=== PATIENT | female | born 1955 | race African-American/Black ===

== ENCOUNTER 2017-01-22 19:56 | Emergency (ER) | payer OTHER ==
[~2017-01-22] VITALS: Ht 160 cm; Wt 82.0 kg
[~2017-01-22 19:56] MED LIST: AMLO5TAB96 PO; CITA10SO PO; PRIL10CA PO; PRIN20TA2 PO; SIMV20 PO
[2017-01-22 20:17] VITALS: BP 132/71; PULSE 126; RESP 20; O2SAT 95
--- NOTE | 2017-01-22 20:19 | PD ---
HPI Chief Complaint: Anxiety Time Seen by Provider: 20:09 Travel History International Travel<30 days: No Contact w/Intl Traveler<30days: No Traveled to known affect area: No History of Present Illness HPI 61-year-old female with history of bipolar disorder, hypertension, GERD, presents to the emergency department voluntarily for psychiatric evaluation. Patient states she has been taking her medication as she has been instructed. She states today that she had a panic attack. She has not had one of these for quite some time and it caused her to be scared. She states she has been having worsening depression and bad thoughts. She does not elaborate on this. She states that she needs to talk to somebody. She denies suicidal or homicidal ideations. She denies any chest pain or tightness. No difficulty breathing. No recent illnesses, fever, or chills. She denies any other medical needs at this time. No other symptoms to report. PFSH Past Medical History Arthritis: Yes (osteoarthritis) Anxiety: Yes Depression: Yes Heart Rhythm Problems: Yes Cancer: No Cardiovascular Problems: Yes (says has a murmur) High Cholesterol: Yes Chest Pain: Yes (occas. by hx) Congestive Heart Failure: No Endocrine: No GERD: Yes Glaucoma: No Genitourinary: Yes (hx of "inflammed kidneys") Headaches: Yes Hepatitis: No Hypertension: Yes Immune Disorder: No Musculoskeletal: Yes Neurologic: Yes Psychiatric: Yes Reproductive: Yes (had hyst.) Respiratory: Yes Myocardial Infarction: No Sickle Cell Disease: No (says has "sickle cell trait") Sleep Apnea: No Past Surgical History Abdominal Surgery: Yes (cholecystectomy 10/25/09) Appendectomy: No Cholecystectomy: Yes (10/25/09) Gynecologic Surgery: Yes (hysterectomy--early 30's) Hysterectomy: Yes Oral Surgery: Yes (TEETH EXTRACTION) Social History Alcohol Use: No Tobacco Use: No Substance Use: No Allergies-Medications (Allergen,Severity, Reaction): Coded Allergies: penicillin G (Verified Allergy, Intermediate, Hives, 01/22/17) Reported Meds & Prescriptions Reported Meds & Active Scripts Active Reported Celexa (Citalopram Hydrobromide) 10 Mg/5 Ml Romy 20 Mg PO Prilosec (Omeprazole) 10 Mg Cap 0 PO UNKNOWN DOSE Prinivil (Lisinopril) 20 Mg Tab 20 Mg PO DAILY Norvasc (Amlodipine Besylate) 5 Mg Tab 5 Mg PO DAILY Zocor (Simvastatin) 20 Mg Tab 20 Mg PO HS Review of Systems Except as stated in HPI: all other systems reviewed are Neg Physical Exam Narrative GENERAL: Obese older than stated age appearing female patient, sitting in bed, in no acute distress SKIN: Focused skin assessment warm/dry. HEAD: Atraumatic. Normocephalic. EYES: Pupils equal and round. No scleral icterus. No injection or drainage. ENT: No nasal bleeding or discharge. Mucous membranes pink and moist. NECK: Trachea midline. No JVD. CARDIOVASCULAR: Tachycardic rate and rhythm. 2/6 systolic murmur appreciated. RESPIRATORY: No accessory muscle use. Clear to auscultation. Breath sounds equal bilaterally. GASTROINTESTINAL: Abdomen soft, non-tender, nondistended. Hepatic and splenic margins not palpable. MUSCULOSKELETAL: No obvious deformities. No clubbing. No cyanosis. No edema. NEUROLOGICAL: Awake and alert. No obvious cranial nerve deficits. Motor grossly within normal limits. Normal speech. Data Data Last Documented VS Vital Signs Date Time Temp Pulse Resp B/P (MAP) Pulse Ox O2 Delivery O2 Flow Rate FiO2 01/22/17 22:41 96 20 122/67 (85) 96 01/22/17 20:23 98.3 01/22/17 20:17 Room Air Orders Orders Complete Blood Count With Diff (01/22/17 20:14) Basic Metabolic Panel (Bmp) (01/22/17 20:14) Urinalysis - C+S If Indicated (01/22/17 20:14) Electrocardiogram (01/22/17 20:14) Iv Access Insert/Monitor (01/22/17 20:14) Psych Screen (01/22/17 20:14) Drug Screen, Random Urine (01/22/17 20:14) Alcohol (Ethanol) (01/22/17 20:14) Sodium Chlorid 0.9% 500 Ml Inj (Ns 500 M (01/22/17 20:30) Chest, Single Ap (01/22/17 ) Lorazepam Inj (Ativan Inj) (01/22/17 20:45) B-Type Natriuretic Peptide (01/22/17 20:50) Ckmb (Isoenzyme) Profile (01/22/17 20:50) D-Dimer (01/22/17 20:50) Magnesium (Mg) (01/22/17 20:50) Prothrombin Time / Inr (Pt) (01/22/17 20:50) Act Partial Throm Time (Ptt) (01/22/17 20:50) Troponin I (01/22/17 20:50) Urine Culture (01/22/17 21:00) CKMB (01/22/17 21:00) CKMB% (01/22/17 21:00) Ceftriaxone Inj (Rocephin Inj) (01/22/17 22:00) Sodium Chlor 0.9% 1000 Ml Inj (Ns 1000 M (01/22/17 22:00) Sodium Chlorid 0.9% 500 Ml Inj (Ns 500 M (01/22/17 22:45) Labs Laboratory Tests Test 01/22/17 20:20 01/22/17 21:00 White Blood Count 15.5 TH/MM3 Red Blood Count 5.10 MIL/MM3 Hemoglobin 13.5 GM/DL Hematocrit 40.4 % Mean Corpuscular Volume 79.2 FL Mean Corpuscular Hemoglobin 26.6 PG Mean Corpuscular Hemoglobin Concent 33.6 % Red Cell Distribution Width 14.3 % Platelet Count 477 TH/MM3 Mean Platelet Volume 7.3 FL Neutrophils (%) (Auto) 79.2 % Lymphocytes (%) (Auto) 12.5 % Monocytes (%) (Auto) 7.5 % Eosinophils (%) (Auto) 0.2 % Basophils (%) (Auto) 0.6 % Neutrophils # (Auto) 12.3 TH/MM3 Lymphocytes # (Auto) 1.9 TH/MM3 Monocytes # (Auto) 1.2 TH/MM3 Eosinophils # (Auto) 0.0 TH/MM3 Basophils # (Auto) 0.1 TH/MM3 CBC Comment DIFF FINAL Differential Comment Blood Urea Nitrogen 32 MG/DL Creatinine 1.93 MG/DL Random Glucose 111 MG/DL Calcium Level 9.5 MG/DL Sodium Level 136 MEQ/L Potassium Level 3.8 MEQ/L Chloride Level 100 MEQ/L Carbon Dioxide Level 26.1 MEQ/L Anion Gap 10 MEQ/L Estimat Glomerular Filtration Rate 32 ML/MIN Ethyl Alcohol Level LESS THAN 3 MG/DL Prothrombin Time 11.8 SEC Prothromb Time International Ratio 1.1 RATIO Activated Partial Thromboplast Time 26.1 SEC D-Dimer Quantitative (PE/DVT) 0.46 MG/L FEU Urine Color YELLOW Urine Turbidity HAZY Urine pH 5.0 Urine Specific [place] 1.015 Urine Protein TRACE mg/dL Urine Glucose (UA) NEG mg/dL Urine Ketones NEG mg/dL Urine Occult Blood SMALL Urine Nitrite NEG Urine Bilirubin NEG Urine Urobilinogen LESS THAN 2.0 MG/DL Urine Leukocyte Esterase LARGE Urine RBC 8 /hpf Urine WBC /hpf Urine WBC Clumps RARE Urine Squamous Epithelial Cells 6 /hpf Urine Transitional Epithelial Cells 5 /hpf Urine Amorphous Sediment RARE Urine Bacteria MANY /hpf Urine Hyaline Casts 2 /lpf Urine Mucus FEW /lpf Microscopic Urinalysis Comment CULTURE INDICATED Magnesium Level 2.3 MG/DL Total Creatine Kinase 114 U/L Creatine Kinase MB 2.1 NG/ML Troponin I LESS THAN 0.02 NG/ML B-Type Natriuretic Peptide 8 PG/ML Urine Opiates Screen NEG Urine Barbiturates Screen NEG Urine Amphetamines Screen NEG Urine Benzodiazepines Screen NEG Urine Cocaine Screen NEG Urine Cannabinoids Screen NEG MDM Medical Decision Making Medical Screen Exam Complete: Yes Emergency Medical Condition: Yes Medical Record Reviewed: Yes Differential Diagnosis Mood disorder versus personality disorder versus adjustment reaction disorder versus panic attack versus electrolyte abnormality versus arrhythmia Narrative Course 61-year-old female presents to emergency department voluntarily for psychiatric evaluation for worsening depression, anxiety, and a panic attack episode today. Patient currently appears without distress. She is tachycardic but denies any pain or shortness of breath. EKG is completely reviewed per my attending physician. Tachycardic rate with some st depression. The patient is not having any pain. Cardiac enzymes were added to lab work. Chest x-rays without acute cardiopulmonary disease. Patient is given some IV Ativan and IV normal saline fluid. Laboratory Tests Test 01/22/17 20:20 01/22/17 21:00 White Blood Count 15.5 TH/MM3 Red Blood Count 5.10 MIL/MM3 Hemoglobin 13.5 GM/DL Hematocrit 40.4 % Mean Corpuscular Volume 79.2 FL Mean Corpuscular Hemoglobin 26.6 PG Mean Corpuscular Hemoglobin Concent 33.6 % Red Cell Distribution Width 14.3 % Platelet Count 477 TH/MM3 Mean Platelet Volume 7.3 FL Neutrophils (%) (Auto) 79.2 % Lymphocytes (%) (Auto) 12.5 % Monocytes (%) (Auto) 7.5 % Eosinophils (%) (Auto) 0.2 % Basophils (%) (Auto) 0.6 % Neutrophils # (Auto) 12.3 TH/MM3 Lymphocytes # (Auto) 1.9 TH/MM3 Monocytes # (Auto) 1.2 TH/MM3 Eosinophils # (Auto) 0.0 TH/MM3 Basophils # (Auto) 0.1 TH/MM3 CBC Comment DIFF FINAL Differential Comment Blood Urea Nitrogen 32 MG/DL Creatinine 1.93 MG/DL Random Glucose 111 MG/DL Calcium Level 9.5 MG/DL Sodium Level 136 MEQ/L Potassium Level 3.8 MEQ/L Chloride Level 100 MEQ/L Carbon Dioxide Level 26.1 MEQ/L Anion Gap 10 MEQ/L Estimat Glomerular Filtration Rate 32 ML/MIN Ethyl Alcohol Level LESS THAN 3 MG/DL Prothrombin Time 11.8 SEC Prothromb Time International Ratio 1.1 RATIO Activated Partial Thromboplast Time 26.1 SEC D-Dimer Quantitative (PE/DVT) 0.46 MG/L FEU Urine Color YELLOW Urine Turbidity HAZY Urine pH 5.0 Urine Specific [place] 1.015 Urine Protein TRACE mg/dL Urine Glucose (UA) NEG mg/dL Urine Ketones NEG mg/dL Urine Occult Blood SMALL Urine Nitrite NEG Urine Bilirubin NEG Urine Urobilinogen LESS THAN 2.0 MG/DL Urine Leukocyte Esterase LARGE Urine RBC 8 /hpf Urine WBC /hpf Urine WBC Clumps RARE Urine Squamous Epithelial Cells 6 /hpf Urine Transitional Epithelial Cells 5 /hpf Urine Amorphous Sediment RARE Urine Bacteria MANY /hpf Urine Hyaline Casts 2 /lpf Urine Mucus FEW /lpf Microscopic Urinalysis Comment CULTURE INDICATED Magnesium Level 2.3 MG/DL Total Creatine Kinase 114 U/L Creatine Kinase MB 2.1 NG/ML Troponin I LESS THAN 0.02 NG/ML B-Type Natriuretic Peptide 8 PG/ML Urine Opiates Screen NEG Urine Barbiturates Screen NEG Urine Amphetamines Screen NEG Urine Benzodiazepines Screen NEG Urine Cocaine Screen NEG Urine Cannabinoids Screen NEG Patient tox screen is negative. Troponin is less than 0.02. Patient does have urinalysis findings consistent with UTI. She's given IV Rocephin here. She is medically cleared to undergo psychiatric screening for further evaluation and disposition. Mental health screening discussed with the patient. Psychiatric screen ordered. Diagnosis Primary Impression: Mood disorder Additional Impressions: Anxiety Depressed Qualified Codes: F32.9 - Major depressive disorder, single episode, unspecified UTI (urinary tract infection) Qualified Codes: N39.0 - Urinary tract infection, site not specified; R31.9 - Hematuria, unspecified Scripts Cephalexin (Keflex) 500 Mg Cap 500 MG PO Q12H for Infection for 7 Days, CAP 0 Refills Prov: Chinyere Russo 01/22/17 Condition: Stable Chinyere Russo Jan 22, 2017 20:19
[2017-01-22 20:23] VITALS: BP 132/71; PULSE 126; RESP 20; TEMP 98.3
[2017-01-22] MEDS ORDERED: SODIUM CHLORID 0.9% 500 ML INJ 500 ML IV ONE ×2 (20:30→22:45)
[2017-01-22 20:40] LABS: AUTOMATED NEUTROPHIL # 12.3 TH/MM3 (1.8-7.7); BASOPHIL # 0.1 TH/MM3 (0-0.2); BASOPHIL % 0.6 % (0.0-2.0); EOSINOPHIL % 0.2 % (0.0-4.0); HEMATOCRIT 40.4 % (35.0-46.0); HEMO FLAGS DIFF FINAL; LYMPH % 12.5 % (9.0-44.0); LYMPHOCYTE # 1.9 TH/MM3 (1.0-4.8); MEAN CELL VOLUME 79.2 FL (80.0-100.0); MEAN CORPUSCULAR HEMOGLOBIN 26.6 PG (27.0-34.0); MEAN CORPUSCULAR HGB CONC 33.6 % (32.0-36.0); MONO % 7.5 % (0.0-8.0); NEUT % 79.2 % (16.0-70.0); PLATELET COUNT 477 TH/MM3 (150-450); RED CELL DISTRIBUTION WIDTH 14.3 % (11.6-17.2); WHITE BLOOD COUNT 15.5 TH/MM3 (4.0-11.0)
[2017-01-22] MEDS ORDERED: LORazepam 2 MG/ML VIAL IV PUSH ONE (20:45)
[2017-01-22 21:00] LABS: ANION GAP 10 MEQ/L (5-15); BICARBONATE 26.1 MEQ/L (21.0-32.0); BLOOD UREA NITROGEN 32 MG/DL (7-18); CHLORIDE 100 MEQ/L (98-107); GLOMERULAR FILTRATION RATE 32 ML/MIN (>89); POTASSIUM 3.8 MEQ/L (3.5-5.1); SODIUM (NA) 136 MEQ/L (136-145)
[2017-01-22 21:01] LABS: ALCOHOL LESS THAN 3 MG/DL (0-5)
--- NOTE | 2017-01-22 21:37 | RADRPT ---
EXAM DATE/TIME: 01/22/2017 20:30 [place] COMPARISON: CHEST SINGLE AP, November 12, 2009, 9:50. INDICATIONS : Short of breath. MEDICAL HISTORY : None. SURGICAL HISTORY : None. ENCOUNTER: Initial ACUITY: 1 day PAIN SCORE: 0/10 LOCATION: Bilateral chest FINDINGS: A single view of the chest demonstrates the lungs to be symmetrically aerated without evidence of mas s, infiltrate or effusion. The cardiomediastinal contours are unremarkable. Osseous structures are intact. CONCLUSION: No acute disease. Riley Hopkins MD on January 22, 2017 at 21:35 Board Certified Radiologist. This report was verified electronically.
[2017-01-22 21:43] LABS: BACTERIA, URINE MANY /hpf; BLOOD, URINE SMALL (NEG); COMMENT (UR) CULTURE INDICATED; CULTURE IF INDICATED CULTURE INDICATED; GLUCOSE,URINE NEG (NEG); HYALINE CAST, URINE 2 /lpf (RARE); KETONE, URINE NEG (NEG); MUCUS URINE FEW /lpf (OCC); NITRITE,URINE NEG (NEG); SQUAMOUS EPITHELIAL CELL URINE 6 /hpf (0-5); TRANSITIONAL EPI CELLS, URINE 5 /hpf; URINE COLOR YELLOW (YELLW/STRAW)
[2017-01-22 21:52] LABS: MAGNESIUM 2.3 MG/DL (1.5-2.5)
[2017-01-22 21:55] LABS: CREATINE KINASE 114 U/L (26-192)
[2017-01-22] MEDS ORDERED: cefTRIAXone INJ 1,000 MG in SODIUM CHLORIDE 0.9% INJ 100 ML IV ONE (22:00)
[2017-01-22] MEDS ORDERED: SODIUM CHLOR 0.9% 1000 ML INJ 1,000 ML IV ONE (22:00)
[2017-01-22 22:08] LABS: CKMB 2.1 NG/ML (0.5-3.6)
[2017-01-22 22:23] LABS: APTT (PATIENT) 26.1 SEC (24.3-30.1); INTERNATIONAL NORMALIZED RATIO 1.1 RATIO; PROTHROMBIN TIME - PATIENT 11.8 SEC (9.8-11.6)
[2017-01-22 22:41] VITALS: BP 122/67; PULSE 96; RESP 20; O2SAT 96
[2017-01-22] MEDS ORDERED: CEPH-460 PO (23:57)
[2017-01-23 01:43] VITALS: BP 139/67; PULSE 106; RESP 20; O2SAT 99
[2017-01-23 12:52] VITALS: BP 130/70; PULSE 103; RESP 18; TEMP 98.3; O2SAT 98
[2017-01-23] MEDS ORDERED: BUSP10TA PO (17:59)
[2017-01-23] MEDS ORDERED: BENZ0.5T PO ×2 (17:59→18:54)
[2017-01-23] MEDS ORDERED: RISP2TAB37 PO (17:59)
[2017-01-23] MEDS ORDERED: REME45TA PO (17:59)
[2017-01-23] MEDS ORDERED: ZOLO100T PO (17:59)
[2017-01-23] MEDS ORDERED: AMIT100T2 PO (17:59)
[2017-01-23] MEDS ORDERED: LURA20TA PO (17:59)
[2017-01-23] MEDS ORDERED: CITA20TA4 PO (18:13)
[2017-01-23] MEDS ORDERED: OMEP10CA PO (18:13)
[2017-01-23] MEDS ORDERED: SIMV20TA PO (18:13)
[2017-01-23] MEDS ORDERED: AMLO5TAB2 PO (18:13)
[2017-01-23 18:15] VITALS: BP 138/68; PULSE 109; RESP 18; O2SAT 98
[2017-01-23] MEDS ORDERED: FLUC150T PO (18:48)
[2017-01-23] MEDS ORDERED: LOVA20TA PO (18:48)
[2017-01-23] MEDS ORDERED: HYDR12.56 PO (18:51)
[2017-01-23] MEDS ORDERED: GABA400C5 PO (18:56)
[2017-01-23 19:40] VITALS: BP 132/72; PULSE 88; RESP 20; O2SAT 97
[2017-01-23] MEDS ORDERED: VIST50CA PO (20:54)
[2017-01-23] MEDS ORDERED: ALPR.5 PO (20:54)
[2017-01-23] MEDS ORDERED: ISOS20TA PO (20:55)
[2017-01-23] MEDS ORDERED: NITROFURANTOIN MONOHYD MACROCR 100 MG CAP PO ONE (23:15)
[2017-01-23] MEDS ORDERED: LORazepam 1 MG TAB PO ONE (23:15)
[2017-01-23 23:42] VITALS: BP 145/92; PULSE 107; RESP 24; O2SAT 98
[2017-01-24 00:32] VITALS: BP 120/68; PULSE 92; RESP 20; O2SAT 96
[2017-01-24 06:34] VITALS: BP 144/88; PULSE 106; RESP 22; O2SAT 100
--- NOTE | 2017-01-24 11:40 | PD ---
History of Present Illness Chief Complaint: Anxiety Time Seen by Provider: 11:35 Travel History International Travel<30 Days: No Contact w/Intl Traveler<30days: No Known affected area: No Legal Status Legal Status: Voluntary History of Present Illness: History of Present Illness HPI 61-year-old female with history of depression and anxiety who presents to the emergency department voluntarily for psychiatric evaluation due to having had a panic attack. She has not had one of these for quite some time and it caused her to be scared. She states that she needs to talk to somebody. Patient seen. EMR reviewed. [place] [facility] [place] the care of . She has also been hospitalized at the [facility] The patient is seen with Herbert, case loader operator. She is an obese AA female who is dressed i [facility] go. She is awake, alert and humming. She is rocking back and forth in her bed. Speech is of low tone but she answers questions appropriately. She states that she has bee feeling anxious and has not been able to get the medications that she had taken in the past since she is going to [facility]. She denies any suicdal or homicidal ideation,intent or plan. No psychosis and no rachelle. Sanjana has been dx with a UTI as well. PFSH Past Medical History Arthritis: Yes (osteoarthritis) Bipolar Disorder: Yes Anxiety: Yes Depression: Yes Heart Rhythm Problems: Yes Cancer: No Cardiovascular Problems: Yes (says has a murmur) High Cholesterol: Yes Chest Pain: Yes (occas. by hx) Congestive Heart Failure: No Endocrine: No GERD: Yes Glaucoma: No Genitourinary: Yes (hx of "inflammed kidneys") Headaches: Yes Hepatitis: No Hypertension: Yes Immune Disorder: No Musculoskeletal: Yes Neurologic: Yes Psychiatric: Yes Reproductive: Yes (had hyst.) Respiratory: Yes Myocardial Infarction: No Sickle Cell Disease: No (says has "sickle cell trait") Sleep Apnea: No Tetanus Vaccination: Unknown ?: Not Past Surgical History Surgical History: Unable to Obtain Abdominal Surgery: Yes (cholecystectomy 10/25/09) Appendectomy: No Cholecystectomy: Yes (10/25/09) Gynecologic Surgery: Yes (hysterectomy--early 30's) Hysterectomy: Yes Oral Surgery: Yes (TEETH EXTRACTION) Psychiatric History Psychiatric History Hx Psychiatric Treatment: HAS BEEN TO THE [facility] TWICE. HER LAST ADMISSION HERE WAS IN 2009 HX OF [place]IA, PSYCHOTIC DEPRESSION History of Inpatient Treatment: Yes Guns or firearms in home: No Social History x 12 yeras. Lives with . has 2 daughters. Hx Alcohol Use: No Hx Tobacco Use: No Hx Substance Use: No Hx of Substance Use Treatment: No Family Psychiatric History Negative Allergies-Medications (Allergen,Severity, Reaction): Coded Allergies: penicillin G (Verified Allergy, Intermediate, Hives, 01/22/17) Reported Meds & Prescriptions Reported Meds & Active Scripts Active Keflex (Cephalexin) 500 Mg Cap 500 Mg PO Q12H 7 Days Reported Isosorbide Mononitrate 20 Mg Tab 30 Mg PO BID Take 2 doses 7 hours apart. Xanax (Alprazolam) 0.5 Mg Tab 0.5 Mg PO Q8H PRN Vistaril (Hydroxyzine Pamoate) 50 Mg Cap 50 Mg PO BID Benztropine (Benztropine Mesylate) 0.5 Mg Tab 1 Mg PO HS Hydrochlorothiazide 12.5 Mg Tab 12.5 Mg PO DAILY Lovastatin 20 Mg Tab 20 Mg PO DAILY Fluconazole 150 Mg Tab 150 Mg PO DAILY Amlodipine (Amlodipine Besylate) 5 Mg Tab 5 Mg PO DAILY Latuda (Lurasidone) 20 Mg Tab 80 Mg PO HS Buspirone (Buspirone HCl) 10 Mg Tab 10 Mg PO TID PRN Remeron (Mirtazapine) 45 Mg Tab 45 Mg PO HS Review of Systems Except as stated in HPI: all other systems reviewed are Neg Exam Alert: Yes Mobile: Person (ox4) Mood: Anxious Affect: Restricted Speech: Clear, Logical Eye Contact: Indirect Memory Intact: Comment (No impairment) Hallucinations: Other (Negative) Delusions: No Suicidal: Ideation (deneis any) Homicidal: Ideation (deneis any) Insight/Judgement Fair. Not impaired. MDM Medical Decision Making Medical Record Reviewed: Yes Assessment/Plan 61-year-old female with history of depression and anxiety who presents to the emergency department voluntarily for psychiatric evaluation due to having had a panic attack. reports s he has been unable to get Ativan which has helped her in the past because it is not prescribed at [facility]. her is making arrangements for her to be seen at another clinic. patient will like to receive a prescription for such medication. Case consulted with Dr. Rivera. He will prescribe Ativan 0.5 mg , prn for sxs of anxiety. Cleared from psychiatry for discharge . To follow up with outpatient provider. Orders Orders Lorazepam (Ativan) (01/23/17 23:15) Nitrofurantoin Monohyd Macrocr (Macrobid (01/23/17 23:15) Results Vital Signs Date Time Temp Pulse Resp B/P (MAP) Pulse Ox O2 Delivery O2 Flow Rate FiO2 01/24/17 06:34 106 22 144/88 (106) 100 Room Air 01/24/17 00:32 92 20 120/68 (85) 96 Room Air 01/23/17 23:42 107 24 145/92 (109) 98 Room Air 01/23/17 19:40 88 20 132/72 (92) 97 Room Air 01/23/17 18:15 109 18 138/68 (91) 98 01/23/17 12:52 98.3 103 18 130/70 (90) 98 Room Air Date/Time Source Procedure Growth Status 01/22/17 21:00 Urine Random Urine Urine Culture - Final 50-100,000 CFU/ML MIXED GRAM POSITIVE... Complete Diagnosis Primary Impression: Anxiety Additional Impression: UTI (urinary tract infection) Ruled Out: Depressed Psychiatrically Cleared: Yes Departure Forms: Tests/Procedures Patient Instructions: General Instructions Med/ Other Pt Specific Info: Prescription(s) given Prescriptions Lorazepam (Ativan) 0.5 Mg Tab 0.5 MG PO Q8H Y for ANXIETY AND/OR AGITATION, #30 TAB 0 Refills Prov: Bennett Rivera MD 01/24/17 Cephalexin (Keflex) 500 Mg Cap 500 MG PO Q12H for Infection for 7 Days, CAP 0 Refills Prov: Chinyere Russo 01/22/17 Disposition: 01 DISCHARGE HOME Condition: Stable Problem Qualifiers Additional Impression: UTI (urinary tract infection) Qualified Codes: N39.0 - Urinary tract infection, site not specified; R31.9 - Hematuria, unspecified Ruchi Angelos Amaya STRANGE Jan 24, 2017 11:40
--- NOTE | 2017-01-24 11:44 | EKG ---
Date Performed: 01/22/2017 Time Performed: 20:46:29 PTAGE: 61 years EKG: SINUS TACHYCARDIA DIFFUSE ST T WAVE ABNORMALITIES WHICH COULD BE SECONDARY TO LVH POSSIBLY OR DUE TO ISCHEMIA CLINICAL CORRELATION NEEDED ABNORMAL ECG NO PREVIOUS TRACING DOCTOR: Lang Lux Interpretating Date/Time 01/24/2017 11:44:13
--- NOTE | 2017-01-24 11:51 | PD ---
Physical Exam Date Seen by Provider: Jan 24, 2017 Time Seen by Provider: 11:48 Narrative I have spoken to [facility] and patient has been cleared for discharge by Dr. Rivera. Her medications were updated. I have spoken to the patient. She is not suicidal or homicidal. She will be sent home with her . Data Data Last Documented VS Vital Signs Date Time Temp Pulse Resp B/P (MAP) Pulse Ox O2 Delivery O2 Flow Rate FiO2 01/24/17 06:34 106 22 144/88 (106) 100 Room Air 01/23/17 12:52 98.3 Orders Orders Complete Blood Count With Diff (01/22/17 20:14) Basic Metabolic Panel (Bmp) (01/22/17 20:14) Urinalysis - C+S If Indicated (01/22/17 20:14) Electrocardiogram (01/22/17 20:14) Iv Access Insert/Monitor (01/22/17 20:14) Psych Screen (01/22/17 20:14) Drug Screen, Random Urine (01/22/17 20:14) Alcohol (Ethanol) (01/22/17 20:14) Sodium Chlorid 0.9% 500 Ml Inj (Ns 500 M (01/22/17 20:30) Chest, Single Ap (01/22/17 ) Lorazepam Inj (Ativan Inj) (01/22/17 20:45) B-Type Natriuretic Peptide (01/22/17 20:50) Ckmb (Isoenzyme) Profile (01/22/17 20:50) D-Dimer (01/22/17 20:50) Magnesium (Mg) (01/22/17 20:50) Prothrombin Time / Inr (Pt) (01/22/17 20:50) Act Partial Throm Time (Ptt) (01/22/17 20:50) Troponin I (01/22/17 20:50) Urine Culture (01/22/17 21:00) CKMB (01/22/17 21:00) CKMB% (01/22/17 21:00) Ceftriaxone Inj (Rocephin Inj) (01/22/17 22:00) Sodium Chlor 0.9% 1000 Ml Inj (Ns 1000 M (01/22/17 22:00) Sodium Chlorid 0.9% 500 Ml Inj (Ns 500 M (01/22/17 22:45) Diet Regular Basic (01/23/17 Breakfast) Lorazepam (Ativan) (01/23/17 23:15) Nitrofurantoin Monohyd Macrocr (Macrobid (01/23/17 23:15) Labs Laboratory Tests Test 01/22/17 20:20 01/22/17 21:00 White Blood Count 15.5 TH/MM3 Red Blood Count 5.10 MIL/MM3 Hemoglobin 13.5 GM/DL Hematocrit 40.4 % Mean Corpuscular Volume 79.2 FL Mean Corpuscular Hemoglobin 26.6 PG Mean Corpuscular Hemoglobin Concent 33.6 % Red Cell Distribution Width 14.3 % Platelet Count 477 TH/MM3 Mean Platelet Volume 7.3 FL Neutrophils (%) (Auto) 79.2 % Lymphocytes (%) (Auto) 12.5 % Monocytes (%) (Auto) 7.5 % Eosinophils (%) (Auto) 0.2 % Basophils (%) (Auto) 0.6 % Neutrophils # (Auto) 12.3 TH/MM3 Lymphocytes # (Auto) 1.9 TH/MM3 Monocytes # (Auto) 1.2 TH/MM3 Eosinophils # (Auto) 0.0 TH/MM3 Basophils # (Auto) 0.1 TH/MM3 CBC Comment DIFF FINAL Differential Comment Blood Urea Nitrogen 32 MG/DL Creatinine 1.93 MG/DL Random Glucose 111 MG/DL Calcium Level 9.5 MG/DL Sodium Level 136 MEQ/L Potassium Level 3.8 MEQ/L Chloride Level 100 MEQ/L Carbon Dioxide Level 26.1 MEQ/L Anion Gap 10 MEQ/L Estimat Glomerular Filtration Rate 32 ML/MIN Ethyl Alcohol Level LESS THAN 3 MG/DL Prothrombin Time 11.8 SEC Prothromb Time International Ratio 1.1 RATIO Activated Partial Thromboplast Time 26.1 SEC D-Dimer Quantitative (PE/DVT) 0.46 MG/L FEU Urine Color YELLOW Urine Turbidity HAZY Urine pH 5.0 Urine Specific [place] 1.015 Urine Protein TRACE mg/dL Urine Glucose (UA) NEG mg/dL Urine Ketones NEG mg/dL Urine Occult Blood SMALL Urine Nitrite NEG Urine Bilirubin NEG Urine Urobilinogen LESS THAN 2.0 MG/DL Urine Leukocyte Esterase LARGE Urine RBC 8 /hpf Urine WBC /hpf Urine WBC Clumps RARE Urine Squamous Epithelial Cells 6 /hpf Urine Transitional Epithelial Cells 5 /hpf Urine Amorphous Sediment RARE Urine Bacteria MANY /hpf Urine Hyaline Casts 2 /lpf Urine Mucus FEW /lpf Microscopic Urinalysis Comment CULTURE INDICATED Magnesium Level 2.3 MG/DL Total Creatine Kinase 114 U/L Creatine Kinase MB 2.1 NG/ML Troponin I LESS THAN 0.02 NG/ML B-Type Natriuretic Peptide 8 PG/ML Urine Opiates Screen NEG Urine Barbiturates Screen NEG Urine Amphetamines Screen NEG Urine Benzodiazepines Screen NEG Urine Cocaine Screen NEG Urine Cannabinoids Screen NEG MDM Medical Record Reviewed: Yes Supervised Visit with TAPAN: No Differential Diagnosis mood disorder, UTI Narrative Course Patient cleared for discharge. Her will pick her up and take her home. Diagnosis Primary Impression: Mood disorder Additional Impressions: Depressed Qualified Codes: F32.9 - Major depressive disorder, single episode, unspecified Anxiety UTI (urinary tract infection) Qualified Codes: N39.0 - Urinary tract infection, site not specified; R31.9 - Hematuria, unspecified Patient Instructions: General Instructions Departure Forms: Tests/Procedures Scripts Cephalexin (Keflex) 500 Mg Cap 500 MG PO Q12H for Infection for 7 Days, CAP 0 Refills Prov: Chinyere Russo 01/22/17 Disposition: 01 DISCHARGE HOME Condition: Stable Angelica Fletcher Jan 24, 2017 11:51
[2017-01-24] MEDS ORDERED: LORazepam 0.5 MG TAB PO PRN (12:00)
[2017-01-24] MEDS ORDERED: LORA-392 PO (13:16)
== END 2017-01-24 13:59 | disposition home or self-care (01) ==
LOC: NEPD 19:56
DX: F39 Unspecified mood [affective] disorder (principal); F32.9 Major depressive disorder, single episode, unspecified; F41.9 Anxiety disorder, unspecified; N39.0 Urinary tract infection, site not specified; F31.9 Bipolar disorder, unspecified; K21.9 Gastro-esophageal reflux disease without esophagitis; I10 Essential (primary) hypertension; E78.00 Pure hypercholesterolemia, unspecified; M19.90 Unspecified osteoarthritis, unspecified site
CPT/HCPCS: 71010; 80048; 80307; 81001; 82550; 82552; 83735; 83880; 84484; 85025; 85379; 85610; 85730; 87086; 93005; 96361; 96365; 96375; 99285; J0696; J2060; J7030; J7040

== ENCOUNTER 2018-03-18 10:59 | Inpatient (IN) ==
[2018-03-18 13:06] LABS: Baso # (Auto) 0.1 th/mm3 (0.0-0.2); Baso % (Auto) 0.4 % (0.0-2.0); Hematocrit 40.3 % (35.0-46.0); Hemoglobin 13.4 gm/dL (11.6-15.3); Lymph # (Auto) 1.7 th/mm3 (1.0-4.8); Mean Corpuscular HGB Conc 33.3 % (32.0-36.0); Mean Corpuscular Hemoglobin 27.3 pg (27.0-34.0); Mean Corpuscular Volume 81.8 fL (80.0-100.0); Mean Platelet Volume 8.1 fL (7.0-11.0); Mono # (Auto) 1.2 th/mm3 (0.0-0.9); Mono % (Auto) 7.6 % (0.0-8.0); Neut # (Auto) 12.6 th/mm3 (1.8-7.7); Platelet Count 437 th/mm3 (150-450); Red Blood Count 4.92 mil/mm3 (4.00-5.30); White Blood Count 15.6 th/mm3 (4.0-11.0)
[2018-03-18 13:21] LABS: Alanine Aminotransferase 29 U/L (10-53); Albumin 4.5 g/dL (3.4-5.0); Anion Gap 13 meq/L (5-15); Aspartate Aminotransferase 56 U/L (15-37); Blood Urea Nitrogen 32 mg/dL (7-18); Calcium 9.1 mg/dL (8.5-10.1); Carbon Dioxide 24.5 meq/L (21.0-32.0); Chloride 98 meq/L (98-107); Glomerular Filtration Rate 29 mL/min (>89); Glucose,Random 108 mg/dL (74-106); Magnesium 2.4 mg/dL (1.5-2.5); Sodium 135 meq/L (136-145)
[2018-03-18 13:31] LABS: Alkaline Phosphatase 123 U/L (45-117)
[2018-03-18] MEDS ORDERED: Ibuprofen 600 MG Tablet PO ONE (16:12)
--- NOTE | 2018-03-18 18:34 | ED ---
HPI General Chief Complaint: Psychiatric Symptoms Stated Complaint: Psych Eval/EPD Time Seen by Provider: 03/18/18 14:16 Source: patient Mode of arrival: ambulatory Limitations: no limitations History of Present Illness HPI Narrative: 62-year-old female presents to the emergency room under Monae act for evaluation of suicidal ideation. Patient is a poor historian. States she went to the police department for unrelated reasons and ended up being placed under a Monae act and brought to the emergency room. States she has been feeling suicidal. She has not been taking her bipolar medication for an unspecified amount of time. She denies any homicidal ideation. States she sees pictures on the wall that are staring at her that they are not telling her to do anything. She denies any illicit drug use. Reports a mild tension headache that started earlier today because of all the things she is going through. Patient denies any illicit drug use per MD complaint: Reports suicidal ideation and feels depressed Onset (ago): day(s) Duration: constant History of same: Yes Relieving factors: none Exacerbating factors: none Context: Reports not taking psychiatric medications Associated symptoms: Reports headache Treatments prior to arrival: Reports placed on mental health hold If self harm: admits thoughts of self harm Related Data Home Medications Medication Instructions Recorded Confirmed losartan mg PO DAILY 03/18/18 lovastatin mg PO DAILY 03/18/18 lurasidone [Latuda] mg PO DAILY 03/18/18 mirtazapine 03/18/18 Allergies Allergy/AdvReac Type Severity Reaction Status Date / Time penicillin G Allergy Intermediate Hives Verified 03/18/18 12:02 Review of Systems ROS: all other systems reviewed are negative PMFSH Medical History Medical History Back pain (Acute) Confusion (Acute) Depression (Acute) High cholesterol (Acute) History of hysterectomy (Acute) Hypertension (Acute) Surgical History Surgical History Hx of cholecystectomy (Acute) Social History Social History Substance History: No History of Abuse Smoking Status: Former smoker How Often Do You Have a Drink Containing Alcohol: Never Recent Travel in [place] within the Last 8 Weeks: No Recent Out of Country Travel within the Last 8 Weeks: No Immunization History Tetanus Immunization: Unsure Exam Narrative Exam Narrative: GENERAL: Well-nourished, well-developed female no acute distress. Afebrile. Ambulatory. SKIN: Focused skin assessment warm/dry. HEAD: Normocephalic. EYES: No scleral icterus. No injection or drainage. NECK: Supple, trachea midline. No JVD or lymphadenopathy. CARDIOVASCULAR: Regular rate and rhythm without murmurs, gallops, or rubs. RESPIRATORY: Breath sounds equal bilaterally. No accessory muscle use. PSYCHIATRIC: No delusional thought processes. Patient does not appear to be responding to internal stimuli. Flat affect. Course Initial Documented Vital Signs Temperature 98.9 F 03/18/18 11:40 Pulse Rate 122 H 03/18/18 11:40 Respiratory Rate 20 03/18/18 11:40 Blood Pressure 180/94 H 03/18/18 11:40 Pulse Oximetry 99 03/18/18 11:40 Last Documented Vital Signs Temperature 98.4 F 03/18/18 18:26 Pulse Rate 88 03/18/18 18:26 Respiratory Rate 18 03/18/18 18:26 Blood Pressure 153/77 H 03/18/18 18:26 Pulse Oximetry 96 03/18/18 18:26 Medical Decision Making MDM Narrative Medical decision making narrative: 62-year-old female presents the emergency room for evaluation of suicidal ideation. She is placed under Monae act by police apartment. Patient states she has not been taking her medication for bipolar disorder in a long time. She only complains of a mild headache for which she was treated with ibuprofen in the ED. No other physical complaints. Vital signs stable. CBC is essentially unremarkable. CMP shows evidence of dehydration. Patient had mildly decreased potassium which was replaced orally in the ED. Her creatinine is mildly elevated, consistent from previous. She is medically cleared for psychiatric evaluation. Medical Screen Exam Complete: Yes Emergency Medical Condition: Yes Differential Diagnosis Differential Diagnosis: Bipolar disorder, psychosis, substance abuse Lab Data Result diagrams: 03/18/18 11:56 03/18/18 11:56 Lab Results 03/18/18 03/18/18 Range/Units 11:56 11:56 WBC 15.6 H (4.0-11.0) th/mm3 RBC 4.92 (4.00-5.30) mil/mm3 Hgb 13.4 (11.6-15.3) gm/dL Hct 40.3 (35.0-46.0) % MCV 81.8 (80.0-100.0) fL MCH 27.3 (27.0-34.0) pg MCHC 33.3 (32.0-36.0) % RDW 15.0 (11.6-17.2) % Plt Count 437 (150-450) th/mm3 MPV 8.1 (7.0-11.0) fL Neut % (Auto) 81.0 H (16.0-70.0) % Lymph % (Auto) 11.0 (9.0-44.0) % Howell % (Auto) 7.6 (0.0-8.0) % Eos % (Auto) 0.0 (0.0-4.0) % Baso % (Auto) 0.4 (0.0-2.0) % Neut # (Auto) 12.6 H (1.8-7.7) th/mm3 Lymph # (Auto) 1.7 (1.0-4.8) th/mm3 Howell # (Auto) 1.2 H (0.0-0.9) th/mm3 Eos # (Auto) 0.0 (0.0-0.4) th/mm3 Baso # (Auto) 0.1 (0.0-0.2) th/mm3 WBC Differential . Differential Comment Auto diff final Sodium 135 L (136-145) meq/L Potassium 3.0 L (3.5-5.1) meq/L Chloride 98 (98-107) meq/L Carbon Dioxide 24.5 (21.0-32.0) meq/L Anion Gap 13 (5-15) meq/L BUN 32 H (7-18) mg/dL Creatinine 2.09 H (0.50-1.00) mg/dL Estimated GFR 29 L (>89) mL/min Random Glucose 108 H (74-106) mg/dL Calcium 9.1 (8.5-10.1) mg/dL Magnesium 2.4 (1.5-2.5) mg/dL Total Bilirubin 0.6 (0.2-1.0) mg/dL AST 56 H (15-37) U/L ALT 29 (10-53) U/L Alkaline Phosphatase 123 H (45-117) U/L Total Protein 9.0 H (6.4-8.2) g/dL Albumin 4.5 (3.4-5.0) g/dL TSH 1.410 (0.358-3.740) uIU/mL Serum Alcohol Less than 3 (0-5) mg/dL Discharge Plan Discharge Disposition Patient Disposition: 30 Still Patient Physicians Team ED Provider: Arvin Terry ED Midlevel Provider: Vikki Jessica Primary Care Provider: UNKNOWN, Rxs /Orders / Referrals /Forms Prescriptions: No Action losartan 25 mg Tablet PO DAILY RF: 0 lovastatin 20 mg Tablet PO DAILY RF: 0 mirtazapine 7.5 mg Tablet RF: 0 lurasidone [Latuda] 20 mg Tablet PO DAILY RF: 0 Discharge Interventions Interventions: Vital Signs Last Done: 03/18/18 18:26 Status ED Status: Medically Cleared
[2018-03-18 21:26] LABS: Amphetamine Screen,Urine Neg (Neg); Barbiturate Screen,Urine Neg (Neg); Cannabinoid Screen,Urine Neg (Neg); Cocaine Screen,Urine Neg (Neg)
[2018-03-18 21:29] LABS: Opiate Screen,Urine Neg (Neg)
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
[2018-03-20 09:56] LABS: Baso # (Auto) 0.1 th/mm3 (0.0-0.2); Baso % (Auto) 0.4 % (0.0-2.0); Eos % (Auto) 0.2 % (0.0-4.0); Hematocrit 41.5 % (35.0-46.0); Hemoglobin 13.6 gm/dL (11.6-15.3); Lymph # (Auto) 1.7 th/mm3 (1.0-4.8); Mean Corpuscular HGB Conc 32.7 % (32.0-36.0); Mean Corpuscular Hemoglobin 27.2 pg (27.0-34.0); Mean Corpuscular Volume 83.1 fL (80.0-100.0); Mean Platelet Volume 7.7 fL (7.0-11.0); Mono # (Auto) 1.3 th/mm3 (0.0-0.9); Mono % (Auto) 8.9 % (0.0-8.0); Neut % (Auto) 78.5 % (16.0-70.0); Platelet Count 470 th/mm3 (150-450); Red Blood Count 4.99 mil/mm3 (4.00-5.30); Red Cell Distribution Width 14.8 % (11.6-17.2)
[2018-03-20 09:57] LABS: Bacteria,Urine Occasional /hpf; Bilirubin,Urine Negative (Negative); Clarity,Urine Hazy (Clear); Color,Urine Yellow (Yellw/Straw); Glucose,Urine (UA) Negative (Negative); Hyaline Casts,Urine 4 /lpf (0-3); Leukocyte Esterase,Urine Negative (Negative); Mucus,Urine Few /lpf (Occasional); Nitrite,Urine Negative (Negative); Specific Gravity,Urine 1.014 (1.002-1.035); Squamous Epithelial Cell,Urine 7 /hpf (0-5)
[2018-03-20 10:22] LABS: Calcium 9.8 mg/dL (8.5-10.1); Carbon Dioxide 23.8 meq/L (21.0-32.0); Potassium 3.1 meq/L (3.5-5.1)
[2018-03-20 10:27] LABS: Baso # (Auto) 0.1 th/mm3 (0.0-0.2); Baso % (Auto) 0.6 % (0.0-2.0); Eos % (Auto) 0.1 % (0.0-4.0); Hemoglobin 12.8 gm/dL (11.6-15.3); Lymph # (Auto) 1.2 th/mm3 (1.0-4.8); Lymph % (Auto) 8.5 % (9.0-44.0); Mean Corpuscular HGB Conc 33.6 % (32.0-36.0); Mean Corpuscular Hemoglobin 27.3 pg (27.0-34.0); Mean Corpuscular Volume 81.1 fL (80.0-100.0); Mean Platelet Volume 7.4 fL (7.0-11.0); Mono # (Auto) 1.2 th/mm3 (0.0-0.9); Mono % (Auto) 8.2 % (0.0-8.0); Neut % (Auto) 82.6 % (16.0-70.0); Platelet Count 405 th/mm3 (150-450); Red Blood Count 4.69 mil/mm3 (4.00-5.30); Red Cell Distribution Width 14.7 % (11.6-17.2); White Blood Count 14.6 th/mm3 (4.0-11.0)
--- NOTE | 2018-03-20 10:43 | XR ---
EXAM DATE: 03/20/2018 10:37 AM EDT AGE/SEX: 62 years / Female INDICATIONS: Short of Breath. CLINICAL DATA: This is the patient's initial encounter. Patient reports that signs and symptoms have been present for 1 day and indicates a pain score of 0/10. MEDICAL/SURGICAL HISTORY: None. None. COMPARISON: [facility] [place], CHEST SINGLE AP, 01/22/2017. . FINDINGS: A single AP view of the chest demonstrates the lungs to be symmetrically aerated without evidence of mass, infiltrate or effusion. Elevated right hemidiaphragm The cardiomediastinal contours are unremar kable. Osseous structures are intact. CONCLUSION: No acute findings. Elevated right hemidiaphragm similar to December 2016. Electronically signed by: Armond Zaragoza MD 03/20/2018 10:42 AM EDT
[2018-03-20 10:49] LABS: Chol/HDL Ratio 3.41 Ratio; HDL Cholesterol 47.1 mg/dL (40.0-60.0)
--- NOTE | 2018-03-20 10:50 | P.CONIM ---
History of Present Illness Service: [facility] Consult date: 03/20/18 Reason for Consult: medical management Primary Care Provider: UNKNOWN Chief Complaint: tachycardia, fever History of Present Illness: This is a 62-year-old, , female, lives with , with history of bipolar disorder, depression, anxiety, multiple psychiatric admissions presents to the emergency room under Monae act initiated by law enforcement for evaluation of suicidal ideation. Patient was admitted to psychiatric unit for psychiatric management. Medicine team was consulted for medical management. Patient seen and examined sitting in the chair, Halicat the room, nurses called for elevated heart rate and slight temperature. Recommended to patient transfer to psychiatric med psych have it however bed is not available. Patient denies any pain, chest pain or shortness of breath, denies any palpitation. Denies any headache or dizziness, denies any abdominal pain, nausea, vomiting, diarrhea or constipation. Patient denies any fever or chills. Nurse reported blood sugar at this time 120s, heart rate 12 25 blood pressure 144/81 with temperature of 100.4 Fahrenheit. However 12-lead EKG showed heart rate of 84 and is a normal sinus rhythm. Review of Systems All other systems reviewed negative except as stated in HPI PMFSH - History History Provided By: Patient - Medical History Medical History: Medical History (Last Reviewed 03/20/18 @ 17:25 by ALEXANDR Zimmerman) Back pain Confusion Depression High cholesterol History of hysterectomy Hypertension - Surgical History Surgical History: Surgical History (Last Reviewed 03/20/18 @ 17:25 by ALEXANDR Zimmerman) Hx of cholecystectomy - Social History I have reviewed the patient's Social History: Yes - Tobacco History Second Hand Smoke Exposure: No Tobacco Use In Past 30 Days: No Smoking Status: Never smoker - Alcohol History How Often Do You Have a Drink Containing Alcohol: Never - Substance Use History Substance History: No History of Abuse - Travel History Recent Travel in the [place] Within the Last 8 Weeks: No Recent Travel Out of the Country Within the Last 8 Weeks: No - Immunization History Tetanus Immunization: Unsure Medications and Allergies Active Medications: Active Medications Al Hydrox/Mg Hydrox/Simethicone (Mag-Al Plus Susp Liq) 30 ml PO Q6H PRN PRN Reason: DYSPEPSIA Al Hydroxide/Mg Hydroxide (Milk Of Magnesia Liq) 30 ml PO Q12H PRN PRN Reason: Mild Constipation Clonidine HCl (Catapres) 0.1 mg PO Q6H PRN PRN Reason: sbp>160, dbp >90 Potassium Chloride 10 meq/ (Sodium Chloride) 1,005 mls @ 100 mls/hr IV.CONT .Q10H3M LAURA Lactulose (Lactulose Liq) 30 ml PO DAILY PRN PRN Reason: SEVERE CONSITIPATION Sennosides (Senokot) 17.2 mg PO Q12H PRN PRN Reason: Moderate Constipation Allergies Allergy/AdvReac Type Severity Reaction Status Date / Time penicillin G Allergy Intermediate Hives Verified 03/18/18 12:02 Home Medications Medication Instructions Recorded Confirmed Type losartan mg PO DAILY 03/18/18 History lovastatin mg PO DAILY 03/18/18 History lurasidone [Latuda] mg PO DAILY 03/18/18 History mirtazapine 03/18/18 History Exam Vital signs: Vital Signs 03/19/18 15:29 03/20/18 06:00 03/20/18 09:35 Temperature 98.9 F 99.2 F 100.4 F H Pulse Rate 108 H 116 H 125 H Respiratory Rate 16 18 24 Blood Pressure 159/85 H 143/85 H 144/81 H Pulse Oximetry 95 94 L 94 L Intake & Output 03/19/18 03/20/18 03/20/18 18:59 06:59 18:59 Weight 77.9 kg Other: Weight On Admission 77.9 kg Narrative: GENERAL: Well-developed, well-nourished, -[place] female, sitting in the chair in no apparent distress SKIN: Warm and dry. HEAD: Atraumatic. Normocephalic. EYES: Pupils equal and round. No scleral icterus. No injection or drainage. ENT: No nasal bleeding or discharge. Mucous membranes pink and moist. NECK: Trachea midline. No JVD. CARDIOVASCULAR: Regular rate and rhythm. RESPIRATORY: No accessory muscle use. Clear to auscultation. Breath sounds equal bilaterally. GASTROINTESTINAL: Abdomen obese, soft, non-tender, nondistended. Hepatic and splenic margins not palpable. MUSCULOSKELETAL: Extremities without clubbing, cyanosis, or edema. No obvious deformities. NEUROLOGICAL: Awake and alert. No obvious cranial nerve deficits. Generalized weakness, moving all 4 extremities. Normal but minimal speech. PSYCHIATRIC: Flat mood and affect; insight and judgment poor Results - Labs CBC & Chem 7: 03/20/18 10:15 03/20/18 10:15 Labs: Laboratory Results - last 24 hr 03/20/18 03/20/18 03/20/18 09:25 09:32 09:32 WBC 14.0 H RBC 4.99 Hgb 13.6 Hct 41.5 MCV 83.1 MCH 27.2 MCHC 32.7 RDW 14.8 Plt Count 470 H MPV 7.7 Neut % (Auto) 78.5 H Lymph % (Auto) 12.0 Sargent % (Auto) 8.9 H Eos % (Auto) 0.2 Baso % (Auto) 0.4 Neut # (Auto) 11.0 H Lymph # (Auto) 1.7 Sargent # (Auto) 1.3 H Eos # (Auto) 0.0 Baso # (Auto) 0.1 WBC Differential . Differential Comment Auto diff final Sodium 139 Potassium 3.1 L Chloride 99 Carbon Dioxide 23.8 Anion Gap 16 H BUN 24 H Creatinine 1.85 H Estimated GFR 33 L POC Glucose Random Glucose 122 H Lactic Acid Calcium 9.8 Cholesterol 161 Urine Color Yellow Urine Clarity Hazy H Urine pH 5.0 Ur Specific [place] 1.014 Urine Protein Negative Urine Glucose (UA) Negative Urine Ketones Negative Urine Occult Blood Small H Urine Nitrate Negative Urine Bilirubin Negative Urine Urobilinogen Less than 2 Ur Leukocyte Esterase Negative Urine RBC 1 Urine WBC 2 Ur Squamous Epith Cells 7 Urine Bacteria Occasional H Hyaline Casts 4 Urine Mucus Few H Micro UA Comment Culture not ind Ur Microscopic Review Not Reportable Urine Culture Comments Culture not ind 03/20/18 03/20/18 03/20/18 10:02 10:15 10:15 WBC 14.6 H RBC 4.69 Hgb 12.8 Hct 38.0 MCV 81.1 MCH 27.3 MCHC 33.6 RDW 14.7 Plt Count 405 MPV 7.4 Neut % (Auto) 82.6 H Lymph % (Auto) 8.5 L Sargent % (Auto) 8.2 H Eos % (Auto) 0.1 Baso % (Auto) 0.6 Neut # (Auto) 12.0 H Lymph # (Auto) 1.2 Sargent # (Auto) 1.2 H Eos # (Auto) 0.0 Baso # (Auto) 0.1 WBC Differential . Differential Comment Auto diff final Sodium Potassium Chloride Carbon Dioxide Anion Gap BUN Creatinine Estimated GFR POC Glucose 117 H Random Glucose Lactic Acid 3.0 H Calcium Cholesterol Urine Color Urine Clarity Urine pH Ur Specific [place] Urine Protein Urine Glucose (UA) Urine Ketones Urine Occult Blood Urine Nitrate Urine Bilirubin Urine Urobilinogen Ur Leukocyte Esterase Urine RBC Urine WBC Ur Squamous Epith Cells Urine Bacteria Hyaline Casts Urine Mucus Micro UA Comment Ur Microscopic Review Urine Culture Comments - Imaging Impressions Chest X-Ray 03/20/18 10:10 CONCLUSION: No acute findings. Elevated right hemidiaphragm similar to December 2016. Assessment and Plan - Assessment (1) Tachycardia Code(s): R00.0 - Tachycardia, unspecified Status: Acute (2) Hypertension Code(s): I10 - Essential (primary) hypertension Status: Acute (3) Bipolar disorder Code(s): F31.9 - Bipolar disorder, unspecified Status: Acute (4) Suicidal ideation Code(s): R45.851 - Suicidal ideations Status: Acute - Plan This is a 62-year-old, , female, lives with , with history of bipolar disorder, depression, anxiety, multiple psychiatric admissions presents to the emergency room under Monae act initiated by law enforcement for evaluation of suicidal ideation. Patient was admitted to psychiatric unit for psychiatric management. Medicine team was consulted for medical management. AK I/dehydration/hypokalemia/ elevate elevated CK Creatinine 1.54, improved from admission 2.09 on 03/18/2018 previously 1.93 on -Start IV fluid, half-normal saline with KCl -Replace potassium -Monitor electrolytes, BMP, CK Tachycardia/ Tachycardia, unspecified, Acute Likely related to elevated temperature versus dehydration -Sinus rhythm on 12-lead EKG -TSH 2.2, free T4 1.34 -Troponin less than 0.02 -Monitor heart rate Hypertension Essential (primary) hypertension, Acute -Add as needed clonidine for systolic blood pressure greater than 160 or diastolic blood pressure greater than 90 -Will consider adding metoprolol if continues to be elevated and increase the use of clonidine -Monitor blood pressure Elevated temperature/elevated WBC Chest x-ray with no acute findings -Send urine for urinalysis with C&S if indicated -Sent blood cultures -Start empiric treatment with azithromycin and ceftriaxone -Monitor CBC, BMP and vital signs Bipolar disorder/ Suicidal ideation/anxiety/depression Bipolar disorder, unspecified Acute Management by psychiatry team DVT prophylaxis: Patient ambulatory Patient can be transferred to medical psychiatric unit for management/medicine team will follow Code Status: Full code Discussed Condition With: Patient, nurse, Dr. Chávez
[2018-03-20 11:12] LABS: Alanine Aminotransferase 40 U/L (10-53); Albumin 3.9 g/dL (3.4-5.0); Alkaline Phosphatase 107 U/L (45-117); Anion Gap 10 meq/L (5-15); Aspartate Aminotransferase 63 U/L (15-37); Blood Urea Nitrogen 24 mg/dL (7-18); Calcium 9.8 mg/dL (8.5-10.1); Carbon Dioxide 26.7 meq/L (21.0-32.0); Chloride 102 meq/L (98-107); Glomerular Filtration Rate 41 mL/min (>89); Glucose,Random 95 mg/dL (74-106); Potassium 3.3 meq/L (3.5-5.1); Sodium 139 meq/L (136-145)
[2018-03-20] MEDS ORDERED: Bisacodyl 10 MG Supp RECTAL PRN (12:00)
[2018-03-20 12:15] LABS: Creatine Kinase 722 U/L (26-192)
[2018-03-20 12:27] LABS: CKMB Percent 1.2 % (0.0-4.0); Creatine Kinase MB 8.9 ng/mL (0.5-3.6)
[2018-03-20] MEDS ORDERED: Azithromycin Inj 500 MG in Sodium Chlor 0.9% Inj 250 ML IV.SIG SCH (13:00)
[2018-03-20] MEDS: Potassium Chloride Inj 10 MEQ in Sodium Chloride 0.45 % Inj 1,000 ML IV.CONT SCH (16:50)
[2018-03-20 17:21] LABS: Hemoglobin A1c 5.7 % (4.3-6.0)
[2018-03-20 17:52] LABS: Hemoglobin A1c 5.7 % (4.3-6.0)
[2018-03-20 18:04] LABS: Creatine Kinase 929 U/L (26-192)
[2018-03-20 18:17] LABS: Creatine Kinase MB 9.2 ng/mL (0.5-3.6)
--- NOTE | 2018-03-20 19:25 | P.HPPSY ---
Provisional Diagnosis Admission Date: March 19, 2018 10:48 Competence Certification of Person's Competence To Provide Express and Informed Consent I have personally examined Divya Mustafa, a person being served at [facility] on, March 20, 20181920. Express and informed consent means consent voluntarily given in writing, by a competent person, after sufficient explanation and disclosure of the subject matter involved to enable the person to make a knowing and willful decision without any element of force, fraud, deceit, duress, or other form of constraint or coercion. This person is 18 years of age or older, is not now known to be incompetent to consent to treatment with a guardian advocate, and does not have a health care surrogate or proxy currently making medical treatment decisions. I have found this person to be one of the following: [] Competent to provide express and informed consent, as defined above, for voluntary admission to this facility and is competent to provide express and informed consent for treatment. He/she has the consistent capacity to make well reasoned, willful, and knowing decisions concerning his or her medical or mental health treatment. The person fully and consistently understands the purpose of the admission for examination/placement and is fully capable of personally exercising all rights assured [place] [X] Incompetent to provide express and informed consent to voluntary admission, and this is incompetent to provide express and informed consent to treatment. The person must be transferred to involuntary status and a petition for a guardian advocate filed with the Circuit Court. [] Refusing to provide express and informed consent to voluntary admission but is competent to provide express and informed consent for treatment. The person must be discharged or transferred to involuntary status. Form shall be completed within 24 hours of a person's arrival at the receiving facility and filed in the clinical record of each person: 1. Admitted on a voluntary basis 2. Permitted to provide express and informed consent to his/her own treatment 3. Allowed to transfer from involuntary to voluntary status 4. Prior to permitting a person to consent to his or her own treatment after having been previously found incompetent to consent to treatment. History of Present Illness Capacity: Lacks capacity Chief Complaint: psychosis History of Present Illness: Patient is a 62-year-old female presenting here for psychosis and suicidal ideation. Patient started out in the psychiatric unit and then showed signs of sepsis with a fever and tachycardia and was transferred to the medical/surgical unit. Patient is confused and says she feels fearful. She is alert and oriented x2. Per record she had suicidal ideation however patient denies suicidal or homicidal ideation intent or plan for this visit. She is complaining of visual hallucinations of seeing pictures on the wall. She has nonspecific paranoia. She does deny auditory visual hallucinations. Pharmacy was called and current medications include Latuda 80 mg daily, Remeron 15 mg p.o. nightly, BuSpar 15 mg p.o. 3 times daily, Cogentin 1 mg daily. Past psych: Schizophrenia, denies history of suicide attempts. Unclear if she has history of admissions. Past medical: See chart Past Famhx: Unsure Past Social: Patient is . She has 2 sons live in [place]. She denies any substance use. - Inpatient Certification I certify that the inpatient services were ordered in accordance with Medicare regulations governing the order. This includes certification that hospital inpatient services are reasonable and necessary and in the case of services not specified as inpatient-only under 42 CFR 419.22(n), that they are appropriately provided as inpatient services in accordance to with the 2-midnight benchmark under 43 CFR 412.3(e) I certify that inpatient psychiatric hospital services are medically necessary. Evaluation and treatment and/or diagnostic testing are expected to improve the patient's condition. The patient needs on a daily basis, active treatment furnished directly by or requiring the supervision of inpatient psychiatric facility personnel. Estimated Total Length of Stay (Days): 8 Plans for Post Hospital Care: Home [facility] - History History Provided By: Patient - Medical History Medical History: Medical History (Last Reviewed 03/20/18 @ 19:23 by Americo Blake DO) Back pain Confusion Depression High cholesterol History of hysterectomy Hypertension - Surgical History Surgical History: Surgical History (Last Reviewed 03/20/18 @ 19:23 by Americo Blake DO) Hx of cholecystectomy - Tobacco History Second Hand Smoke Exposure: No Tobacco Use In Past 30 Days: No Smoking Status: Never smoker - Alcohol History How Often Do You Have a Drink Containing Alcohol: Never - Substance Use History Substance History: No History of Abuse - Travel History Recent Travel in the [place] Within the Last 8 Weeks: No Recent Travel Out of the Country Within the Last 8 Weeks: No - Immunization History Tetanus Immunization: Unsure Medications and Allergies Active Medications: Active Medications Al Hydrox/Mg Hydrox/Simethicone (Mag-Al Plus Susp Liq) 30 ml PO Q6H PRN PRN Reason: DYSPEPSIA Bisacodyl (Dulcolax Supp) 10 mg RECTAL DAILY PRN PRN Reason: SEVERE CONSITIPATION Clonidine HCl (Catapres) 0.1 mg PO Q6H PRN PRN Reason: sbp>160, dbp >90 Potassium Chloride 10 meq/ (Sodium Chloride) 1,005 mls @ 100 mls/hr IV.CONT .Q10H3M LAURA Last Admin: 03/20/18 16:50 Dose: 100 mls/hr Azithromycin 500 mg/ Sodium (Chloride) 250 mls @ 250 mls/hr IV.SIG Q24H LAURA Ceftriaxone Sodium 1,000 mg/ (Sodium Chloride) 100 mls @ 200 mls/hr IV.SIG Q24H LAURA Lactulose (Lactulose Liq) 30 ml PO DAILY PRN PRN Reason: SEVERE CONSITIPATION Senna/Docusate Sodium (Tracey-Colace) 1 tab PO BID LAURA Sennosides (Senokot) 17.2 mg PO Q12H PRN PRN Reason: Moderate Constipation Allergies Allergy/AdvReac Type Severity Reaction Status Date / Time penicillin G Allergy Intermediate Hives Verified 03/18/18 12:02 Home Medications Medication Instructions Recorded Confirmed Type losartan mg PO DAILY 03/18/18 History lovastatin mg PO DAILY 03/18/18 History lurasidone [Latuda] mg PO DAILY 03/18/18 History mirtazapine 03/18/18 History Results - Labs CBC & Chem 7: 03/20/18 10:15 03/20/18 10:15 Labs: Laboratory Results - last 24 hr 03/20/18 03/20/18 03/20/18 09:25 09:32 09:32 WBC 14.0 H RBC 4.99 Hgb 13.6 Hct 41.5 MCV 83.1 MCH 27.2 MCHC 32.7 RDW 14.8 Plt Count 470 H MPV 7.7 Neut % (Auto) 78.5 H Lymph % (Auto) 12.0 [place] % (Auto) 8.9 H Eos % (Auto) 0.2 Baso % (Auto) 0.4 Neut # (Auto) 11.0 H Lymph # (Auto) 1.7 [place] # (Auto) 1.3 H Eos # (Auto) 0.0 Baso # (Auto) 0.1 WBC Differential . Differential Comment Auto diff final Sodium 139 Potassium 3.1 L Chloride 99 Carbon Dioxide 23.8 Anion Gap 16 H BUN 24 H Creatinine 1.85 H Estimated GFR 33 L POC Glucose Random Glucose 122 H Lactic Acid Calcium 9.8 Total Bilirubin AST ALT Alkaline Phosphatase Total Creatine Kinase CK-MB (CK-2) CK-MB (CK-2) % Troponin I Total Protein Albumin Triglycerides 123 Cholesterol 161 LDL Cholesterol, Calc 89 HDL Cholesterol 47.1 Cholesterol/HDL Ratio 3.41 Vitamin B12 372 TSH Free T4 Urine Color Yellow Urine Clarity Hazy H Urine pH 5.0 Ur Specific [place] 1.014 Urine Protein Negative Urine Glucose (UA) Negative Urine Ketones Negative Urine Occult Blood Small H Urine Nitrate Negative Urine Bilirubin Negative Urine Urobilinogen Less than 2 Ur Leukocyte Esterase Negative Urine RBC 1 Urine WBC 2 Ur Squamous Epith Cells 7 Urine Bacteria Occasional H Hyaline Casts 4 Urine Mucus Few H Micro UA Comment Culture not ind Ur Microscopic Review Not Reportable Urine Culture Comments Culture not ind 03/20/18 03/20/18 03/20/18 10:02 10:15 10:15 WBC 14.6 H RBC 4.69 Hgb 12.8 Hct 38.0 MCV 81.1 MCH 27.3 MCHC 33.6 RDW 14.7 Plt Count 405 MPV 7.4 Neut % (Auto) 82.6 H Lymph % (Auto) 8.5 L [place] % (Auto) 8.2 H Eos % (Auto) 0.1 Baso % (Auto) 0.6 Neut # (Auto) 12.0 H Lymph # (Auto) 1.2 [place] # (Auto) 1.2 H Eos # (Auto) 0.0 Baso # (Auto) 0.1 WBC Differential . Differential Comment Auto diff final Sodium Potassium Chloride Carbon Dioxide Anion Gap BUN Creatinine Estimated GFR POC Glucose 117 H Random Glucose Lactic Acid 3.0 H Calcium Total Bilirubin AST ALT Alkaline Phosphatase Total Creatine Kinase CK-MB (CK-2) CK-MB (CK-2) % Troponin I Total Protein Albumin Triglycerides Cholesterol LDL Cholesterol, Calc HDL Cholesterol Cholesterol/HDL Ratio Vitamin B12 TSH Free T4 Urine Color Urine Clarity Urine pH Ur Specific [place] Urine Protein Urine Glucose (UA) Urine Ketones Urine Occult Blood Urine Nitrate Urine Bilirubin Urine Urobilinogen Ur Leukocyte Esterase Urine RBC Urine WBC Ur Squamous Epith Cells Urine Bacteria Hyaline Casts Urine Mucus Micro UA Comment Ur Microscopic Review Urine Culture Comments 03/20/18 03/20/18 03/20/18 10:15 10:15 10:15 WBC RBC Hgb Hct MCV MCH MCHC RDW Plt Count MPV Neut % (Auto) Lymph % (Auto) [place] % (Auto) Eos % (Auto) Baso % (Auto) Neut # (Auto) Lymph # (Auto) [place] # (Auto) Eos # (Auto) Baso # (Auto) WBC Differential Differential Comment Sodium 139 Potassium 3.3 L Chloride 102 Carbon Dioxide 26.7 Anion Gap 10 BUN 24 H Creatinine 1.54 H Estimated GFR 41 L POC Glucose Random Glucose 95 Lactic Acid Calcium 9.8 Total Bilirubin 0.4 AST 63 H ALT 40 Alkaline Phosphatase 107 Total Creatine Kinase 722 H CK-MB (CK-2) 8.9 H CK-MB (CK-2) % 1.2 Troponin I Less than 0.02 L Total Protein 8.0 D Albumin 3.9 D Triglycerides Cholesterol LDL Cholesterol, Calc HDL Cholesterol Cholesterol/HDL Ratio Vitamin B12 TSH Free T4 1.34 Urine Color Urine Clarity Urine pH Ur Specific [place] Urine Protein Urine Glucose (UA) Urine Ketones Urine Occult Blood Urine Nitrate Urine Bilirubin Urine Urobilinogen Ur Leukocyte Esterase Urine RBC Urine WBC Ur Squamous Epith Cells Urine Bacteria Hyaline Casts Urine Mucus Micro UA Comment Ur Microscopic Review Urine Culture Comments 03/20/18 03/20/18 03/20/18 10:15 13:51 17:18 WBC RBC Hgb Hct MCV MCH MCHC RDW Plt Count MPV Neut % (Auto) Lymph % (Auto) [place] % (Auto) Eos % (Auto) Baso % (Auto) Neut # (Auto) Lymph # (Auto) [place] # (Auto) Eos # (Auto) Baso # (Auto) WBC Differential Differential Comment Sodium Potassium Chloride Carbon Dioxide Anion Gap BUN Creatinine Estimated GFR POC Glucose Random Glucose Lactic Acid 2.0 Calcium Total Bilirubin AST ALT Alkaline Phosphatase Total Creatine Kinase 929 H CK-MB (CK-2) 9.2 H CK-MB (CK-2) % 1.0 Troponin I Less than 0.02 L Total Protein Albumin Triglycerides Cholesterol LDL Cholesterol, Calc HDL Cholesterol Cholesterol/HDL Ratio Vitamin B12 TSH 2.200 Free T4 Urine Color Urine Clarity Urine pH Ur Specific [place] Urine Protein Urine Glucose (UA) Urine Ketones Urine Occult Blood Urine Nitrate Urine Bilirubin Urine Urobilinogen Ur Leukocyte Esterase Urine RBC Urine WBC Ur Squamous Epith Cells Urine Bacteria Hyaline Casts Urine Mucus Micro UA Comment Ur Microscopic Review Urine Culture Comments - Imaging Impressions Chest X-Ray 03/20/18 10:10 CONCLUSION: No acute findings. Elevated right hemidiaphragm similar to December 2016. Exam Vital signs: Vital Signs 03/20/18 06:00 03/20/18 09:35 03/20/18 17:47 Temperature 99.2 F 100.4 F H 98.7 F Pulse Rate 116 H 125 H 102 H Respiratory Rate 18 24 16 Blood Pressure 143/85 H 144/81 H 157/82 H Pulse Oximetry 94 L 94 L 95 Intake & Output 03/20/18 03/20/18 03/21/18 06:59 18:59 06:59 Intake Total 960 / 960 Balance 960 / 960 Intake: Oral 960 / 960 Mental Status Examination Appearance: Appropriate Consciousness: Clouded Orientation: Person, Place Motor Activity: Normal gait Speech: Hesitant, Slow Language: Adequate Fund of Knowledge: Inadequate Attention and Concentration: Easily distracted Memory: Impaired Mood: Anxious Affect: Appropriate Thought Process & Associations: Circumstantial, Disorganized Thought Content: Bizarre thinking Hallucination Type: Visual Delusion Type: None Suicidal Ideation: No Suicidal Plan: No Suicidal Intention: No Homicidal Ideation: No Homicidal Plan: No Homicidal Intention: No Insight: Poor Judgment: Poor Assessment and Plan - Assessment (1) Schizoaffective disorder, unspecified Code(s): F25.9 - Schizoaffective disorder, unspecified Status: Acute - Plan Plan: Estimated LOS: [] days Continue medical treatment as indicated. We will restart her psychiatric medications. I spoke to her Kleber and gave him an update and obtain consent for medication. Given patient's status she will be made involuntary Justification for Continued Inpatient Stay: Patient would decompensate in a less restrictive setting
[2018-03-20] MEDS: Azithromycin Inj 500 MG in Sodium Chlor 0.9% Inj 250 ML IV.SIG SCH (19:27)
[2018-03-20] MEDS: Mirtazapine 15 MG Tablet PO SCH ×2 (21:03→21:21)
[2018-03-20] MEDS: Senna/Docusate Sodium 8.6/50 MG Tablet PO SCH (21:07)
--- NOTE | 2018-03-20 21:47 | P.PN ---
Subjective Interval history: NOT SEEN Physical Exam Vital signs: Vital Signs 03/20/18 06:00 03/20/18 09:35 03/20/18 17:47 Temperature 99.2 F 100.4 F H 98.7 F Pulse Rate 116 H 125 H 102 H Respiratory Rate 18 24 16 Blood Pressure 143/85 H 144/81 H 157/82 H Pulse Oximetry 94 L 94 L 95 Intake & Output 03/20/18 03/20/18 03/21/18 06:59 18:59 06:59 Intake Total 960 / 960 Balance 960 / 960 Intake: Oral 960 / 960 Narrative: GENERAL: Well-developed, well-nourished, -[place] female, sitting in the chair in no apparent distress SKIN: Warm and dry. CARDIOVASCULAR: Regular rate and rhythm. RESPIRATORY: No accessory muscle use. Clear to auscultation. Breath sounds equal bilaterally. GASTROINTESTINAL: Abdomen obese, soft, non-tender, nondistended. MUSCULOSKELETAL: Extremities without clubbing, cyanosis, or edema. No obvious deformities. NEUROLOGICAL: Awake and alert. No obvious cranial nerve deficits. Generalized weakness, moving all 4 extremities. Normal but minimal speech. PSYCHIATRIC: Flat mood and affect; insight and judgment poor Results - Labs CBC & Chem 7: 03/20/18 10:15 03/20/18 10:15 Laboratory Results - last 24 hr 03/20/18 03/20/18 03/20/18 09:25 09:32 09:32 WBC 14.0 H RBC 4.99 Hgb 13.6 Hct 41.5 MCV 83.1 MCH 27.2 MCHC 32.7 RDW 14.8 Plt Count 470 H MPV 7.7 Neut % (Auto) 78.5 H Lymph % (Auto) 12.0 [place] % (Auto) 8.9 H Eos % (Auto) 0.2 Baso % (Auto) 0.4 Neut # (Auto) 11.0 H Lymph # (Auto) 1.7 [place] # (Auto) 1.3 H Eos # (Auto) 0.0 Baso # (Auto) 0.1 WBC Differential . Differential Comment Auto diff final Sodium 139 Potassium 3.1 L Chloride 99 Carbon Dioxide 23.8 Anion Gap 16 H BUN 24 H Creatinine 1.85 H Estimated GFR 33 L POC Glucose Random Glucose 122 H Hemoglobin A1c Lactic Acid Calcium 9.8 Total Bilirubin AST ALT Alkaline Phosphatase Total Creatine Kinase CK-MB (CK-2) CK-MB (CK-2) % Troponin I Total Protein Albumin Triglycerides 123 Cholesterol 161 LDL Cholesterol, Calc 89 HDL Cholesterol 47.1 Cholesterol/HDL Ratio 3.41 Vitamin B12 372 TSH Free T4 Urine Color Yellow Urine Clarity Hazy H Urine pH 5.0 Ur Specific [place] 1.014 Urine Protein Negative Urine Glucose (UA) Negative Urine Ketones Negative Urine Occult Blood Small H Urine Nitrate Negative Urine Bilirubin Negative Urine Urobilinogen Less than 2 Ur Leukocyte Esterase Negative Urine RBC 1 Urine WBC 2 Ur Squamous Epith Cells 7 Urine Bacteria Occasional H Hyaline Casts 4 Urine Mucus Few H Micro UA Comment Culture not ind Ur Microscopic Review Not Reportable Urine Culture Comments Culture not ind 03/20/18 03/20/18 03/20/18 09:32 10:02 10:15 WBC 14.6 H RBC 4.69 Hgb 12.8 Hct 38.0 MCV 81.1 MCH 27.3 MCHC 33.6 RDW 14.7 Plt Count 405 MPV 7.4 Neut % (Auto) 82.6 H Lymph % (Auto) 8.5 L [place] % (Auto) 8.2 H Eos % (Auto) 0.1 Baso % (Auto) 0.6 Neut # (Auto) 12.0 H Lymph # (Auto) 1.2 [place] # (Auto) 1.2 H Eos # (Auto) 0.0 Baso # (Auto) 0.1 WBC Differential . Differential Comment Auto diff final Sodium Potassium Chloride Carbon Dioxide Anion Gap BUN Creatinine Estimated GFR POC Glucose 117 H Random Glucose Hemoglobin A1c 5.7 Lactic Acid Calcium Total Bilirubin AST ALT Alkaline Phosphatase Total Creatine Kinase CK-MB (CK-2) CK-MB (CK-2) % Troponin I Total Protein Albumin Triglycerides Cholesterol LDL Cholesterol, Calc HDL Cholesterol Cholesterol/HDL Ratio Vitamin B12 TSH Free T4 Urine Color Urine Clarity Urine pH Ur Specific [place] Urine Protein Urine Glucose (UA) Urine Ketones Urine Occult Blood Urine Nitrate Urine Bilirubin Urine Urobilinogen Ur Leukocyte Esterase Urine RBC Urine WBC Ur Squamous Epith Cells Urine Bacteria Hyaline Casts Urine Mucus Micro UA Comment Ur Microscopic Review Urine Culture Comments 03/20/18 03/20/18 03/20/18 10:15 10:15 10:15 WBC RBC Hgb Hct MCV MCH MCHC RDW Plt Count MPV Neut % (Auto) Lymph % (Auto) [place] % (Auto) Eos % (Auto) Baso % (Auto) Neut # (Auto) Lymph # (Auto) [place] # (Auto) Eos # (Auto) Baso # (Auto) WBC Differential Differential Comment Sodium 139 Potassium 3.3 L Chloride 102 Carbon Dioxide 26.7 Anion Gap 10 BUN 24 H Creatinine 1.54 H Estimated GFR 41 L POC Glucose Random Glucose 95 Hemoglobin A1c Lactic Acid 3.0 H Calcium 9.8 Total Bilirubin 0.4 AST 63 H ALT 40 Alkaline Phosphatase 107 Total Creatine Kinase 722 H CK-MB (CK-2) 8.9 H CK-MB (CK-2) % 1.2 Troponin I Less than 0.02 L Total Protein 8.0 D Albumin 3.9 D Triglycerides Cholesterol LDL Cholesterol, Calc HDL Cholesterol Cholesterol/HDL Ratio Vitamin B12 TSH Free T4 Urine Color Urine Clarity Urine pH Ur Specific [place] Urine Protein Urine Glucose (UA) Urine Ketones Urine Occult Blood Urine Nitrate Urine Bilirubin Urine Urobilinogen Ur Leukocyte Esterase Urine RBC Urine WBC Ur Squamous Epith Cells Urine Bacteria Hyaline Casts Urine Mucus Micro UA Comment Ur Microscopic Review Urine Culture Comments 03/20/18 03/20/18 03/20/18 10:15 10:15 10:15 WBC RBC Hgb Hct MCV MCH MCHC RDW Plt Count MPV Neut % (Auto) Lymph % (Auto) [place] % (Auto) Eos % (Auto) Baso % (Auto) Neut # (Auto) Lymph # (Auto) [place] # (Auto) Eos # (Auto) Baso # (Auto) WBC Differential Differential Comment Sodium Potassium Chloride Carbon Dioxide Anion Gap BUN Creatinine Estimated GFR POC Glucose Random Glucose Hemoglobin A1c 5.7 Lactic Acid Calcium Total Bilirubin AST ALT Alkaline Phosphatase Total Creatine Kinase CK-MB (CK-2) CK-MB (CK-2) % Troponin I Total Protein Albumin Triglycerides Cholesterol LDL Cholesterol, Calc HDL Cholesterol Cholesterol/HDL Ratio Vitamin B12 TSH 2.200 Free T4 1.34 Urine Color Urine Clarity Urine pH Ur Specific [place] Urine Protein Urine Glucose (UA) Urine Ketones Urine Occult Blood Urine Nitrate Urine Bilirubin Urine Urobilinogen Ur Leukocyte Esterase Urine RBC Urine WBC Ur Squamous Epith Cells Urine Bacteria Hyaline Casts Urine Mucus Micro UA Comment Ur Microscopic Review Urine Culture Comments 03/20/18 03/20/18 13:51 17:18 WBC RBC Hgb Hct MCV MCH MCHC RDW Plt Count MPV Neut % (Auto) Lymph % (Auto) [place] % (Auto) Eos % (Auto) Baso % (Auto) Neut # (Auto) Lymph # (Auto) [place] # (Auto) Eos # (Auto) Baso # (Auto) WBC Differential Differential Comment Sodium Potassium Chloride Carbon Dioxide Anion Gap BUN Creatinine Estimated GFR POC Glucose Random Glucose Hemoglobin A1c Lactic Acid 2.0 Calcium Total Bilirubin AST ALT Alkaline Phosphatase Total Creatine Kinase 929 H CK-MB (CK-2) 9.2 H CK-MB (CK-2) % 1.0 Troponin I Less than 0.02 L Total Protein Albumin Triglycerides Cholesterol LDL Cholesterol, Calc HDL Cholesterol Cholesterol/HDL Ratio Vitamin B12 TSH Free T4 Urine Color Urine Clarity Urine pH Ur Specific [place] Urine Protein Urine Glucose (UA) Urine Ketones Urine Occult Blood Urine Nitrate Urine Bilirubin Urine Urobilinogen Ur Leukocyte Esterase Urine RBC Urine WBC Ur Squamous Epith Cells Urine Bacteria Hyaline Casts Urine Mucus Micro UA Comment Ur Microscopic Review Urine Culture Comments - Imaging Impressions Chest X-Ray 03/20/18 10:10 CONCLUSION: No acute findings. Elevated right hemidiaphragm similar to December 2016. Assessment and Plan - Assessment (1) Tachycardia Code(s): R00.0 - Tachycardia, unspecified Status: Acute (2) Hypertension Code(s): I10 - Essential (primary) hypertension Status: Acute (3) Bipolar disorder Code(s): F31.9 - Bipolar disorder, unspecified Status: Acute (4) Suicidal ideation Code(s): R45.851 - Suicidal ideations Status: Acute - Plan This is a 62-year-old, , female, lives with , with history of bipolar disorder, depression, anxiety, multiple psychiatric admissions presents to the emergency room under [place] act initiated by law enforcement for evaluation of suicidal ideation. Patient was admitted to psychiatric unit for psychiatric management. Medicine team was consulted for medical management. Dehydration/hypokalemia/ elevate elevated CK/CKD stage 3 Creatinine 1.54, improved from admission 2.09 on 03/18/2018 previously 1.93 on -Start IV fluid, half-normal saline with KCl -Replace potassium -Monitor electrolytes, BMP, CK Tachycardia/ Tachycardia, unspecified, Acute Likely related to elevated temperature versus dehydration -Sinus rhythm on 12-lead EKG -TSH 2.2, free T4 1.34 -Troponin less than 0.02 -Monitor heart rate Hypertension Essential (primary) hypertension, Acute -Add as needed clonidine for systolic blood pressure greater than 160 or diastolic blood pressure greater than 90 -Will consider adding metoprolol if continues to be elevated and increase the use of clonidine -Monitor blood pressure Elevated temperature/elevated WBC/SIRS Chest x-ray with no acute findings -Send urine for urinalysis with C&S if indicated -Sent blood cultures -Start empiric treatment with azithromycin and ceftriaxone -Monitor CBC, BMP and vital signs Bipolar disorder/ Suicidal ideation/anxiety/depression Bipolar disorder, unspecified Acute Management by psychiatry team DVT prophylaxis: Patient ambulatory
[2018-03-21] MEDS: Potassium Chloride Inj 10 MEQ in Sodium Chloride 0.45 % Inj 1,000 ML IV.CONT SCH ×5 (02:52→17:45)
[2018-03-21] MEDS ORDERED: Haloperidol Inj 5 MG/ML Ampul ONE (04:06)
[2018-03-21] MEDS ORDERED: Haloperidol Inj 5 MG/ML Ampul IM ONE (04:30)
[2018-03-21 07:19] LABS: Baso # (Auto) 0.1 th/mm3 (0.0-0.2); Baso % (Auto) 0.7 % (0.0-2.0); Eos # (Auto) 0.1 th/mm3 (0.0-0.4); Eos % (Auto) 0.7 % (0.0-4.0); Hematocrit 36.1 % (35.0-46.0); Hemoglobin 12.1 gm/dL (11.6-15.3); Lymph # (Auto) 2.3 th/mm3 (1.0-4.8); Lymph % (Auto) 20.1 % (9.0-44.0); Mean Corpuscular HGB Conc 33.4 % (32.0-36.0); Mean Corpuscular Hemoglobin 27.3 pg (27.0-34.0); Mean Corpuscular Volume 81.8 fL (80.0-100.0); Mean Platelet Volume 7.4 fL (7.0-11.0); Mono # (Auto) 0.8 th/mm3 (0.0-0.9); Mono % (Auto) 7.1 % (0.0-8.0); Neut # (Auto) 8.1 th/mm3 (1.8-7.7); Neut % (Auto) 71.4 % (16.0-70.0); Platelet Count 367 th/mm3 (150-450); Red Blood Count 4.41 mil/mm3 (4.00-5.30); Red Cell Distribution Width 14.7 % (11.6-17.2); White Blood Count 11.4 th/mm3 (4.0-11.0)
[2018-03-21 07:41] LABS: Alanine Aminotransferase 42 U/L (10-53); Albumin 3.6 g/dL (3.4-5.0); Anion Gap 6 meq/L (5-15); Aspartate Aminotransferase 69 U/L (15-37); Blood Urea Nitrogen 22 mg/dL (7-18); Calcium 8.7 mg/dL (8.5-10.1); Carbon Dioxide 30.2 meq/L (21.0-32.0); Chloride 106 meq/L (98-107); Glomerular Filtration Rate 64 mL/min (>89); Glucose,Random 91 mg/dL (74-106); Magnesium 2.2 mg/dL (1.5-2.5); Phosphorus 3.3 mg/dL (2.5-4.9); Potassium 3.4 meq/L (3.5-5.1); Sodium 142 meq/L (136-145)
[2018-03-21 07:59] LABS: Alkaline Phosphatase 91 U/L (45-117); Creatine Kinase 1090 U/L (26-192)
[2018-03-21 08:03] LABS: Total Protein 7.6 g/dL (6.4-8.2)
[2018-03-21] MEDS: Senna/Docusate Sodium 8.6/50 MG Tablet PO SCH ×2 (08:06→20:29)
[2018-03-21] MEDS: Lurasidone 80 MG Tablet PO SCH (08:07)
[2018-03-21 08:17] LABS: CKMB Percent 0.7 % (0.0-4.0); Creatine Kinase MB 7.4 ng/mL (0.5-3.6)
--- NOTE | 2018-03-21 10:26 | P.PN ---
Subjective Interval history: Nursing denies any deterioration since last night. Nursing reports that the patient is pretty mobile, walks around, denies any prolonged lying in bed. Patient herself says a high when I greet her. Physical Exam Vital signs: Vital Signs 03/20/18 17:47 03/21/18 05:46 Temperature 98.7 F 98.3 F Pulse Rate 102 H 80 Respiratory Rate 16 18 Blood Pressure 157/82 H 118/58 L Pulse Oximetry 95 95 Intake & Output 03/20/18 03/21/18 03/21/18 18:59 06:59 18:59 Intake Total 960 / 960 1245 / 1245 Balance 960 / 960 1245 / 1245 Intake: IV 1005 / 1005 KCl Inj 10 MEQ In 1/2 Normal 1005 / 1005 Saline Inj 1,000 ML @ 100 mls/ hr IV.CONT .Q10H3M [facility] Rx#: [id number] Oral 960 / 960 240 / 240 Other: # Voids 0 Narrative: Sitting up in chair, awake, alert, no acute distress Unlabored breathing Heart sounds regular rate and rhythm Clear lungs bilaterally Results - Labs CBC & Chem 7: 03/21/18 06:50 03/21/18 06:50 Laboratory Results - last 24 hr 03/20/18 03/20/18 03/20/18 09:32 09:32 10:15 WBC 14.6 H RBC 4.69 Hgb 12.8 Hct 38.0 MCV 81.1 MCH 27.3 MCHC 33.6 RDW 14.7 Plt Count 405 MPV 7.4 Neut % (Auto) 82.6 H Lymph % (Auto) 8.5 L Crosby % (Auto) 8.2 H Eos % (Auto) 0.1 Baso % (Auto) 0.6 Neut # (Auto) 12.0 H Lymph # (Auto) 1.2 Crosby # (Auto) 1.2 H Eos # (Auto) 0.0 Baso # (Auto) 0.1 WBC Differential . Differential Comment Auto diff final Sodium Potassium Chloride Carbon Dioxide Anion Gap BUN Creatinine Estimated GFR Random Glucose Hemoglobin A1c 5.7 Lactic Acid Calcium Phosphorus Magnesium Total Bilirubin AST ALT Alkaline Phosphatase Total Creatine Kinase CK-MB (CK-2) CK-MB (CK-2) % Troponin I Total Protein Albumin Triglycerides 123 LDL Cholesterol, Calc 89 HDL Cholesterol 47.1 Cholesterol/HDL Ratio 3.41 Vitamin B12 372 TSH Free T4 03/20/18 03/20/18 03/20/18 10:15 10:15 10:15 WBC RBC Hgb Hct MCV MCH MCHC RDW Plt Count MPV Neut % (Auto) Lymph % (Auto) Crosby % (Auto) Eos % (Auto) Baso % (Auto) Neut # (Auto) Lymph # (Auto) Cros[place] # (Auto) Eos # (Auto) Baso # (Auto) WBC Differential Differential Comment Sodium 139 Potassium 3.3 L Chloride 102 Carbon Dioxide 26.7 Anion Gap 10 BUN 24 H Creatinine 1.54 H Estimated GFR 41 L Random Glucose 95 Hemoglobin A1c Lactic Acid 3.0 H Calcium 9.8 Phosphorus Magnesium Total Bilirubin 0.4 AST 63 H ALT 40 Alkaline Phosphatase 107 Total Creatine Kinase 722 H CK-MB (CK-2) 8.9 H CK-MB (CK-2) % 1.2 Troponin I Less than 0.02 L Total Protein 8.0 D Albumin 3.9 D Triglycerides LDL Cholesterol, Calc HDL Cholesterol Cholesterol/HDL Ratio Vitamin B12 TSH Free T4 03/20/18 03/20/18 03/20/18 10:15 10:15 10:15 WBC RBC Hgb Hct MCV MCH MCHC RDW Plt Count MPV Neut % (Auto) Lymph % (Auto) Crosby % (Auto) Eos % (Auto) Baso % (Auto) Neut # (Auto) Lymph # (Auto) Crosby # (Auto) Eos # (Auto) Baso # (Auto) WBC Differential Differential Comment Sodium Potassium Chloride Carbon Dioxide Anion Gap BUN Creatinine Estimated GFR Random Glucose Hemoglobin A1c 5.7 Lactic Acid Calcium Phosphorus Magnesium Total Bilirubin AST ALT Alkaline Phosphatase Total Creatine Kinase CK-MB (CK-2) CK-MB (CK-2) % Troponin I Total Protein Albumin Triglycerides LDL Cholesterol, Calc HDL Cholesterol Cholesterol/HDL Ratio Vitamin B12 TSH 2.200 Free T4 1.34 03/20/18 03/20/18 03/21/18 13:51 17:18 06:50 WBC 11.4 H RBC 4.41 Hgb 12.1 Hct 36.1 MCV 81.8 MCH 27.3 MCHC 33.4 RDW 14.7 Plt Count 367 MPV 7.4 Neut % (Auto) 71.4 H Lymph % (Auto) 20.1 Crosby % (Auto) 7.1 Eos % (Auto) 0.7 Baso % (Auto) 0.7 Neut # (Auto) 8.1 H Lymph # (Auto) 2.3 Crosby # (Auto) 0.8 Eos # (Auto) 0.1 Baso # (Auto) 0.1 WBC Differential . Differential Comment Auto diff final Sodium Potassium Chloride Carbon Dioxide Anion Gap BUN Creatinine Estimated GFR Random Glucose Hemoglobin A1c Lactic Acid 2.0 Calcium Phosphorus Magnesium Total Bilirubin AST ALT Alkaline Phosphatase Total Creatine Kinase 929 H CK-MB (CK-2) 9.2 H CK-MB (CK-2) % 1.0 Troponin I Less than 0.02 L Total Protein Albumin Triglycerides LDL Cholesterol, Calc HDL Cholesterol Cholesterol/HDL Ratio Vitamin B12 TSH Free T4 03/21/18 06:50 WBC RBC Hgb Hct MCV MCH MCHC RDW Plt Count MPV Neut % (Auto) Lymph % (Auto) Crosby % (Auto) Eos % (Auto) Baso % (Auto) Neut # (Auto) Lymph # (Auto) Cros[place] # (Auto) Eos # (Auto) Baso # (Auto) WBC Differential Differential Comment Sodium 142 Potassium 3.4 L Chloride 106 Carbon Dioxide 30.2 Anion Gap 6 BUN 22 H Creatinine 1.05 H Estimated GFR 64 L Random Glucose 91 Hemoglobin A1c Lactic Acid Calcium 8.7 D Phosphorus 3.3 Magnesium 2.2 Total Bilirubin 0.3 AST 69 H ALT 42 Alkaline Phosphatase 91 Total Creatine Kinase 1090 H CK-MB (CK-2) 7.4 H CK-MB (CK-2) % 0.7 Troponin I Total Protein 7.6 Albumin 3.6 Triglycerides LDL Cholesterol, Calc HDL Cholesterol Cholesterol/HDL Ratio Vitamin B12 TSH Free T4 - Imaging Impressions Chest X-Ray 03/20/18 10:10 CONCLUSION: No acute findings. Elevated right hemidiaphragm similar to December 2016. Assessment and Plan - Assessment (1) Tachycardia Code(s): R00.0 - Tachycardia, unspecified Status: Acute (2) Hypertension Code(s): I10 - Essential (primary) hypertension Status: Acute (3) Bipolar disorder Code(s): F31.9 - Bipolar disorder, unspecified Status: Acute (4) Suicidal ideation Code(s): R45.851 - Suicidal ideations Status: Acute - Plan This is a 62-year-old, , female, lives with , with history of bipolar disorder, depression, anxiety, multiple psychiatric admissions presents to the emergency room under Monae act initiated by law enforcement for evaluation of suicidal ideation. Patient was admitted to psychiatric unit for psychiatric management. Medicine team was consulted for medical management namely of dehydration, acute kidney injury. Was started on antibiotics for possible infection (source not identified) with leukocytosis. Leukocytosis and volume status has improved, however creatinine kinase levels have been climbing. Dehydration Dehydration is near resolution with IV fluids Hypokalemia is also improving with IV fluids Elevated creatinine kinase/myositis Has been increasing over the last few days, no clinical history of traumatic injury or prolonged bedrest. Etiologies being entertained are medication side effects vs polymyositis. -Possible medications that could be culprits per pharmacy advice include azithromycin, BuSpar, Latuda, Remeron -Trend CK, ordering CRP and sed rate, continue IVFs sinus Tachycardia/ -2/2 dehydration Hypertension -starting amlodipine Elevated temperature/elevated WBC/SIRS Chest x-ray with no acute findings -UA is negative, chest x-ray was negative, I will obtain a pro-calcitonin and if negative I will stop azithromycin and Rocephin Rebeca since there has been no recurrence of fever and white count has stabilized Bipolar disorder/ Suicidal ideation/anxiety/depression Bipolar disorder, unspecified Acute Management by psychiatry team DVT prophylaxis: Patient ambulatory
--- NOTE | 2018-03-21 12:39 | P.CONPSY ---
Provisional Diagnosis Admission Date: March 19, 2018 10:48 [place] I.: 1. Schizoaffective disorder, unspecified type Rule out contribution from delirium due to [facility] [place] II.: Deferred History of Present Illness Service: Psychiatry Consult date: 03/21/18 Requesting Physician: Americo Blake Reason for Consult: Second opinion for involuntary psychiatric hospitalization Primary Care Provider: UNKNOWN Chief Complaint: tachycardia, fever History of Present Illness: From Dr. Blake's H&P: Patient is a 62-year-old female presenting here for psychosis and suicidal ideation. Patient started out in the psychiatric unit and then showed signs of sepsis with a fever and tachycardia and was transferred to the medical/surgical unit. Patient is confused and says she feels fearful. She is alert and oriented x2. Per record she had suicidal ideation however patient denies suicidal or homicidal ideation intent or plan for this visit. She is complaining of visual hallucinations of seeing pictures on the wall. She has nonspecific paranoia. She does deny auditory visual hallucinations. Pharmacy was called and current medications include Latuda 80 mg daily, Remeron 15 mg p.o. nightly, BuSpar 15 mg p.o. 3 times daily, Cogentin 1 mg daily. Past psych: Schizophrenia, denies history of suicide attempts. Unclear if she has history of admissions. Past medical: See chart Past Famhx: Unsure Past Social: Patient is . She has 2 sons live in [place]. She denies any substance use. On my examination today, 03/21: Patient seen and examined with nurse. Chart reviewed. Case discussed with nursing staff. Patient noted to be quite confused and intermittently agitated. I have explained the purpose of my evaluation to the patient today. On my examination today, the patient's mental status is somewhat improved. She is oriented to person and knows that is the next holiday coming up. She is able to name 2 items and repeat a phrase. She is able to name the current president and the immediately preceding president. She is able to spell the word world forwards and gives it backwards as DLORW. Her registration is 3 out of 3 but her recall is 0 out of 3 at 3 minutes. She denies SI or HI. Denies AVH. Mood is "kind of tired." Sleep is reportedly fair. Psychiatric interview is somewhat limited because of the patient's degree of cognitive impairment. She reports a history of psychiatric diagnosis "somewhere between dementia and" but trails off before finishing the thought. I am unable to obtain any meaningful past psychiatric, family, chemical dependency or social history otherwise on account of her degree of cognitive impairment. No acute physical complaints. Review of Systems unobtainable due to mental condition PMFSH - History History Provided By: Patient - Medical History Medical History: Medical History (Last Reviewed 03/20/18 @ 19:23 by Americo Blake DO) Back pain Confusion Depression High cholesterol History of hysterectomy Hypertension - Surgical History Surgical History: Surgical History (Last Reviewed 03/20/18 @ 19:23 by Americo Blake DO) Hx of cholecystectomy - Tobacco History Second Hand Smoke Exposure: No Tobacco Use In Past 30 Days: No Smoking Status: Never smoker - Alcohol History How Often Do You Have a Drink Containing Alcohol: Never - Substance Use History Substance History: No History of Abuse - Travel History Recent Travel in the [place] Within the Last 8 Weeks: No Recent Travel Out of the Country Within the Last 8 Weeks: No - Immunization History Tetanus Immunization: Unsure Medications and Allergies Active Medications: Active Medications Al Hydrox/Mg Hydrox/Simethicone (Mag-Al Plus Susp Liq) 30 ml PO Q6H PRN PRN Reason: DYSPEPSIA Benztropine Mesylate (Cogentin) 1 mg PO DAILY [facility] Last Admin: 03/21/18 08:06 Dose: 1 mg Bisacodyl (Dulcolax Supp) 10 mg RECTAL DAILY PRN PRN Reason: SEVERE CONSITIPATION Buspirone HCl (Buspar) 15 mg PO TID [facility] Last Admin: 03/21/18 08:07 Dose: 15 mg Clonidine HCl (Catapres) 0.1 mg PO Q6H PRN PRN Reason: sbp>160, dbp >90 Potassium Chloride 10 meq/ (Sodium Chloride) 1,005 mls @ 100 mls/hr IV.CONT .Q10H3M [facility] Last Admin: 03/21/18 08:07 Dose: Not Given Azithromycin 500 mg/ Sodium (Chloride) 250 mls @ 250 mls/hr IV.SIG Q24H [facility] Last Admin: 03/20/18 19:27 Dose: 250 mls/hr Ceftriaxone Sodium 1,000 mg/ (Sodium Chloride) 100 mls @ 200 mls/hr IV.SIG Q24H [facility] Last Admin: 03/20/18 19:28 Dose: 200 mls/hr Lactulose (Lactulose Liq) 30 ml PO DAILY PRN PRN Reason: SEVERE CONSITIPATION Lurasidone HCl (Latuda) 80 mg PO DAILY [facility] Last Admin: 03/21/18 08:07 Dose: 80 mg Mirtazapine (Remeron) 15 mg PO HS [facility] Last Admin: 03/20/18 21:21 Dose: 15 mg Miscellaneous (Pill Splitter) 1 each OTHER UNSCH PRN PRN Reason: SEE LABEL COMMENTS Senna/Docusate Sodium (Tracey-Colace) 1 tab PO BID [facility] Last Admin: 03/21/18 08:06 Dose: 1 tab Sennosides (Senokot) 17.2 mg PO Q12H PRN PRN Reason: Moderate Constipation Allergies Allergy/AdvReac Type Severity Reaction Status Date / Time penicillin G Allergy Intermediate Hives Verified 03/18/18 12:02 Home Medications Medication Instructions Recorded Confirmed Type losartan mg PO DAILY 03/18/18 History lovastatin mg PO DAILY 03/18/18 History lurasidone [Latuda] mg PO DAILY 03/18/18 History mirtazapine 03/18/18 History Exam Vital signs: Vital Signs 03/20/18 17:47 03/21/18 05:46 Temperature 98.7 F 98.3 F Pulse Rate 102 H 80 Respiratory Rate 16 18 Blood Pressure 157/82 H 118/58 L Pulse Oximetry 95 95 Intake & Output 03/20/18 03/21/18 03/21/18 18:59 06:59 18:59 Intake Total 960 / 960 1245 / 1245 Balance 960 / 960 1245 / 1245 Intake: IV 1005 / 1005 KCl Inj 10 MEQ In 1/2 Normal 1005 / 1005 Saline Inj 1,000 ML @ 100 mls/ hr IV.CONT .Q10H3M [facility] Rx#: [id number] Oral 960 / 960 240 / 240 Other: # Voids 0 Narrative: Physical examination completed by hospitalist field consultant. On my examination today, the patient appears to be in no acute physical distress. No motor abnormalities noted. Labs and vital signs reviewed: Laboratory Tests 03/18/18 03/18/18 03/21/18 11:56 20:45 06:50 WBC 11.4 H Hgb 12.1 Plt Count 367 Sodium Potassium Chloride Carbon Dioxide BUN Creatinine Estimated GFR Total Creatine Kinase Urine Opiates Screen Neg Ur Barbiturates Screen Neg Ur Amphetamines Screen Neg U Benzodiazepines Scrn Neg Urine Cocaine Screen Neg U Cannabinoids Screen Neg Serum Alcohol Less than 3 03/21/18 06:50 WBC Hgb Plt Count Sodium 142 Potassium 3.4 L Chloride 106 Carbon Dioxide 30.2 BUN 22 H Creatinine 1.05 H Estimated GFR 64 L Total Creatine Kinase 1090 H Urine Opiates Screen Ur Barbiturates Screen Ur Amphetamines Screen U Benzodiazepines Scrn Urine Cocaine Screen U Cannabinoids Screen Serum Alcohol Impressions Chest X-Ray 03/20/18 10:10 CONCLUSION: No acute findings. Elevated right hemidiaphragm similar to December 2016. Microbiology 03/20/18 12:08 Aerobic Blood Culture - Preliminary Blood - Peripheral No growth in 1 day Anaerobic Blood Culture - Preliminary No growth in 1 day 03/20/18 10:15 Aerobic Blood Culture - Preliminary Blood - Peripheral No growth in 1 day Anaerobic Blood Culture - Preliminary No growth in 1 day Mental Status Examination Appearance: Appropriate (Fair grooming) Consciousness: Alert Orientation: Person, Date/Time (Approximate) Motor Activity: Other (No motor abnormalities noted) Speech: Slow Language: Adequate Fund of Knowledge: Inadequate Attention and Concentration: Easily distracted Memory: Impaired Mood: Other (Calm) Affect: Blunt Thought Process & Associations: Circumstantial Thought Content: Bizarre thinking Hallucination Type: None Delusion Type: None Suicidal Ideation: No Suicidal Plan: No Suicidal Intention: No Homicidal Ideation: No Homicidal Plan: No Homicidal Intention: No Insight: Poor Judgment: Poor Assessment and Plan - Assessment (1) Schizoaffective disorder, unspecified Code(s): F25.9 - Schizoaffective disorder, unspecified Status: Acute - Plan Plan: Given the circumstances of the patient's presentation here and her presentation on my examination today, I concur with Dr. Blake that the patient meets criteria for involuntary psychiatric hospitalization under the Monae act. Main concern here is for self-care deficit as a consequence of possible underlying psychotic illness. I have completed the second opinion paperwork. It is possible that there was a component of underlying delirium due to general medical condition, improving with medical treatment now. Patient overall seems to be improving from a psychiatric standpoint comparing her mental status on my evaluation to nursing report. I will continue Latuda, Remeron and BuSpar as ordered. Check EKG for QTC given antipsychotic therapy. Continue to monitor on the medical psychiatric unit. Hospitalist input appreciated. Continue other medications and care as ordered. Justification for Continued Inpatient Stay: Risk for decompensation in less restrictive environment. Discharge Planning: Pending psychiatric stabilization.
[2018-03-21 14:02] LABS: Hemoglobin A1c 5.8 % (4.3-6.0)
[2018-03-21] MEDS: Azithromycin Inj 500 MG in Sodium Chlor 0.9% Inj 250 ML IV.SIG SCH (18:14)
[2018-03-21] MEDS: Mirtazapine 15 MG Tablet PO SCH (20:29)
[2018-03-22] MEDS: Potassium Chloride Inj 10 MEQ in Sodium Chloride 0.45 % Inj 1,000 ML IV.CONT SCH ×4 (01:01→23:46)
[2018-03-22] MEDS: Senna/Docusate Sodium 8.6/50 MG Tablet PO SCH ×2 (08:12→20:22)
[2018-03-22] MEDS: Lurasidone 80 MG Tablet PO SCH (08:12)
[2018-03-22 09:09] LABS: Calcium 8.7 mg/dL (8.5-10.1); Carbon Dioxide 26.4 meq/L (21.0-32.0)
[2018-03-22 09:30] LABS: CKMB Percent 0.7 % (0.0-4.0); Creatine Kinase MB 5.1 ng/mL (0.5-3.6)
--- NOTE | 2018-03-22 11:12 | P.PNPSY ---
Subjective Chief Complaint: psychosis Remarks: Patient was seen and case discussed with nursing. Patient is less confused, less anxious, and more interactive. She is visual hallucinations of pictures on the wall. Sleep is variable. Patient says she has suicidal ideation without intent or plan. She is alert and oriented x3 Mental Status Examination Appearance: Appropriate (Fair grooming) Consciousness: Alert Orientation: Person, Date/Time (Approximate) Motor Activity: Other (No motor abnormalities noted) Speech: Slow Language: Adequate Fund of Knowledge: Inadequate Attention and Concentration: Easily distracted Memory: Impaired Mood: Other (Calm) Affect: Blunt Thought Process & Associations: Circumstantial Thought Content: Bizarre thinking Hallucination Type: None Delusion Type: None Suicidal Ideation: Yes Suicidal Plan: No Suicidal Intention: No Homicidal Ideation: No Homicidal Plan: No Homicidal Intention: No Insight: Poor Judgment: Poor Assessment and Plan - Assessment (1) Schizoaffective disorder, unspecified Code(s): F25.9 - Schizoaffective disorder, unspecified Status: Acute - Plan Plan: Continue current treatment plan Justification for Continued Inpatient Stay: Patient would decompensate in a less restrictive setting
--- NOTE | 2018-03-22 14:36 | P.PN ---
Subjective Interval history: Nursing denies any deterioration or acute events overnight. Pt awake, sitting in chair, partially cooperates. Nursing denies any deterioration since last night. Denies the patient complaining of any overt diffuse muscle pains with any simple movements. Physical Exam Vital signs: Vital Signs 03/21/18 19:20 03/22/18 06:07 Temperature 98.8 F 98.2 F Pulse Rate 94 H 90 Respiratory Rate 20 18 Blood Pressure 120/59 L 163/65 H Pulse Oximetry 95 94 L Intake & Output 03/21/18 03/22/18 03/22/18 18:59 06:59 18:59 Intake Total 1845 / 1845 1375 / 1375 1965 / 1965 Balance 1845 / 1845 1375 / 1375 1964 / 1965 Intake: IV 1105 / 1105 1255 / 1255 1005 / 1005 KCl Inj 10 MEQ In 1/2 Normal 1005 / 1005 1005 / 1005 1005 / 1005 Saline Inj 1,000 ML @ 100 mls/ hr IV.CONT .Q10H3M [facility] Rx#: [id number] Azithromycin Inj 500 MG In NS 250 / 250 Inj 250 ML @ 250 mls/hr IV.SIG Q24H [facility] Rx#:[id number] Rocephin Inj 1,000 MG In NS Inj 100 / 100 100 ML @ 200 mls/hr IV.SIG Q24H [facility] Rx#:[id number] Oral 740 / 740 120 / 120 960 / 960 Other: # Voids 2 2 2 Narrative: Clear lungs bilaterally, unlabored breathing patient says "ow" will when I touch her shoulders, she is able to elevate both shoulders when prompted Has adequate muscle bulk and tone for age and habitus Results - Labs CBC & Chem 7: 03/21/18 06:50 03/22/18 07:53 Laboratory Results - last 24 hr 03/21/18 03/22/18 12:00 07:53 Sodium 141 Potassium 4.0 Chloride 107 Carbon Dioxide 26.4 Anion Gap 8 BUN 19 H Creatinine 0.85 Estimated GFR 82 L Random Glucose 79 Calcium 8.7 Total Creatine Kinase 718 H CK-MB (CK-2) 5.1 H CK-MB (CK-2) % 0.7 Procalcitonin 0.10 H Microbiology 03/20/18 12:08 Blood - Peripheral Aerobic Blood Culture - Preliminary No growth in 2 days 03/20/18 12:08 Blood - Peripheral Anaerobic Blood Culture - Preliminary No growth in 2 days 03/20/18 10:15 Blood - Peripheral Aerobic Blood Culture - Preliminary No growth in 2 days 03/20/18 10:15 Blood - Peripheral Anaerobic Blood Culture - Preliminary No growth in 2 days Assessment and Plan - Assessment (1) Tachycardia Code(s): R00.0 - Tachycardia, unspecified Status: Acute (2) Hypertension Code(s): I10 - Essential (primary) hypertension Status: Acute (3) Bipolar disorder Code(s): F31.9 - Bipolar disorder, unspecified Status: Acute (4) Suicidal ideation Code(s): R45.851 - Suicidal ideations Status: Acute - Plan This is a 62-year-old, , female, lives with , with history of bipolar disorder, depression, anxiety, multiple psychiatric admissions presents to the emergency room under Monae act initiated by law enforcement for evaluation of suicidal ideation. Patient was admitted to psychiatric unit for psychiatric management. Medicine team was consulted for medical management namely of dehydration, acute kidney injury. Was started on antibiotics for possible infection (source not identified) with leukocytosis. Leukocytosis and volume status has improved, however creatinine kinase levels have been climbing. Dehydration Dehydration is near resolution with IV fluids Hypokalemia is also improving with IV fluids Elevated creatinine kinase/myositis Now is improving, continue IV fluids and recheck in a.m. if does not show sustained improvement then we will have to discuss case with psychiatry to adjust certain medications as below -Possible medications that could be culprits per pharmacy advice include azithromycin, BuSpar, Latuda, Remeron -Sed rate is within normal limits sinus Tachycardia/ -2/2 dehydration, improving Hypertension -amlodipine Elevated temperature/elevated WBC/SIRS Chest x-ray with no acute findings -UA is negative, chest x-ray was negative, continue azithromycin and rocephin, procalcitonin is elevated, stop in 3-4 days Bipolar disorder/ Suicidal ideation/anxiety/depression Bipolar disorder, unspecified Acute Management by psychiatry team DVT prophylaxis: Patient ambulatory
[2018-03-22] MEDS: Azithromycin Inj 500 MG in Sodium Chlor 0.9% Inj 250 ML IV.SIG SCH (18:35)
[2018-03-22] MEDS: Mirtazapine 15 MG Tablet PO SCH (20:22)
[2018-03-23] MEDS: Lurasidone 80 MG Tablet PO SCH (09:15)
[2018-03-23] MEDS: Senna/Docusate Sodium 8.6/50 MG Tablet PO SCH ×2 (09:15→20:59)
[2018-03-23] MEDS: Potassium Chloride Inj 10 MEQ in Sodium Chloride 0.45 % Inj 1,000 ML IV.CONT SCH (10:49)
[2018-03-23 11:20] LABS: CKMB Percent 0.8 % (0.0-4.0)
--- NOTE | 2018-03-23 12:31 | P.TTN ---
- Patient Problems Problems: 1. Discharge planning 2. Medication compliance 3. Knowledge deficit 4. Lack of coping skills - Progress Toward Goals Provider Present: Dr. Rossy Cates (I.V. antibiotic, confused, disorganized, medical issuee.) Psychiatric Counselors Present: GUNNAR Lakhani (Will return home when stable) Group Spec/RT/OT/TURNER Present: YUE Torres (Pt. does not attend groups) - Documentation Teaching Recipient: Patient
--- NOTE | 2018-03-23 16:03 | P.PNPSY ---
Subjective Chief Complaint: psychosis Remarks: Patient seen for follow, chart reviewed. Discussion nursing staff reported the patient continues to be noted to be confused attempting to pull out her IV. Patient was found sitting hospital bed attempting also again to pull out her IV require redirection and noted to be ambulating on unit somewhat disorganized and confused. Patient was able to state that she was in the hospital and was able to get the year right but unable to interact appropriately with interview today. Patient states that she lives with her and had been visited by him yesterday. She admits to having "several voices" which she did not elaborate on. Review of Systems All other systems reviewed negative except as stated in HPI Mental Status Examination Appearance: Appropriate (In hospital gown) Consciousness: Alert Orientation: Person, Date/Time (Approximate) Motor Activity: Other (No motor abnormalities noted) Speech: Slow Language: Adequate Fund of Knowledge: Inadequate Attention and Concentration: Easily distracted Memory: Impaired Mood: Other (Calm) Affect: Blunt Thought Process & Associations: Other ([place]) Thought Content: Hallucinations, Other (Poverty of thought) Hallucination Type: Auditory Delusion Type: None Suicidal Ideation: Yes Suicidal Plan: No Suicidal Intention: No Homicidal Ideation: No Homicidal Plan: No Homicidal Intention: No Insight: Poor Judgment: Poor Assessment and Plan - Assessment (1) Schizoaffective disorder, unspecified Code(s): F25.9 - Schizoaffective disorder, unspecified Status: Acute - Plan Plan: Patient continues to be confused, difficulty with engaging in interview noted to be distracted and internally preoccupied. Patient continues with auditory hallucinations. We will continue current treatment. Patient recently restarted on her medications. we will continue to monitor mood and behavior. Discharge planning in progress. Justification for Continued Inpatient Stay: At risk of further decompensation at lower level care.
--- NOTE | 2018-03-23 16:29 | P.PNIM ---
Subjective Interval history: The patient was resting in bed. She says she has not been peeing well. She has been having bowel movements. Discussed with nursing. Physical Exam Vital signs: Vital Signs 03/22/18 18:54 03/23/18 03:00 03/23/18 05:14 Temperature 97.3 F L 98.7 F 98.8 F Pulse Rate 94 H 87 104 H Respiratory Rate 18 16 18 Blood Pressure 138/72 171/88 H 174/82 H Pulse Oximetry 97 97 Intake & Output 03/22/18 03/23/18 03/23/18 18:59 06:59 18:59 Intake Total 1964 340 / 340 1005 / 1005 Balance 1964 340 / 340 1005 / 1005 Intake: IV 1005 / 1005 1005 / 1005 KCl Inj 10 MEQ In 1/2 Normal 1005 / 1005 1005 / 1005 Saline Inj 1,000 ML @ 100 mls/ hr IV.CONT .Q10H3M [facility] Rx#: [id number] Oral 960 / 960 240 / 240 Oral Supplement 100 / 100 Other: # Voids 2 2 Narrative: GENERAL: Well-developed, well-nourished, no distress. SKIN: Warm and dry. HEAD: Atraumatic. Normocephalic. EYES: Pupils equal and round. No scleral icterus. No injection or drainage. ENT: No nasal bleeding or discharge. Mucous membranes pink and moist. NECK: Trachea midline. No JVD. CARDIOVASCULAR: Regular rate and rhythm. RESPIRATORY: No accessory muscle use. Clear to auscultation. Breath sounds equal bilaterally. GASTROINTESTINAL: Abdomen obese, soft, non-tender, nondistended. Hepatic and splenic margins not palpable. MUSCULOSKELETAL: Extremities without clubbing, cyanosis. 1-2+ edema. NEUROLOGICAL: Awake and alert. No obvious cranial nerve deficits. Generalized weakness, moving all 4 extremities. Normal but minimal speech. PSYCHIATRIC: Flat affect. Results - Labs CBC & Chem 7: 03/21/18 06:50 03/22/18 07:53 Laboratory Results - last 24 hr 03/23/18 09:52 Total Creatine Kinase 384 H CK-MB (CK-2) 3.0 CK-MB (CK-2) % 0.8 Microbiology 03/20/18 12:08 Blood - Peripheral Aerobic Blood Culture - Preliminary No growth in 3 days 03/20/18 12:08 Blood - Peripheral Anaerobic Blood Culture - Preliminary No growth in 3 days 03/20/18 10:15 Blood - Peripheral Aerobic Blood Culture - Preliminary No growth in 3 days 03/20/18 10:15 Blood - Peripheral Anaerobic Blood Culture - Preliminary No growth in 3 days Assessment and Plan - Assessment (1) Tachycardia Code(s): R00.0 - Tachycardia, unspecified Status: Acute (2) Hypertension Code(s): I10 - Essential (primary) hypertension Status: Acute (3) Bipolar disorder Code(s): F31.9 - Bipolar disorder, unspecified Status: Acute (4) Suicidal ideation Code(s): R45.851 - Suicidal ideations Status: Acute - Plan This is a 62-year-old female with history of bipolar disorder, depression, anxiety, multiple psychiatric admissions presents to the emergency room under Monae act initiated by law enforcement for evaluation of suicidal ideation. Patient was admitted to psychiatric unit for psychiatric management. Medicine team was consulted for medical management namely of dehydration, acute kidney injury. Was started on antibiotics for possible infection (source not identified) with leukocytosis. Dehydration Resolved with IV fluids. -d/c fluids, Elevated creatinine kinase/myositis Now is improving. S/p IVFs. -Possible medications that could be culprits per pharmacy advice include BuSpar , Latuda, Remeron. Hypertension Blood pressure has been elevated. -amlodipine 5 mg daily. -clonidine needed. -ARB on hold s/t recent BOBBY. Elevated temperature/elevated WBC/SIRS Chest x-ray with no acute findings. UA is negative, chest x-ray was negative. Likely s/t rhabdo. -d/c antibiotics and monitor. Bipolar disorder/ Suicidal ideation/anxiety/depression Bipolar disorder, unspecified Acute Management by psychiatry team Urinary retention Acute. -place Starr. DVT prophylaxis: Patient ambulatory
[2018-03-23] MEDS: amLODIPine 5 MG Tablet PO SCH (17:49)
[2018-03-23 19:11] LABS: Bilirubin,Urine Negative (Negative); Clarity,Urine Clear (Clear); Color,Urine Yellow (Yellw/Straw); Glucose,Urine (UA) Negative (Negative); Leukocyte Esterase,Urine Negative (Negative); Mucus,Urine Few /lpf (Occasional); Nitrite,Urine Negative (Negative)
--- NOTE | 2018-03-23 20:24 | ECG ---
Date Performed: 03/20/2018 Time Performed: 11:45:48 PTAGE: 62 years EKG: Sinus rhythm When comared to previous tracing, rate is slower an ST-T wave Changes have resolved. NORMAL ECG PREVIOUS TRACING : 01/22/2017 20.46 DOCTOR: Danny Galindo Interpretating Date/Time 03/23/2018 20:24:15
[2018-03-23] MEDS: Mirtazapine 15 MG Tablet PO SCH (20:59)
[2018-03-24] MEDS: amLODIPine 5 MG Tablet PO SCH (08:06)
[2018-03-24] MEDS: Senna/Docusate Sodium 8.6/50 MG Tablet PO SCH ×2 (08:06→20:18)
[2018-03-24] MEDS: Lurasidone 80 MG Tablet PO SCH (08:06)
--- NOTE | 2018-03-24 10:19 | P.PNIM ---
Subjective Interval history: The patient was resting comfortably. She said that the Starr catheter was causing some mild discomfort. She had no other acute complaints. Physical Exam Vital signs: Vital Signs 03/23/18 17:48 03/24/18 06:00 Temperature 99.1 F 99.3 F Pulse Rate 85 101 H Respiratory Rate 17 18 Blood Pressure 177/83 H 166/79 H Pulse Oximetry 98 95 Intake & Output 03/23/18 03/24/18 03/24/18 18:59 06:59 18:59 Intake Total 1485 / 1485 360 / 360 Output Total 1350 / 1350 350 / 350 Balance 135 / 135 -350 / -350 360 / 360 Intake: IV 1005 / 1005 KCl Inj 10 MEQ In 1/2 Normal 1005 / 1005 Saline Inj 1,000 ML @ 100 mls/ hr IV.CONT .Q10H3M [facility] Rx#: [id number] Oral 480 / 480 360 / 360 Output: Urine 350 / 350 Urine Amount (Catheter) 1350 / 1350 Indwelling Urethral Catheter 1350 / 1350 Narrative: GENERAL: Well-developed, well-nourished, no distress. SKIN: Warm and dry. HEAD: Atraumatic. Normocephalic. EYES: Pupils equal and round. No scleral icterus. No injection or drainage. ENT: No nasal bleeding or discharge. Mucous membranes pink and moist. NECK: Trachea midline. No JVD. CARDIOVASCULAR: Regular rate and rhythm. RESPIRATORY: No accessory muscle use. Clear to auscultation. Breath sounds equal bilaterally. GASTROINTESTINAL: Abdomen obese, soft, non-tender, nondistended. Hepatic and splenic margins not palpable. MUSCULOSKELETAL: Extremities without clubbing, cyanosis. 1-2+ edema. NEUROLOGICAL: Awake and alert. No obvious cranial nerve deficits. Generalized weakness, moving all 4 extremities. Normal but minimal speech. PSYCHIATRIC: Flat affect. - Urinary Catheter Management Indwelling Urethral Catheter Cath placed during this visit: yes Reason for continuing: Acute urinary retention Insertion date: 03/23/18 Insertion time: 16:30 Results - Labs CBC & Chem 7: 03/21/18 06:50 03/22/18 07:53 Laboratory Results - last 24 hr 03/23/18 03/23/18 09:52 16:45 Total Creatine Kinase 384 H CK-MB (CK-2) 3.0 CK-MB (CK-2) % 0.8 Urine Color Yellow Urine Clarity Clear Urine pH 5.0 Ur Specific [place] 1.010 Urine Protein Negative Urine Glucose (UA) Negative Urine Ketones Negative Urine Occult Blood Negative Urine Nitrate Negative Urine Bilirubin Negative Urine Urobilinogen Less than 2 Ur Leukocyte Esterase Negative Urine RBC Less than 1 Urine WBC Less than 1 Urine Mucus Few H Micro UA Comment Culture not ind Ur Microscopic Review Not Reportable Urine Culture Comments Culture not ind Microbiology 03/20/18 12:08 Blood - Peripheral Aerobic Blood Culture - Preliminary No growth in 3 days 03/20/18 12:08 Blood - Peripheral Anaerobic Blood Culture - Preliminary No growth in 3 days 03/20/18 10:15 Blood - Peripheral Aerobic Blood Culture - Preliminary No growth in 3 days 03/20/18 10:15 Blood - Peripheral Anaerobic Blood Culture - Preliminary No growth in 3 days Assessment and Plan - Assessment (1) Tachycardia Code(s): R00.0 - Tachycardia, unspecified Status: Acute (2) Hypertension Code(s): I10 - Essential (primary) hypertension Status: Acute (3) Bipolar disorder Code(s): F31.9 - Bipolar disorder, unspecified Status: Acute (4) Suicidal ideation Code(s): R45.851 - Suicidal ideations Status: Acute - Plan This is a 62-year-old female with history of bipolar disorder, depression, anxiety, multiple psychiatric admissions presents to the emergency room under Monae act initiated by law enforcement for evaluation of suicidal ideation. Patient was admitted to psychiatric unit for psychiatric management. Medicine team was consulted for medical management namely of dehydration, acute kidney injury. Was started on antibiotics for possible infection (source not identified) with leukocytosis. Dehydration Resolved with IV fluids. -d/c fluids, Elevated creatinine kinase/myositis Now is improving. S/p IVFs. -Possible medications that could be culprits per pharmacy advice include BuSpar , Latuda, Remeron. Hypertension Blood pressure has been elevated. -amlodipine 5 mg daily. Increase if needed. -clonidine needed. -ARB on hold s/t recent BOBBY. Elevated temperature/elevated WBC/SIRS Chest x-ray with no acute findings. UA is negative, chest x-ray was negative. Likely s/t rhabdo. -d/c antibiotics and monitor. Bipolar disorder/ Suicidal ideation/anxiety/depression Bipolar disorder, unspecified Acute Management by psychiatry team Urinary retention Acute. S/p Starr. -continue Starr for now. -Tylenol as needed for discomfort. DVT prophylaxis: Patient ambulatory
[2018-03-24 10:56] LABS: Baso # (Auto) 0.1 th/mm3 (0.0-0.2); Baso % (Auto) 1.1 % (0.0-2.0); Eos # (Auto) 0.1 th/mm3 (0.0-0.4); Eos % (Auto) 0.6 % (0.0-4.0); Hematocrit 34.1 % (35.0-46.0); Hemoglobin 11.5 gm/dL (11.6-15.3); Lymph # (Auto) 1.5 th/mm3 (1.0-4.8); Lymph % (Auto) 14.3 % (9.0-44.0); Mean Corpuscular HGB Conc 33.6 % (32.0-36.0); Mean Corpuscular Hemoglobin 27.5 pg (27.0-34.0); Mean Corpuscular Volume 81.7 fL (80.0-100.0); Mean Platelet Volume 7.6 fL (7.0-11.0); Mono % (Auto) 9.7 % (0.0-8.0); Neut % (Auto) 74.3 % (16.0-70.0); Platelet Count 349 th/mm3 (150-450); Red Blood Count 4.17 mil/mm3 (4.00-5.30); Red Cell Distribution Width 14.6 % (11.6-17.2); White Blood Count 10.8 th/mm3 (4.0-11.0)
[2018-03-24 11:21] LABS: Calcium 8.7 mg/dL (8.5-10.1); Carbon Dioxide 27.4 meq/L (21.0-32.0)
[2018-03-24] MEDS: Mirtazapine 15 MG Tablet PO SCH (20:18)
--- NOTE | 2018-03-24 21:33 | P.PNPSY ---
Subjective Chief Complaint: psychosis Remarks: Patient seen for follow-up, chart reviewed. Discussion with nursing staff reported that patient continues with episodes of confusion compliant with medication and continues to require assistance to eat. Patient was found lying hospital bed noted to be slightly more engaging and reactive during interview of the continues to have episodes of confusion. Patient states that she has been having trouble staying asleep but her mood has been "good" she reports having spoken to her but continues report feeling depressed along with continued suicidal ideations. Patient states that she has auditory hallucinations sometimes as well as visual hallucination of people around her. Patient reports tolerating medications well. Patient continues on one-to-one observation for safety. Review of Systems All other systems reviewed negative except as stated in HPI Mental Status Examination Appearance: Appropriate (In hospital gown) Consciousness: Alert Orientation: Person, Date/Time (Approximate) Motor Activity: Other (No motor abnormalities noted) Speech: Slow Language: Adequate Fund of Knowledge: Inadequate Attention and Concentration: Easily distracted Memory: Impaired Mood: Good Affect: Blunt Thought Process & Associations: Other ([place]) Thought Content: Hallucinations, Other (Poverty of thought) Hallucination Type: Auditory Delusion Type: None Suicidal Ideation: Yes Suicidal Plan: No Suicidal Intention: No Homicidal Ideation: No Homicidal Plan: No Homicidal Intention: No Insight: Poor Judgment: Poor Assessment and Plan - Assessment (1) Schizoaffective disorder, unspecified Code(s): F25.9 - Schizoaffective disorder, unspecified Status: Acute - Plan Plan: Patient this time continues with depressed mood along with suicidal ideations and continues to have episodes of confusion and having perceptional disturbances. We will continue current medication regimen as patient was recently started back on her psychiatric medications. We will continue recommendations as per prior medical team, hospitalist input appreciated. Continue to monitor mood and behavior. Continue one-to-one observation for safety. Discharge planning a progress. Justification for Continued Inpatient Stay: At risk of further decompensation at lower level care.
[2018-03-25] MEDS: amLODIPine 5 MG Tablet PO SCH (08:20)
[2018-03-25] MEDS: Lurasidone 80 MG Tablet PO SCH (08:20)
[2018-03-25] MEDS: Senna/Docusate Sodium 8.6/50 MG Tablet PO SCH ×2 (08:20→20:05)
--- NOTE | 2018-03-25 10:01 | P.PNIM ---
Subjective Interval history: The patient was sitting up in bed. She said that she had to go to court tomorrow morning. There were reports the patient had trouble sleeping last night. Discussed with nursing. Physical Exam Vital signs: Vital Signs 03/24/18 16:00 03/25/18 06:24 Temperature 98.2 F 97.5 F L Pulse Rate 95 H 100 H Respiratory Rate 18 18 Blood Pressure 194/87 H 170/79 H Pulse Oximetry 94 L 96 Intake & Output 03/24/18 03/25/18 03/25/18 18:59 06:59 18:59 Intake Total 1320 / 1320 480 / 480 960 / 960 Output Total 600 / 600 Balance 1320 / 1320 -120 / -120 960 / 960 Intake: Oral 1320 / 1320 480 / 480 960 / 960 Output: Urine 600 / 600 Narrative: GENERAL: Well-developed, well-nourished, no distress. SKIN: Warm and dry. HEAD: Atraumatic. Normocephalic. EYES: Pupils equal and round. No scleral icterus. No injection or drainage. ENT: No nasal bleeding or discharge. Mucous membranes pink and moist. NECK: Trachea midline. No JVD. CARDIOVASCULAR: Regular rate and rhythm. RESPIRATORY: No accessory muscle use. Clear to auscultation. Breath sounds equal bilaterally. GASTROINTESTINAL: Abdomen obese, soft, non-tender, nondistended. Hepatic and splenic margins not palpable. MUSCULOSKELETAL: Extremities without clubbing, cyanosis. 1-2+ edema. NEUROLOGICAL: Awake and alert. No obvious cranial nerve deficits. Generalized weakness, moving all 4 extremities. Normal but minimal speech. PSYCHIATRIC: Flat affect. - Urinary Catheter Management Indwelling Urethral Catheter Cath placed during this visit: yes Reason for continuing: Acute urinary retention Insertion date: 03/23/18 Insertion time: 16:30 Results - Labs CBC & Chem 7: 03/24/18 10:23 03/24/18 10:23 Laboratory Results - last 24 hr 03/24/18 03/24/18 10:23 10:23 WBC 10.8 RBC 4.17 Hgb 11.5 L Hct 34.1 L MCV 81.7 MCH 27.5 MCHC 33.6 RDW 14.6 Plt Count 349 MPV 7.6 Neut % (Auto) 74.3 H Lymph % (Auto) 14.3 Bell % (Auto) 9.7 H Eos % (Auto) 0.6 Baso % (Auto) 1.1 Neut # (Auto) 8.0 H Lymph # (Auto) 1.5 Bell # (Auto) 1.0 H Eos # (Auto) 0.1 Baso # (Auto) 0.1 WBC Differential . Differential Comment Auto diff final Sodium 143 Potassium 4.0 Chloride 109 H Carbon Dioxide 27.4 Anion Gap 7 BUN 9 Creatinine 0.80 Estimated GFR 88 L Random Glucose 88 Calcium 8.7 Microbiology 03/20/18 12:08 Blood - Peripheral Aerobic Blood Culture - Preliminary No growth in 4 days 03/20/18 12:08 Blood - Peripheral Anaerobic Blood Culture - Preliminary No growth in 4 days 03/20/18 10:15 Blood - Peripheral Aerobic Blood Culture - Preliminary No growth in 4 days 03/20/18 10:15 Blood - Peripheral Anaerobic Blood Culture - Preliminary No growth in 4 days Assessment and Plan - Assessment (1) Tachycardia Code(s): R00.0 - Tachycardia, unspecified Status: Acute (2) Hypertension Code(s): I10 - Essential (primary) hypertension Status: Acute (3) Bipolar disorder Code(s): F31.9 - Bipolar disorder, unspecified Status: Acute (4) Suicidal ideation Code(s): R45.851 - Suicidal ideations Status: Acute - Plan This is a 62-year-old female with history of bipolar disorder, depression, anxiety, multiple psychiatric admissions presents to the emergency room under Monae act initiated by law enforcement for evaluation of suicidal ideation. Patient was admitted to psychiatric unit for psychiatric management. Medicine team was consulted for medical management namely of dehydration, acute kidney injury. Was started on antibiotics for possible infection (source not identified) with leukocytosis. Dehydration Resolved with IV fluids. -d/c fluids. Elevated creatinine kinase/myositis Now is improving. S/p IVFs. -Possible medications that could be culprits per pharmacy advice include BuSpar , Latuda, Remeron. Hypertension Blood pressure has been elevated. -amlodipine increased to 10 mg daily. -clonidine needed. -ARB on hold s/t recent BOBBY. Resume if stable. Elevated temperature/elevated WBC/SIRS Chest x-ray with no acute findings. UA is negative, chest x-ray was negative. Likely s/t rhabdo. -d/c antibiotics and monitor. Bipolar disorder/ Suicidal ideation/anxiety/depression Bipolar disorder, unspecified Acute Management by psychiatry team Urinary retention Acute. S/p Starr. -continue Starr for now. -add Flomax daily. -Tylenol as needed for discomfort. DVT prophylaxis: Patient ambulatory
[2018-03-25] MEDS ORDERED: amLODIPine 5 MG Tablet PO ONE (10:25)
--- NOTE | 2018-03-25 13:26 | P.PNPSY ---
Subjective Chief Complaint: psychosis Remarks: Patient seen for follow up chart reviewed. Discussion with nursing staff reported patient having poor sleep compliant medications continue to be confused at times. Patient was found lying hospital bed noted B, cooperative. Patient states he has been having difficulty staying asleep last evening feeling tired state her mood has been "okay". She states that she spoke with her yesterday but did not elaborate. Patient reports having feeling depressed "a little bit" and continues to have suicide ideation but states that his slightly lessening. Patient denies any auditory or visual hallucinations at this time. Review of Systems All other systems reviewed negative except as stated in HPI Mental Status Examination Appearance: Appropriate (In hospital gown) Consciousness: Alert Orientation: Person, Date/Time (Approximate) Motor Activity: Other (No motor abnormalities noted) Speech: Slow Language: Adequate Fund of Knowledge: Inadequate Attention and Concentration: Easily distracted Memory: Impaired Mood: Sad (A little depressed") Affect: Blunt Thought Process & Associations: Other ([place]) Thought Content: Hallucinations (Denies today), Other (Poverty of thought) Hallucination Type: Auditory (Denies today) Delusion Type: None Suicidal Ideation: Yes Suicidal Plan: No Suicidal Intention: No Homicidal Ideation: No Homicidal Plan: No Homicidal Intention: No Insight: Poor Judgment: Poor Assessment and Plan - Assessment (1) Schizoaffective disorder, unspecified Code(s): F25.9 - Schizoaffective disorder, unspecified Status: Acute - Plan Plan: He does report feeling depressed along with continue suicide ideation but states it is lessening. We will continue current treatment. We will continue to monitor CK levels patient reports having difficult sleep we will add diphenhydramine 51 g p.o. at bedtime as needed for insomnia. Continue rest of medications. Continue to monitor mood and behavior. Hospitalist input appreciated. Discharge planning a progress. Justification for Continued Inpatient Stay: At risk of further decompensation at lower level care.
[2018-03-25] MEDS: Mirtazapine 15 MG Tablet PO SCH (20:05)
[2018-03-26] MEDS: Lurasidone 80 MG Tablet PO SCH (08:43)
[2018-03-26] MEDS: Senna/Docusate Sodium 8.6/50 MG Tablet PO SCH ×2 (08:43→20:55)
[2018-03-26] MEDS: amLODIPine 5 MG Tablet PO SCH (08:43)
[2018-03-26] MEDS: amLODIPine 10 MG Tablet PO SCH (08:43)
--- NOTE | 2018-03-26 14:19 | P.PNPSY ---
Subjective Chief Complaint: psychosis Remarks: Patient seen for follow-up, chart reviewed. Discussion with nursing staff reported that patient no behavioral issues overnight, difficult to redirect at times. Patient was presented to mental health court today and was determined to have a continuance placed. Mental health court market research coordinator to continue treatment. Patient was found later that sitting down noted B, cooperative. She states that she had a pleasant visit with her earlier today and that her mood has been "happy and sad" stating that she is having to be alive but said that she regrets having done "bad stuff to people" which she reports as having been rude or arrogant toward them. She states continuing to feel depressed and continues to have suicide ideations stating "I think I might try to hurt myself ". Patient continues also to have altered hallucinations which she describes as "creepy" but did not elaborate. Patient noted to be less confused and more interactive with interview today. Review of Systems All other systems reviewed negative except as stated in HPI Mental Status Examination Appearance: Appropriate (In hospital gown) Consciousness: Alert Orientation: Person, Date/Time (Approximate) Motor Activity: Other (No motor abnormalities noted) Speech: Slow Language: Adequate Fund of Knowledge: Inadequate Attention and Concentration: Easily distracted Memory: Impaired Mood: Sad (A little depressed") Affect: Blunt Thought Process & Associations: Other ([place]) Thought Content: Hallucinations, Other (Poverty of thought) Hallucination Type: Auditory Delusion Type: None Suicidal Ideation: Yes Suicidal Plan: No Suicidal Intention: No Homicidal Ideation: No Homicidal Plan: No Homicidal Intention: No Insight: Poor Judgment: Poor Assessment and Plan - Assessment (1) Schizoaffective disorder, unspecified Code(s): F25.9 - Schizoaffective disorder, unspecified Status: Acute - Plan Plan: With depressed mood along with suicide ideation and perceptional disturbances. Patient noted to be slightly less confused today and able to engage more in conversation. We will discontinue one-to-one observation as patient continues to have some difficulty redirecting but is redirectable. We will continue to titrate Latuda to 100 mg p.o. daily, continue rest of medications. Continue recommendations per prior medical team. Discharge planning a progress. Justification for Continued Inpatient Stay: At risk of further decompensation at lower level care.
--- NOTE | 2018-03-26 14:19 | P.TTN ---
- Patient Problems Problems: 1. Discharge planning 2. Medication compliance 3. Knowledge deficit 4. Lack of coping skills - Progress Toward Goals Provider Present: Dr. Rossy Cates (I.V. antibiotic, confused, disorganized, medical issuee.) Provider Input: 03/25/2018; per doctor adjustment with patient's medication, she continues to display depression with SI. Nurse(s) Present: RN Nurse Input: 03/25/2018; per RN patient requires coaching and prompting with medication and treatment, she is observed confused with disorganized [facility] Psychiatric Counselors Present: GUNNAR Lakhani (Will return home when stable) Psychiatric Therapist Input: 03/25/2018;counselor will assist with facilitating appropriate dc home when stable outpatient follow-up Group Spec/RT/OT/TURNER Present: YUE Torres (Pt. does not attend groups) Group Spec/RT/OT/TURNER Input: 03/25/2018; patient does not participate with groups or activities due to mental status - Documentation Teaching Recipient: Patient
--- NOTE | 2018-03-26 18:45 | P.PNIM ---
Subjective Interval history: Follow-up dehydration, myositis, hypertension, bipolar disorder, and suicidal ideation. Patient seen and examined laying in bed, complains of lower back pain , relieved with pain medication. Denies any radiation. Worse with movement better with resting. Patient denies any headache or dizziness, chest pain or shortness of breath, abdominal pain, nausea, vomiting, diarrhea or constipation. Patient denies any fever or chills. Nurse denies any acute concern for the patient. Physical Exam Vital signs: Vital Signs 03/26/18 05:51 03/26/18 06:31 03/26/18 18:16 Temperature 98.2 F 98.2 F 98.2 F Pulse Rate 91 H 94 H Respiratory Rate 18 18 17 Blood Pressure 159/77 H 159/77 H 160/81 H Pulse Oximetry 98 98 97 Intake & Output 03/25/18 03/26/18 03/26/18 18:59 06:59 18:59 Intake Total 2640 / 2640 0 / 0 1440 / 1440 Output Total 1050 / 1050 1180 / 1180 Balance 1590 / 1590 -1180 / -1180 1440 / 1440 Weight 82 kg Intake: Oral 2640 / 2640 0 / 0 1440 / 1440 Output: Urine 1050 / 1050 1180 / 1180 Narrative: GENERAL: Well-developed, well-nourished, -[place] female with no apparent distress SKIN: Warm and dry. HEAD: Atraumatic. Normocephalic. EYES: Pupils equal and round. No scleral icterus. No injection or drainage. ENT: No nasal bleeding or discharge. Mucous membranes pink and moist. NECK: Trachea midline. No JVD. CARDIOVASCULAR: Regular rate and rhythm. RESPIRATORY: No accessory muscle use. Clear to auscultation. Breath sounds equal bilaterally. GASTROINTESTINAL: Abdomen obese soft, non-tender, nondistended. Hepatic and splenic margins not palpable. MUSCULOSKELETAL: Extremities without clubbing, cyanosis, or edema. No obvious deformities. NEUROLOGICAL: Awake and alert. No obvious cranial nerve deficits. Motor grossly within normal limits. Generalized weakness, moving all 4 extremities. Normal speech but minimal. PSYCHIATRIC: Flat mood and affect cooperative - Urinary Catheter Management Indwelling Urethral Catheter Cath placed during this visit: yes Reason for continuing: Acute urinary retention Insertion date: 03/23/18 Insertion time: 16:30 Results - Labs CBC & Chem 7: 10/30/18 10:23 03/24/18 10:23 Assessment and Plan - Assessment (1) Tachycardia Code(s): R00.0 - Tachycardia, unspecified Status: Acute (2) Hypertension Code(s): I10 - Essential (primary) hypertension Status: Acute (3) Bipolar disorder Code(s): F31.9 - Bipolar disorder, unspecified Status: Acute (4) Suicidal ideation Code(s): R45.851 - Suicidal ideations Status: Acute - Plan This is a 62-year-old, , female, lives with , with history of bipolar disorder, depression, anxiety, multiple psychiatric admissions presents to the emergency room under Monae act initiated by law enforcement for evaluation of suicidal ideation. Patient was admitted to psychiatric unit for psychiatric management. Medicine team was consulted for medical management. AK I/dehydration/hypokalemia/ elevate elevated CK/myositis Creatinine 1.54, improved from admission 2.09 on 03/18/2018 previously 1.93 on -s/p IV fluid, half-normal saline with KCl -Replace potassium as needed, K level 4.0 -Monitor electrolytes, BMP, CK Tachycardia/Hypertension Tachycardia, unspecified, Acute Likely related to elevated temperature versus dehydration -Sinus rhythm on 12-lead EKG -TSH 2.2, free T4 1.34 -Troponin less than 0.02 -continueClonidine for systolic blood pressure greater than 160 or diastolic blood pressure greater than 90 -Will consider adding metoprolol if continues to be elevated and increase the use of clonidine -Monitor blood pressure. -Monitor heart rate Elevated temperature/elevated WBC/SIRS likley related to rhabdo -Chest x-ray with no acute findings -urinalysis with C&S negative -blood cultures negative -Monitor CBC, BMP and vital signs Urinary retention, acute -Continue Starr catheter -Continue Flomax -UA negative Monitor signs and symptoms Bipolar disorder/ Suicidal ideation/anxiety/depression Bipolar disorder, unspecified Acute Management by psychiatry team DVT prophylaxis: Patient ambulatory Patient can be transferred to medical psychiatric unit for management/medicine team will follow Code Status: Full code Discussed Condition With: Patient and nurse
[2018-03-26] MEDS: Mirtazapine 15 MG Tablet PO SCH (20:55)
[2018-03-27] MEDS: amLODIPine 10 MG Tablet PO SCH (08:38)
[2018-03-27] MEDS: amLODIPine 5 MG Tablet PO SCH (08:38)
[2018-03-27] MEDS: Senna/Docusate Sodium 8.6/50 MG Tablet PO SCH ×2 (08:42→21:14)
[2018-03-27 09:00] LABS: Carbon Dioxide 26.9 meq/L (21.0-32.0); Potassium 3.6 meq/L (3.5-5.1)
--- NOTE | 2018-03-27 09:11 | P.PNIM ---
Subjective Interval history: Follow-up dehydration, myositis, hypertension, bipolar disorder, and suicidal ideation. Patient seen and examined sitting on the side of the bed, eating breakfast without any complaints. Patient denies any abdominal pain, nausea, or vomiting. Patient has met very minimal conversation although answers to the questions appropriately. Patient denies any headache or dizziness, denies any chest pain or shortness of breath, denies any diarrhea or constipation, denies any fever or chills. Nurse denies any concerns. Discussed Graff with the nurse was placed on the for patient unable to void at that time. Will have a bladder rest at this time will DC Graff in a week and do a voiding trial. Continue Flomax. Physical Exam Vital signs: Vital Signs 03/26/18 18:16 03/27/18 05:19 Temperature 98.2 F 98.3 F Pulse Rate 94 H 82 Respiratory Rate 17 17 Blood Pressure 160/81 H 144/69 H Pulse Oximetry 97 97 Intake & Output 03/26/18 03/27/18 03/27/18 18:59 06:59 18:59 Intake Total 1440 / 1440 120 / 120 Output Total 800 / 800 Balance 1440 / 1440 -680 / -680 Intake: Oral 1440 / 1440 120 / 120 Output: Urine Amount (Catheter) 800 / 800 Indwelling Urethral Catheter 800 / 800 Narrative: GENERAL: Well-developed, well-nourished, -German female, with no apparent distress SKIN: Warm and dry. HEAD: Atraumatic. Normocephalic. EYES: Pupils equal and round. No scleral icterus. No injection or drainage. ENT: No nasal bleeding or discharge. Mucous membranes pink and moist. NECK: Trachea midline. No JVD. CARDIOVASCULAR: Regular rate and rhythm. RESPIRATORY: No accessory muscle use. Clear to auscultation. Breath sounds equal bilaterally. GASTROINTESTINAL: Abdomen obese soft, non-tender, nondistended. Hepatic and splenic margins not palpable. MUSCULOSKELETAL: Extremities without clubbing, cyanosis, or edema. No obvious deformities. NEUROLOGICAL: Awake and alert. No obvious cranial nerve deficits. Motor grossly within normal limits. Generalized weakness, moving all 4 extremities. Normal speech but minimal. PSYCHIATRIC: Flat mood and affect, cooperative - Urinary Catheter Management Indwelling Urethral Catheter Cath placed during this visit: yes Reason for continuing: Acute urinary retention Insertion date: 03/23/18 Insertion time: 16:30 Results - Labs CBC & Chem 7: 03/24/18 10:23 03/27/18 07:52 Laboratory Results - last 24 hr 03/27/18 07:52 Sodium 142 Potassium 3.6 Chloride 107 Carbon Dioxide 26.9 Anion Gap 8 BUN 11 Creatinine 0.87 Estimated GFR 80 L Random Glucose 96 Calcium 9.0 Assessment and Plan - Assessment (1) Tachycardia Code(s): R00.0 - Tachycardia, unspecified Status: Acute (2) Hypertension Code(s): I10 - Essential (primary) hypertension Status: Acute (3) Bipolar disorder Code(s): F31.9 - Bipolar disorder, unspecified Status: Acute (4) Suicidal ideation Code(s): R45.851 - Suicidal ideations Status: Acute - Plan This is a 62-year-old, , female, lives with , with history of bipolar disorder, depression, anxiety, multiple psychiatric admissions presents to the emergency room under Monae act initiated by law enforcement for evaluation of suicidal ideation. Patient was admitted to psychiatric unit for psychiatric management. Medicine team was consulted for medical management. AK I/dehydration/hypokalemia/ elevate elevated CK/myositis Creatinine 1.54, improved from admission 2.09 on 03/18/2018 previously 1.93 on -s/p IV fluid, half-normal saline with KCl -Replace potassium as needed, K level 4.0 -Monitor electrolytes, BMP, CK Tachycardia/Hypertension Tachycardia, unspecified, Acute Likely related to elevated temperature versus dehydration -Sinus rhythm on 12-lead EKG -TSH 2.2, free T4 1.34 -Troponin less than 0.02 -continue Clonidine for systolic blood pressure greater than 160 or diastolic blood pressure greater than 90 -Will consider adding metoprolol if continues to be elevated and increase the use of clonidine -Monitor blood pressure. -Monitor heart rate Elevated temperature/elevated WBC/SIRS likely related to rhabdo -Chest x-ray with no acute findings -urinalysis with C&S negative -blood cultures negative -Monitor CBC, BMP and vital signs Urinary retention, acute -Continue Graff catheter x 1 week, then bladder training -Continue Flomax -UA negative -Plan for Bladder training then D/c graff on 03/30/2018, may reinsert graff catheter if don't void in 6 hours, then consult Urology -Monitor signs and symptoms Bipolar disorder/ Suicidal ideation/anxiety/depression Bipolar disorder, unspecified Acute Management by psychiatry team DVT prophylaxis: Patient ambulatory Code Status: full code Discussed Condition With: patient and nurse
[2018-03-27 09:20] LABS: CKMB Percent 0.9 % (0.0-4.0); Creatine Kinase MB 2.3 ng/mL (0.5-3.6)
--- NOTE | 2018-03-27 15:41 | P.PNPSY ---
Subjective Chief Complaint: psychosis Remarks: Patient seen for follow-up, chart reviewed. Discussion with nursing staff reported that patient fell yesterday which she may have tripped on graff tubing when walking but did not endorse any pain. Patient was found sitting on hospital bed, noted to be calm and cooperative. She states having slept better, mood being "gramajo...in a good way". Noted with improved affect, smiling at times, reporting decrease in AH, continues with SI "maybe....less". She reports recalling having fallen yesterday and believes she had tripped on graff tubing, denies any pain or physical complaints at this time. Review of Systems All other systems reviewed negative except as stated in HPI Mental Status Examination Appearance: Appropriate (In hospital gown) Consciousness: Alert Orientation: Person, Date/Time (Approximate) Motor Activity: Other (No motor abnormalities noted) Speech: Slow Language: Adequate Fund of Knowledge: Inadequate Attention and Concentration: Easily distracted Memory: Impaired Mood: Sad (A little depressed") Affect: Blunt Thought Process & Associations: Other ([place]) Thought Content: Hallucinations (lessening), Other (Poverty of thought) Hallucination Type: Auditory Delusion Type: None Suicidal Ideation: Yes (lessening) Suicidal Plan: No Suicidal Intention: No Homicidal Ideation: No Homicidal Plan: No Homicidal Intention: No Insight: Poor Judgment: Poor Assessment and Plan - Assessment (1) Schizoaffective disorder, unspecified Code(s): F25.9 - Schizoaffective disorder, unspecified Status: Acute - Plan Plan: Patient continues with decrease in affect but improving slightly, continues with depressed mood and continued SI but also lessening. Patient to continue treatment, continue to monitor mood and behavior. Discharge planning in progress. Justification for Continued Inpatient Stay: At risk for further decompensation at lower level of care.
[2018-03-27] MEDS: Mirtazapine 15 MG Tablet PO SCH (21:14)
[2018-03-28] MEDS ORDERED: Melatonin 5 MG Tablet PO ONE (01:00)
[2018-03-28] MEDS: Senna/Docusate Sodium 8.6/50 MG Tablet PO SCH ×2 (08:16→20:00)
[2018-03-28] MEDS: amLODIPine 10 MG Tablet PO SCH (08:17)
--- NOTE | 2018-03-28 09:12 | P.PNIM ---
Subjective Interval history: Follow-up urinary retention, dehydration, myositis, hypertension, bipolar disorder, and suicidal ideation. Patient sitting in the chair, sitter at bedside. Patient stated wants to get out of this chair. Denies any pain, headache dizziness, chest pain, or shortness of breath. Denies abdominal pain, nausea, vomiting, diarrhea or constipation. Denies any fever or chills nurse denies any acute concerns. Physical Exam Vital signs: Vital Signs 03/27/18 18:00 03/28/18 06:16 Temperature 98 F 98.1 F Pulse Rate 102 H 92 H Respiratory Rate 20 18 Blood Pressure 151/68 H 132/61 Pulse Oximetry 98 98 Intake & Output 03/27/18 03/28/18 03/28/18 18:59 06:59 18:59 Intake Total 1940 / 1940 240 / 240 Output Total 1050 / 1050 Balance 890 / 890 240 / 240 Intake: Oral 1940 / 1940 240 / 240 Output: Urine Amount (Catheter) 1050 / 1050 Indwelling Urethral Catheter 1050 / 1050 Other: # Voids 0 Narrative: GENERAL: Well-developed, well-nourished, -[place] female, with no apparent distress SKIN: Warm and dry. HEAD: Atraumatic. Normocephalic. EYES: Pupils equal and round. No scleral icterus. No injection or drainage. ENT: No nasal bleeding or discharge. Mucous membranes pink and moist. NECK: Trachea midline. No JVD. CARDIOVASCULAR: Regular rate and rhythm. RESPIRATORY: No accessory muscle use. Clear to auscultation. Breath sounds equal bilaterally. GASTROINTESTINAL: Abdomen obese soft, non-tender, nondistended. Hepatic and splenic margins not palpable. : Graff catheter in place with moderate amount of light yellow urine MUSCULOSKELETAL: Extremities without clubbing, cyanosis, or edema. No obvious deformities. NEUROLOGICAL: Awake and alert. No obvious cranial nerve deficits. Motor grossly within normal limits. Generalized weakness, moving all 4 extremities. Normal speech but minimal. PSYCHIATRIC: Flat mood and affect, cooperative - Urinary Catheter Management Indwelling Urethral Catheter Cath placed during this visit: yes Reason for continuing: Acute urinary retention Insertion date: 03/23/18 Insertion time: 16:30 Results - Labs CBC & Chem 7: 03/24/18 10:23 03/27/18 07:52 Laboratory Results - last 24 hr 03/27/18 07:52 Sodium 142 Potassium 3.6 Chloride 107 Carbon Dioxide 26.9 Anion Gap 8 BUN 11 Creatinine 0.87 Estimated GFR 80 L Random Glucose 96 Calcium 9.0 Total Creatine Kinase 255 H CK-MB (CK-2) 2.3 CK-MB (CK-2) % 0.9 Assessment and Plan - Assessment (1) Tachycardia Code(s): R00.0 - Tachycardia, unspecified Status: Acute (2) Hypertension Code(s): I10 - Essential (primary) hypertension Status: Acute (3) Bipolar disorder Code(s): F31.9 - Bipolar disorder, unspecified Status: Acute (4) Suicidal ideation Code(s): R45.851 - Suicidal ideations Status: Acute (5) Acute urinary retention Code(s): R33.8 - Other retention of urine Status: Acute - Plan This is a 62-year-old, , female, lives with , with history of bipolar disorder, depression, anxiety, multiple psychiatric admissions presents to the emergency room under Monae act initiated by law enforcement for evaluation of suicidal ideation. Patient was admitted to psychiatric unit for psychiatric management. Medicine team was consulted for medical management. AK I/dehydration/hypokalemia/ elevate elevated CK/myositis Creatinine 1.54, improved from admission 2.09 on 03/18/2018 previously 1.93 on -s/p IV fluid, half-normal saline with KCl -Replace potassium as needed, K level 4.0 -Monitor electrolytes, BMP, CK Urinary retention, acute -UA negative -Continue Graff catheter x 1 week, then bladder training -Continue Flomax -Plan for Bladder training then D/c graff on 03/30/2018, may reinsert graff catheter if don't void in 6 hours, then consult Urology -Monitor signs and symptoms Tachycardia/Hypertension Tachycardia, unspecified, Acute Likely related to elevated temperature versus dehydration -Sinus rhythm on 12-lead EKG -TSH 2.2, free T4 1.34 -Troponin less than 0.02 -continue Clonidine for systolic blood pressure greater than 160 or diastolic blood pressure greater than 90 -start metoprolol for elevated HR and BP -Monitor blood pressure. 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
[2018-03-28] MEDS: Metoprolol Tartrate 50 MG Tablet PO SCH ×2 (09:23→20:00)
--- NOTE | 2018-03-28 17:10 | P.PNPSY ---
Subjective Chief Complaint: psychosis Remarks: Patient was seen and case discussed with nursing. Patient is alert and oriented x3 though thought process is quite delayed. She remains confused and nursing notices sundowning. She continues to have visual hallucinations of not there, today describing a baby in blue. Behaving well on the unit Mental Status Examination Appearance: Appropriate (In hospital gown) Consciousness: Alert Orientation: Person, Date/Time (Approximate) Motor Activity: Other (No motor abnormalities noted) Speech: Slow Language: Adequate Fund of Knowledge: Inadequate Attention and Concentration: Easily distracted Memory: Impaired Mood: Sad (A little depressed") Affect: Blunt Thought Process & Associations: Other ([place]) Thought Content: Hallucinations (lessening), Other (Poverty of thought) Hallucination Type: Auditory Delusion Type: None Suicidal Ideation: Yes (lessening) Suicidal Plan: No Suicidal Intention: No Homicidal Ideation: No Homicidal Plan: No Homicidal Intention: No Insight: Poor Judgment: Poor Assessment and Plan - Assessment (1) Schizoaffective disorder, unspecified Code(s): F25.9 - Schizoaffective disorder, unspecified Status: Acute - Plan Plan: Continue current treatment plan Justification for Continued Inpatient Stay: Patient would decompensate in a less restrictive setting
[2018-03-28] MEDS: Mirtazapine 15 MG Tablet PO SCH (20:00)
[2018-03-29] MEDS: Acetaminophen 325 MG Tablet PO PRN (04:28)
[2018-03-29] MEDS: Metoprolol Tartrate 50 MG Tablet PO SCH ×2 (08:20→20:09)
[2018-03-29] MEDS: Senna/Docusate Sodium 8.6/50 MG Tablet PO SCH ×2 (08:20→20:09)
--- NOTE | 2018-03-29 09:04 | P.PNIM ---
Subjective Interval history: Follow-up urinary retention, dehydration, myositis, hypertension, bipolar disorder, and suicidal ideation. Denies any pain or SOB, eating well breakfast, no nausea or vomiting. stated want to talk to someone, "C/o she has been taking money from the goverment and from her family" Nurse denies any acute concern Physical Exam Vital signs: Vital Signs 03/28/18 17:51 03/29/18 05:57 Temperature 98.2 F 98.3 F Pulse Rate 79 73 Respiratory Rate 18 17 Blood Pressure 103/57 L 110/56 L Pulse Oximetry 97 99 Intake & Output 03/28/18 03/29/18 03/29/18 19:59 06:59 18:59 Intake Total Output Total Balance Intake: Oral Output: Urine Narrative: GENERAL: Well-developed, well-nourished, -[place] female, with no apparent distress SKIN: Warm and dry. HEAD: Atraumatic. Normocephalic. EYES: Pupils equal and round. No scleral icterus. No injection or drainage. ENT: No nasal bleeding or discharge. Mucous membranes pink and moist. NECK: Trachea midline. No JVD. CARDIOVASCULAR: Regular rate and rhythm. RESPIRATORY: No accessory muscle use. Clear to auscultation. Breath sounds equal bilaterally. GASTROINTESTINAL: Abdomen obese soft, non-tender, nondistended. Hepatic and splenic margins not palpable. : Graff catheter in place with moderate amount of light yellow urine MUSCULOSKELETAL: Extremities without clubbing, cyanosis, or edema. No obvious deformities. NEUROLOGICAL: Awake and alert. No obvious cranial nerve deficits. Motor grossly within normal limits. Generalized weakness, moving all 4 extremities. Normal speech but minimal. PSYCHIATRIC: Flat mood and affect, cooperative - Urinary Catheter Management Indwelling Urethral Catheter Cath placed during this visit: yes Reason for continuing: Acute urinary retention Insertion date: 03/23/18 Insertion time: 16:30 Results - Labs CBC & Chem 7: 03/24/18 10:23 03/27/18 07:52 Assessment and Plan - Assessment (1) Tachycardia Code(s): R00.0 - Tachycardia, unspecified Status: Acute (2) Hypertension Code(s): I10 - Essential (primary) hypertension Status: Acute (3) Bipolar disorder Code(s): F31.9 - Bipolar disorder, unspecified Status: Acute (4) Suicidal ideation Code(s): R45.851 - Suicidal ideations Status: Acute (5) Acute urinary retention Code(s): R33.8 - Other retention of urine Status: Acute - Plan This is a 62-year-old, , female, lives with , with history of bipolar disorder, depression, anxiety, multiple psychiatric admissions presents to the emergency room under Monae act initiated by law enforcement for evaluation of suicidal ideation. Patient was admitted to psychiatric unit for psychiatric management. Medicine team was consulted for medical management. AK I/dehydration/hypokalemia/ elevate elevated CK/myositis Creatinine 1.54, improved from admission 2.09 on 03/18/2018 previously 1.93 on -s/p IV fluid, half-normal saline with KCl -Replace potassium as needed, K level 4.0 -Monitor electrolytes, BMP, CK -improved Urinary retention, acute -UA negative -Continue Graff catheter x 1 week, then bladder training, graff care daily and prn -Continue Flomax -Plan for Bladder training then D/c graff on 03/30/2018, may reinsert graff catheter if don't void in 6 hours, then consult Urology -Monitor signs and symptoms Tachycardia/Hypertension Tachycardia, unspecified, Acute Likely related to elevated temperature versus dehydration BP Labile -Sinus rhythm on 12-lead EKG -TSH 2.2, free T4 1.34 -Troponin less than 0.02 -continue Clonidine for systolic blood pressure greater than 160 or diastolic blood pressure greater than 90 -start metoprolol for elevated HR and BP -Monitor blood pressure. -Monitor heart rate Elevated temperature/elevated WBC/SIRS Resolved likely related to rhabdo -Chest x-ray with no acute findings -urinalysis with C&S negative -blood cultures negative -Monitor CBC, BMP and vital signs Bipolar disorder/ Suicidal ideation/anxiety/depression Bipolar disorder, unspecified Acute Management by psychiatry team DVT prophylaxis: Patient ambulatory Code Status: full code Discussed Condition With: alhaji and
--- NOTE | 2018-03-29 13:34 | P.PNPSY ---
Subjective Chief Complaint: psychosis Remarks: Patient was seen and case discussed with nursing. Patient remains pleasantly confused. Today she is paranoid that she stole somebody's money. She also continues to see pictures on the wall that are not there. Compliant with medications, no outbursts Mental Status Examination Appearance: Appropriate (In hospital gown) Consciousness: Alert Orientation: Person, Date/Time (Approximate) Motor Activity: Other (No motor abnormalities noted) Speech: Slow Language: Adequate Fund of Knowledge: Inadequate Attention and Concentration: Easily distracted Memory: Impaired Mood: Sad (A little depressed") Affect: Blunt Thought Process & Associations: Other ([place]) Thought Content: Hallucinations (lessening), Other (Poverty of thought) Hallucination Type: Auditory Delusion Type: None Suicidal Ideation: Yes (lessening) Suicidal Plan: No Suicidal Intention: No Homicidal Ideation: No Homicidal Plan: No Homicidal Intention: No Insight: Poor Judgment: Poor Assessment and Plan - Assessment (1) Schizoaffective disorder, unspecified Code(s): F25.9 - Schizoaffective disorder, unspecified Status: Acute - Plan Plan: Continue current treatment plan Justification for Continued Inpatient Stay: Patient would decompensate in a less restrictive setting
[2018-03-29] MEDS: Mirtazapine 15 MG Tablet PO SCH (20:09)
--- NOTE | 2018-03-30 08:28 | P.PNIM ---
Subjective Interval history: Follow-up urinary retention, dehydration, myositis, hypertension, bipolar disorder, and suicidal ideation. Patient sitting in the bed, awake, not responding to verbal commands, LE reacts to touch and eyes open and blink to stimulus, reactive to lights. Nurse reported patient awake not responding to the nurse verbaly or in action Neuro checks negative Blood Sugar 97 VS HR 90, BP 140/60, SPO2 97 % RA discussed with nurse Physical Exam Vital signs: Vital Signs 03/29/18 09:09 03/29/18 18:13 03/30/18 05:58 Temperature 97.2 F L 98.1 F Pulse Rate 84 77 Respiratory Rate 17 18 Blood Pressure 104/56 L 130/62 Pulse Oximetry 95 92 L Intake & Output 03/29/18 03/30/18 03/30/18 18:59 06:59 18:59 Intake Total 1880 / 1880 240 / 240 Output Total 800 / 800 1000 / 1000 Balance 1080 / 1080 -760 / -760 Weight 77.6 kg Intake: Oral 1880 / 1880 240 / 240 Output: Urine 800 / 800 1000 / 1000 Other: Post Void Residual 800 Narrative: GENERAL: Well-developed, well-nourished, -[place] female, with no verbal response today, no apparent distress SKIN: Warm and dry. HEAD: Atraumatic. Normocephalic. EYES: Pupils equal and round. No scleral icterus. No injection or drainage. Pupils reactive to lights ENT: No nasal bleeding or discharge. Mucous membranes pink and moist. NECK: Trachea midline. No JVD. CARDIOVASCULAR: Regular rate and rhythm. RESPIRATORY: No accessory muscle use. Clear to auscultation. Breath sounds equal bilaterally. GASTROINTESTINAL: Abdomen obese soft, non-tender, nondistended. Hepatic and splenic margins not palpable. : Graff catheter in place with moderate amount of light yellow urine MUSCULOSKELETAL: Extremities without clubbing, cyanosis, or edema. No obvious deformities. NEUROLOGICAL: Awake and alert. Pupils reacts to light and stimulus, Feet reacts to touch, does not respond to verbal command. Generalized weakness, moving all 4 extremities. No verbal response at this time PSYCHIATRIC: Flat mood and affect - Urinary Catheter Management Indwelling Urethral Catheter Cath placed during this visit: yes Reason for continuing: Acute urinary retention Insertion date: 03/23/18 Insertion time: 16:30 Results - Labs CBC & Chem 7: 03/24/18 10:23 03/27/18 07:52 Laboratory Results - last 24 hr 03/30/18 08:05 POC Glucose 96 Assessment and Plan - Assessment (1) Tachycardia Code(s): R00.0 - Tachycardia, unspecified Status: Acute (2) Hypertension Code(s): I10 - Essential (primary) hypertension Status: Acute (3) Bipolar disorder Code(s): F31.9 - Bipolar disorder, unspecified Status: Acute (4) Suicidal ideation Code(s): R45.851 - Suicidal ideations Status: Acute (5) Acute urinary retention Code(s): R33.8 - Other retention of urine Status: Acute - Plan This is a 62-year-old, , female, lives with , with history of bipolar disorder, depression, anxiety, multiple psychiatric admissions presents to the emergency room under Monae act initiated by law enforcement for evaluation of suicidal ideation. Patient was admitted to psychiatric unit for psychiatric management. Medicine team was consulted for medical management. AK I/dehydration/hypokalemia/ elevate elevated CK/myositis Creatinine 1.54, improved from admission 2.09 on 03/18/2018 previously 1.93 on -s/p IV fluid, half-normal saline with KCl -Replace potassium as needed, K level 4.0 -Monitor electrolytes, BMP, CK -improved Urinary retention, acute -UA negative -Continue Flomax - D/c graff on 03/30/2018, may reinsert graff catheter if don't void in 6 hours, then consult Urology -Monitor signs and symptoms Tachycardia/Hypertension Tachycardia, unspecified, Acute Likely related to elevated temperature versus dehydration BP Labile -Sinus rhythm on 12-lead EKG -TSH 2.2, free T4 1.34 -Troponin less than 0.02 -continue Clonidine for systolic blood pressure greater than 160 or diastolic blood pressure greater than 90 -start metoprolol for elevated HR and BP -Monitor blood pressure. -Monitor heart rate Elevated temperature/elevated WBC/SIRS Resolved likely related to rhabdo -Chest x-ray with no acute findings -urinalysis with C&S negative -blood cultures negative -Monitor CBC, BMP and vital signs Bipolar disorder/ Suicidal ideation/anxiety/depression Bipolar disorder, unspecified Acute Management by psychiatry team Altered mental status likely related to psychosis -neuro check negative -VS Stable, BS 97, BP 140/60, HR 90, Spo2 97 % in RA, respiration 18 and non- labored -continue neruo checks DVT prophylaxis: Patient ambulatory Code Status: full code Discussed Condition With: patient and nurse
[2018-03-30] MEDS: Senna/Docusate Sodium 8.6/50 MG Tablet PO SCH ×2 (09:32→20:25)
[2018-03-30] MEDS: Metoprolol Tartrate 50 MG Tablet PO SCH ×2 (09:32→20:25)
--- NOTE | 2018-03-30 12:37 | P.TTN ---
- Patient Problems Problems: 1. Discharge planning 2. Medication compliance 3. Knowledge deficit 4. Lack of coping skills - Progress Toward Goals Provider Present: Dr. Rossy Cates (I.V. antibiotic, confused, disorganized, medical issuee.) Provider Input: 03/30/2018; per doctor medication has been adjusted with an increase to address current mental status. 03/25/2018; per doctor adjustment with patient's medication, she continues to display depression with SI. Nurse(s) Present: ROSINA Padilla Nurse Input: 03/30/2018; per RN patient requires coaching and prompting with medication, she is eating her meals, still very delusional. 03/25/2018; per RN patient requires coaching and prompting with medication and treatment, she is observed confused with disorganized [facility] Psychiatric Counselors Present: Milagros Haskins [facility] (Will return home when stable) Psychiatric Therapist Input: 03/30/2018; counselor spoke with [place] patient' s who reports although he would like patient to return home, she feels she remain very delusional. Counselor will encourage patient to participate with groups and other unit activities. 03/25/2018;counselor will assist with facilitating appropriate dc home when stable outpatient follow-up Group Spec/RT/OT/TURNER Present: YUE Torres (Pt. does not attend groups) Group Spec/RT/OT/TURNER Input: 03/30/2018; patient has not participate with groups or activities due to her current mental status. 03/25/2018; patient does not participate with groups or activities due to mental status - Documentation Teaching Recipient: Patient
[2018-03-30] MEDS: LORazepam 1 MG Tablet PO SCH ×2 (15:14→20:28)
--- NOTE | 2018-03-30 15:27 | P.PNPSY ---
Subjective Chief Complaint: psychosis Remarks: Patient seen for follow-up, chart reviewed. Discussion with nursing staff reported that patient noted to be staring, appearing to respond to internal stimuli, Starr was removed today. Patient was found lying hospital bed noted to be responsive to interview although noted to be alert and not somnolent or obtunded but simply with selective mutism with flaccid flexibility staring with some rigidity which patient appearing catatonic this morning. Patient later was noted to be more responsive with staff and was able to walk around the unit and was able to be directed to shower and eat. Review of Systems All other systems reviewed negative except as stated in HPI Mental Status Examination Appearance: Appropriate (In hospital gown) Consciousness: Alert Orientation: Person, Date/Time (Approximate) Motor Activity: Other (No motor abnormalities noted) Speech: Slow Language: Adequate Fund of Knowledge: Inadequate Attention and Concentration: Easily distracted Memory: Impaired Mood: Other (Selectively mute and would not respond) Affect: Flat Thought Process & Associations: Other ([place]) Thought Content: Hallucinations (lessening), Other (Poverty of thought) Hallucination Type: Auditory Delusion Type: None Suicidal Ideation: Yes (As endorsed previously but would not respond today) Suicidal Plan: No Suicidal Intention: No Homicidal Ideation: No Homicidal Plan: No Homicidal Intention: No Insight: Poor Judgment: Poor Assessment and Plan - Assessment (1) Schizoaffective disorder, unspecified Code(s): F25.9 - Schizoaffective disorder, unspecified Status: Acute - Plan Plan: Patient this time appearing catatonic, with symptoms of catatonia as described in HPI. We will start Ativan 1 mg p.o. 3 times daily, continue rest of medications. Patient with a score of 15 on the [place] catatonia rating scale. we will continue to monitor mood and behavior. Discharge planning in progress. Justification for Continued Inpatient Stay: At risk of further decompensation at lower level care.
[2018-03-30] MEDS: Mirtazapine 15 MG Tablet PO SCH (20:25)
--- NOTE | 2018-03-31 08:18 | P.PNIM ---
Subjective Interval history: Follow-up urinary retention, dehydration, myositis, hypertension, bipolar disorder, and suicidal ideation. Pt sitting in the chair, eating breakfast, denies any abdominal pain, nausea, vomiting, diarrhea or constipation. Patient more responsive with verbal questions at this time. Denies any pain or SOB, denies any fever or chills. Sleep well last night. Nurse reported patient ambulated in the hallway and to the bathroom Physical Exam Vital signs: Vital Signs 03/30/18 12:00 03/30/18 16:00 03/30/18 17:41 Temperature 97 F L 97.6 F 97.6 F Pulse Rate 63 101 H 65 Respiratory Rate 16 17 15 Blood Pressure 110/55 L 126/90 136/63 Pulse Oximetry 99 03/31/18 06:00 Temperature 97.2 F L Pulse Rate 68 Respiratory Rate 18 Blood Pressure 132/62 Pulse Oximetry 96 Intake & Output 03/30/18 03/31/18 03/31/18 18:59 06:59 18:59 Intake Total 4000 / 4000 1200 / 1200 Balance 4000 / 4000 1200 / 1200 Intake: Oral 4000 / 4000 1200 / 1200 Other: # Voids 3 Narrative: GENERAL: Well-developed, well-nourished, -[place] female, with verbal response today, sitting in the chair no apparent distress SKIN: Warm and dry. HEAD: Atraumatic. Normocephalic. EYES: Pupils equal and round. No scleral icterus. No injection or drainage. Pupils reactive to lights ENT: No nasal bleeding or discharge. Mucous membranes pink and moist. NECK: Trachea midline. No JVD. CARDIOVASCULAR: Regular rate and rhythm. RESPIRATORY: No accessory muscle use. Clear to auscultation. Breath sounds equal bilaterally. GASTROINTESTINAL: Abdomen obese soft, non-tender, nondistended. Hepatic and splenic margins not palpable. : Graff catheter in place with moderate amount of light yellow urine MUSCULOSKELETAL: Extremities without clubbing, cyanosis, or edema. No obvious deformities. NEUROLOGICAL: Awake and alert and oriented x 2. Generalized weakness, moving all 4 extremities. No verbal response at this time PSYCHIATRIC: Flat mood and affect - Urinary Catheter Management Indwelling Urethral Catheter Cath placed during this visit: yes, but has since been removed by the nurse Reason for continuing: Acute urinary retention Insertion date: 03/23/18 Insertion time: 16:30 Removal date: 03/30/18 Removal time: 07:00 Results - Labs CBC & Chem 7: 03/24/18 10:23 03/27/18 07:52 Laboratory Results - last 24 hr 03/20/18 09:32 Vit D 1,25-Dihydroxy 66 Assessment and Plan - Assessment (1) Tachycardia Code(s): R00.0 - Tachycardia, unspecified Status: Acute (2) Hypertension Code(s): I10 - Essential (primary) hypertension Status: Acute (3) Bipolar disorder Code(s): F31.9 - Bipolar disorder, unspecified Status: Acute (4) Suicidal ideation Code(s): R45.851 - Suicidal ideations Status: Acute (5) Acute urinary retention Code(s): R33.8 - Other retention of urine Status: Acute - Plan This is a 62-year-old, , female, lives with , with history of bipolar disorder, depression, anxiety, multiple psychiatric admissions presents to the emergency room under Monae act initiated by law enforcement for evaluation of suicidal ideation. Patient was admitted to psychiatric unit for psychiatric management. Medicine team was consulted for medical management. AK I/dehydration/hypokalemia/ elevate elevated CK/myositis Creatinine 1.54, improved from admission 2.09 on 03/18/2018 previously 1.93 on -s/p IV fluid, half-normal saline with KCl -Replace potassium as needed, K level 4.0 -Monitor electrolytes, BMP, CK -improved Urinary retention, acute -UA negative -Continue Flomax - D/c graff on 03/30/2018, may reinsert graff catheter if don't void in 6 hours, then consult Urology -Monitor signs and symptoms Tachycardia/Hypertension Tachycardia, unspecified, Acute Likely related to elevated temperature versus dehydration BP Labile -Sinus rhythm on 12-lead EKG -TSH 2.2, free T4 1.34 -Troponin less than 0.02 -continue Clonidine for systolic blood pressure greater than 160 or diastolic blood pressure greater than 90 -start metoprolol for elevated HR and BP -Monitor blood pressure. -Monitor heart rate Elevated temperature/elevated WBC/SIRS Resolved likely related to rhabdo -Chest x-ray with no acute findings -urinalysis with C&S negative -blood cultures negative -Monitor CBC, BMP and vital signs Bipolar disorder/ Suicidal ideation/anxiety/depression Bipolar disorder, unspecified Acute Management by psychiatry team Altered mental status likely related to psychosis -improving -neuro check negative -VS Stable, BS 97, BP 140/60, HR 90, Spo2 97 % in RA, respiration 18 and non- labored -continue neruo checks DVT prophylaxis: Patient ambulatory Code Status: full code Discussed Condition With: patient and nurse
[2018-03-31 08:53] LABS: Baso # (Auto) 0.1 th/mm3 (0.0-0.2); Baso % (Auto) 1.2 % (0.0-2.0); Eos # (Auto) 0.1 th/mm3 (0.0-0.4); Eos % (Auto) 1.5 % (0.0-4.0); Hematocrit 35.4 % (35.0-46.0); Hemoglobin 11.8 gm/dL (11.6-15.3); Lymph # (Auto) 1.7 th/mm3 (1.0-4.8); Lymph % (Auto) 19.2 % (9.0-44.0); Mean Corpuscular HGB Conc 33.3 % (32.0-36.0); Mean Corpuscular Hemoglobin 27.6 pg (27.0-34.0); Mean Corpuscular Volume 82.8 fL (80.0-100.0); Mean Platelet Volume 7.9 fL (7.0-11.0); Mono # (Auto) 0.6 th/mm3 (0.0-0.9); Mono % (Auto) 6.8 % (0.0-8.0); Neut # (Auto) 6.2 th/mm3 (1.8-7.7); Neut % (Auto) 71.3 % (16.0-70.0); Platelet Count 373 th/mm3 (150-450); Red Blood Count 4.27 mil/mm3 (4.00-5.30); White Blood Count 8.8 th/mm3 (4.0-11.0)
[2018-03-31 09:06] LABS: Carbon Dioxide 26.8 meq/L (21.0-32.0); Potassium 3.9 meq/L (3.5-5.1)
[2018-03-31] MEDS: Senna/Docusate Sodium 8.6/50 MG Tablet PO SCH ×2 (10:00→20:27)
[2018-03-31] MEDS: LORazepam 1 MG Tablet PO SCH ×3 (12:16→20:28)
[2018-03-31] MEDS: Metoprolol Tartrate 50 MG Tablet PO SCH ×2 (12:27→20:28)
--- NOTE | 2018-03-31 16:05 | P.PNPSY ---
Subjective Chief Complaint: psychosis Remarks: Patient seen for follow up; chart reviewed. Discussion with nursing staff reported spoke with on the phone this morning with more appropriate more responsive ate breakfast and slept well last night. Patient was found sitting hospital chair continues to have poor eye contact but more reactive and responsive during interview today. Patient reports having slept well and that her mood has been "so-so" stating having spoken to her this morning but did not elaborate on content. She states that she is feeling "a little better but continues report feeling confused continues report feeling depressed with intermittent suicide ideation and states that her voices are decreasing. Review of Systems All other systems reviewed negative except as stated in HPI Mental Status Examination Appearance: Appropriate (In hospital gown) Consciousness: Alert Orientation: Person, Date/Time (Approximate) Motor Activity: Other (No motor abnormalities noted) Speech: Slow Language: Adequate Fund of Knowledge: Inadequate Attention and Concentration: Easily distracted Memory: Impaired Mood: Other (Depressed) Affect: Flat (Slightly more reactive) Thought Process & Associations: Other ([place]) Thought Content: Hallucinations (lessening), Other (Poverty of thought) Hallucination Type: Auditory Delusion Type: None Suicidal Ideation: Yes (Intermittent) Suicidal Plan: No Suicidal Intention: No Homicidal Ideation: No Homicidal Plan: No Homicidal Intention: No Insight: Poor Judgment: Poor Assessment and Plan - Assessment (1) Schizoaffective disorder, unspecified Code(s): F25.9 - Schizoaffective disorder, unspecified Status: Acute - Plan Plan: Patient noted more reactive, responding to the Ativan added to her regimen, more participatory today but continued to feel depressed along with intermittent suicide ideation and lessening of hallucinations. We will increase mirtazapine to 30 mg p.o. at bedtime for depression, continue rest of medications. Continue to monitor mood and behavior. Discharge planning a progress. Justification for Continued Inpatient Stay: At risk of further decompensation at lower level care.
[2018-03-31] MEDS: Mirtazapine 15 MG Tablet PO SCH (20:27)
[2018-04-01] MEDS: Senna/Docusate Sodium 8.6/50 MG Tablet PO SCH ×2 (09:50→20:09)
[2018-04-01] MEDS: Metoprolol Tartrate 50 MG Tablet PO SCH ×2 (09:50→20:10)
--- NOTE | 2018-04-01 11:21 | P.PNPSY ---
Subjective Chief Complaint: psychosis Remarks: Patient seen for follow-up, chart reviewed. Discussion with nursing staff reported that patient patient with poor sleep last night. Patient was found in day room speaking to her over the phone noted B, cooperative. Patient states that she wants to go home pretty soon, reports her feeling "okay" recalls having chronic back pain states that she did not sleep last evening when she is feeling tired today. Patient reports her mood in general has been okay denies any suicide ideations stating the last time was 2 days ago but continues to report feeling confused although she is alert and oriented x3. She states that she misses her children I would like to reconnect with him soon. She mentions of feeling guilty also states she had done in the past did not elaborate and that her repentance has to be in the charge referring to something to be done to her hair. Review of Systems All other systems reviewed negative except as stated in HPI Mental Status Examination Appearance: Appropriate (In hospital gown) Consciousness: Alert Orientation: Person, Date/Time (Approximate) Motor Activity: Other (No motor abnormalities noted) Speech: Slow Language: Adequate Fund of Knowledge: Inadequate Attention and Concentration: Easily distracted Memory: Impaired Mood: Other (Depressed) Affect: Blunt (More reactive) Thought Process & Associations: Other ([place]) Thought Content: Bizarre thinking Hallucination Type: None Delusion Type: None Suicidal Ideation: Yes (Denies today) Suicidal Plan: No Suicidal Intention: No Homicidal Ideation: No Homicidal Plan: No Homicidal Intention: No Insight: Poor Judgment: Impulsive Assessment and Plan - Assessment (1) Schizoaffective disorder, unspecified Code(s): F25.9 - Schizoaffective disorder, unspecified Status: Acute - Plan Plan: Patient this time continues with improvement in affect and more engaging and reactive during conversation after her morning medication. Patient continues to have some bizarre thinking regarding feelings of guilt of something she states had done wrong as stated in HPI. We will continue to titrate Latuda to 120 mg p.o. daily, for psychosis. Continue rest of medications. Continue to monitor mood and behavior. Discharge planning in progress. Justification for Continued Inpatient Stay: At risk of further decompensation at lower level care.
[2018-04-01] MEDS: LORazepam 1 MG Tablet PO SCH ×3 (12:05→20:13)
[2018-04-01] MEDS: Mirtazapine 15 MG Tablet PO SCH (20:09)
[2018-04-02] MEDS: Acetaminophen 325 MG Tablet PO PRN (06:49)
[2018-04-02] MEDS: Senna/Docusate Sodium 8.6/50 MG Tablet PO SCH ×2 (14:25→21:19)
[2018-04-02] MEDS: Metoprolol Tartrate 50 MG Tablet PO SCH ×2 (14:25→21:19)
[2018-04-02] MEDS: LORazepam 1 MG Tablet PO SCH ×3 (14:25→22:58)
--- NOTE | 2018-04-02 17:21 | P.PNPSY ---
Subjective Chief Complaint: psychosis Remarks: Patient seen for follow-up, chart reviewed. Discussion with nursing staff reported that patient patient was having visual hallucinations of dogs yesterday continues to have episodes of confusion but slept well last evening. Patient was found sitting in hospital chair in casual clothing noted be somewhat somnolent but able to wake up to interact with interview today. Patient states that she slept well last evening states her appetite continues to improve her mood has been okay today but continues report feeling depressed and when asked about suicidality she states "may be". Patient denies any auditory hallucinations denies any visual hallucinations today but did report seeing "colors on the wall" yesterday. She also mentions to having ringing in her ears but states that he has been ongoing prior to her admission. Patient mentions and ask when she will be going to court but was reminded that patient had presented to mental health court last week which she does not recall. Patient agrees to participate more groups and activities today. Review of Systems All other systems reviewed negative except as stated in HPI Mental Status Examination Appearance: Appropriate (In hospital gown) Consciousness: Alert Orientation: Person, Date/Time (Approximate) Motor Activity: Other (No motor abnormalities noted) Speech: Slow Language: Adequate Fund of Knowledge: Inadequate Attention and Concentration: Easily distracted Memory: Impaired Mood: Other (Depressed) Affect: Blunt (More reactive) Thought Process & Associations: Disorganized (At times with some confusion), Other ([place]) Thought Content: Bizarre thinking, Hallucinations Hallucination Type: Visual (Denies today) Delusion Type: None Suicidal Ideation: Yes (decreasing but continues to be present) Suicidal Plan: No Suicidal Intention: No Homicidal Ideation: No Homicidal Plan: No Homicidal Intention: No Insight: Poor Judgment: Impulsive Assessment and Plan - Assessment (1) Schizoaffective disorder, unspecified Code(s): F25.9 - Schizoaffective disorder, unspecified Status: Acute - Plan Plan: Patient continues with episodes of confusion continues with visual hallucinations but denies today but noted to be more reactive engaging interview today. We will monitor for sedation today as a taper of lorazepam will be considered as patient noted to be more reactive and not noted to be catatonic today. Patient continued with suicidal ideations and depressed mood but states it is improving. We will continue current treatment. We will continue to monitor mood and behavior. Discharge planning in progress. Justification for Continued Inpatient Stay: At risk of further decompensation at lower level care.
[2018-04-02] MEDS: Mirtazapine 15 MG Tablet PO SCH (21:19)
[2018-04-03] MEDS: LORazepam 1 MG Tablet PO SCH ×3 (09:40→20:26)
[2018-04-03] MEDS: Senna/Docusate Sodium 8.6/50 MG Tablet PO SCH ×2 (09:42→20:27)
[2018-04-03] MEDS: Metoprolol Tartrate 50 MG Tablet PO SCH ×2 (09:43→20:27)
--- NOTE | 2018-04-03 16:12 | P.PNPSY ---
Subjective Chief Complaint: psychosis Remarks: Patient seen for follow-up, chart reviewed. Discussion with nursing staff reported that patient less confused today attending groups compliant medications noted to be lethargic less evening but slept. Patient was found sitting hospital chair continues to believe that she will be going to court today despite being explained to patient yesterday that she will not be going to court until next if she continues to be on the inpatient unit. Patient reports having slept well with good appetite and attending groups and states that her mood has been "okay" she is noted to have decreasing visual hallucinations continues to have vague suicide ideations as well as decreased depressed mood. She states having spoken to her as well as her son today. Review of Systems All other systems reviewed negative except as stated in HPI Mental Status Examination Appearance: Appropriate (In hospital gown) Consciousness: Alert Orientation: Person, Date/Time (Approximate) Motor Activity: Other (No motor abnormalities noted) Speech: Slow Language: Adequate Fund of Knowledge: Inadequate Attention and Concentration: Easily distracted Memory: Impaired Mood: Other (Depressed) Affect: Blunt (More reactive) Thought Process & Associations: Disorganized (At times with some confusion), Other ([place]) Thought Content: Bizarre thinking, Hallucinations (Decreasing) Hallucination Type: Visual Delusion Type: None Suicidal Ideation: Yes (Vague) Suicidal Plan: No Suicidal Intention: No Homicidal Ideation: No Homicidal Plan: No Homicidal Intention: No Insight: Poor Judgment: Impulsive Assessment and Plan - Assessment (1) Schizoaffective disorder, unspecified Code(s): F25.9 - Schizoaffective disorder, unspecified Status: Acute - Plan Plan: Patient currently continues to have episodes of confusion although noted to be more engaging and reactive was noted to be lethargic last evening. We will start to down titrate lorazepam as patient no longer showing signs of catatonia to 0.5 mg a.m./1 mg p.m./1 mg at bedtime, continue rest of medications will now have Benadryl as needed for insomnia. Continue to monitor mood and behavior. Continue to encourage patient to participate in groups and activities. Discharge planning in progress. Justification for Continued Inpatient Stay: At risk of further decompensation at lower level care.
[2018-04-03] MEDS: Mirtazapine 15 MG Tablet PO SCH (20:27)
--- NOTE | 2018-04-04 09:38 | P.PNPSY ---
Subjective Chief Complaint: psychosis Remarks: Patient seen today in her room with nurse Shruti, chart reviewed, patient compliant medications. Patient somewhat sedated but arousable to alert somewhat irritable today denies suicidality or voices. For now continue treatment Dr. Cates has decreased the a.m. dose of Ativan to 0.5 mg continue the late afternoon and evening dose at 1 mg we will leave that order for now Review of Systems All other systems reviewed negative except as stated in HPI Mental Status Examination Appearance: Appropriate (In hospital gown) Consciousness: Alert Orientation: Person, Date/Time (Approximate) Motor Activity: Other (No motor abnormalities noted) Speech: Slow Language: Adequate Fund of Knowledge: Inadequate Attention and Concentration: Easily distracted Memory: Impaired Mood: Other (Depressed) Affect: Blunt (More reactive) Thought Process & Associations: Disorganized (At times with some confusion), Other ([place]) Thought Content: Bizarre thinking, Hallucinations (Decreasing) Hallucination Type: Visual Delusion Type: None Suicidal Ideation: Yes (Denies today) Suicidal Plan: No Suicidal Intention: No Homicidal Ideation: No Homicidal Plan: No Homicidal Intention: No Insight: Poor Judgment: Impulsive Assessment and Plan - Assessment (1) Schizoaffective disorder, unspecified Code(s): F25.9 - Schizoaffective disorder, unspecified Status: Acute - Plan Plan: Patient remained somewhat depressed vigilant though it appears more cooperative today than prior, compliant medication for now continue treatment Justification for Continued Inpatient Stay: At this time patient would decompensate a place to a lower level of care Discharge Planning: To be determined with consultation of family
[2018-04-04] MEDS: Aluminum/Magnesium/Simethacone Susp 30 ML UDC PO PRN (10:04)
[2018-04-04] MEDS: Senna/Docusate Sodium 8.6/50 MG Tablet PO SCH ×2 (10:07→21:22)
[2018-04-04] MEDS: LORazepam 0.5 MG Tablet PO SCH (10:07)
[2018-04-04] MEDS: Metoprolol Tartrate 50 MG Tablet PO SCH ×2 (10:07→21:22)
[2018-04-04] MEDS: LORazepam 1 MG Tablet PO SCH ×2 (14:58→21:22)
[2018-04-04] MEDS: Mirtazapine 15 MG Tablet PO SCH (21:22)
[2018-04-05] MEDS: LORazepam 0.5 MG Tablet PO SCH (08:03)
[2018-04-05] MEDS: Metoprolol Tartrate 50 MG Tablet PO SCH ×2 (08:03→20:57)
[2018-04-05] MEDS: Senna/Docusate Sodium 8.6/50 MG Tablet PO SCH ×2 (08:03→20:57)
[2018-04-05] MEDS: Aluminum/Magnesium/Simethacone Susp 30 ML UDC PO PRN (08:14)
--- NOTE | 2018-04-05 13:06 | P.PNPSY ---
Subjective Chief Complaint: psychosis Remarks: Patient was seen and case discussed with nursing. Patient is pleasant and cooperative with exam. Compliant with medications. Compared to her last visit she is more logical and goal oriented. Her hallucinations have resolved. Behaving well on the unit Mental Status Examination Appearance: Appropriate (In hospital gown) Consciousness: Alert Orientation: Person, Date/Time (Approximate) Motor Activity: Other (No motor abnormalities noted) Speech: Slow Language: Adequate Fund of Knowledge: Inadequate Attention and Concentration: Easily distracted Memory: Impaired Mood: Other (Depressed) Affect: Blunt (More reactive) Thought Process & Associations: Disorganized (At times with some confusion), Other ([place]) Thought Content: Bizarre thinking, Hallucinations (Decreasing) Hallucination Type: Visual Delusion Type: None Suicidal Ideation: Yes (Denies today) Suicidal Plan: No Suicidal Intention: No Homicidal Ideation: No Homicidal Plan: No Homicidal Intention: No Insight: Poor Judgment: Impulsive Assessment and Plan - Assessment (1) Schizoaffective disorder, unspecified Code(s): F25.9 - Schizoaffective disorder, unspecified Status: Acute - Plan Plan: Continue current treatment plan Justification for Continued Inpatient Stay: Patient would decompensate in a less restrictive setting
[2018-04-05] MEDS: LORazepam 1 MG Tablet PO SCH ×2 (14:15→20:59)
[2018-04-05] MEDS: Mirtazapine 15 MG Tablet PO SCH (20:59)
[2018-04-06 05:47] VITALS: TEMP 98.8
[2018-04-06] MEDS: LORazepam 0.5 MG Tablet PO SCH (08:04)
[2018-04-06] MEDS: Metoprolol Tartrate 50 MG Tablet PO SCH ×2 (08:04→20:46)
[2018-04-06] MEDS: Senna/Docusate Sodium 8.6/50 MG Tablet PO SCH ×2 (08:05→20:46)
[2018-04-06] MEDS: LORazepam 1 MG Tablet PO SCH ×2 (14:29→21:28)
--- NOTE | 2018-04-06 16:13 | P.DSPSY ---
Psychiatry Discharge Summary Inpatient Psychiatric care?: Yes Advance Directives: No Mental Health Advance Directive: No Health Care Proxy: No - Admission Admission Date: March 19, 2018 10:48 - Admission Diagnosis (1) Schizoaffective disorder, unspecified Code(s): F25.9 - Schizoaffective disorder, unspecified Brief History: Patient is a 62-year-old female presenting here for psychosis and suicidal ideation. Patient started out in the psychiatric unit and then showed signs of sepsis with a fever and tachycardia and was transferred to the medical/surgical unit. Patient is confused and says she feels fearful. She is alert and oriented x2. Per record she had suicidal ideation however patient denies suicidal or homicidal ideation intent or plan for this visit. She is complaining of visual hallucinations of seeing pictures on the wall. She has nonspecific paranoia. She does deny auditory visual hallucinations. Pharmacy was called and current medications include Latuda 80 mg daily, Remeron 15 mg p.o. nightly, BuSpar 15 mg p.o. 3 times daily, Cogentin 1 mg daily. Past psych: Schizophrenia, denies history of suicide attempts. Unclear if she has history of admissions. Past medical: See chart Past Famhx: Unsure Past Social: Patient is . She has 2 sons live in [place]. She denies any substance use. Tobacco Use In Past 30 Days: No How Often Do You Have a Drink Containing Alcohol: Never Hospital Course: Patient is a 62-year-old -[place] woman, , domiciled with , with a past psychiatric history of schizophrenia as per chart, previous psychiatric admissions, no previous suicide attempts who was admitted initially under [facility] act due to suicidal ideation and transferred to the inpatient psychiatry unit for further evaluation and management. Patient was admitted to a locked, inpatient psychiatric unit. Appropriate precautions were in place throughout patient's hospital stay. Patient was seen and examined on the unit by psychiatry. Psychotropic medications were adjusted. There was no further evidence of any suicidality and homicidality on the inpatient unit. Patient's mood improved with the benefit of psychopharmacological treatment and had no behavioral disturbance since admission. Patient was noted to have reached stable mood, noted to participate and engage in treatment and interact with staff adequately. Patient noted to be future oriented with plans to continue treatment and outpatient follow-up appointments for continuity of care. Counselor has arranged discharge plan which patient return back to . On the day of discharge: Patient seen and examined; chart reviewed. Case discussed with nurse and counselor. No behavioral issues overnight. On my examination today, the patient denies any suicidal homicidal ideation, intent or plan on direct questioning and contracts for safety. Patient denies any perceptional disturbances and no delusional material verbalized today. Patient denies any side effects from medication and has understanding of medication regimen and education. No physical complaints. Suicide and violence risk assessment on day of discharge both suggest lower imminent risk, and the patient 's level of function is adequate for plan level of outpatient care. Patient has maximized benefit from this inpatient psychiatric hospital stay and will be discharged with discharge plan as arranged by counselor. Patient advised to return to psychiatric emergency room for any concerning psychiatric symptoms. Patient agrees with plan. - Discharge Discharge Date: 04/06/18 - Discharge Diagnosis (1) Schizoaffective disorder, unspecified Code(s): F25.9 - Schizoaffective disorder, unspecified Status: Acute Discharge Disposition: Home - Discharge Instructions Discharge Diet: Heart Healthy Diet Activities You Can Perform: Weight Bearing As Tolerat - Discharge Time > 30 minutes Mental Status Examination Appearance: Appropriate (In hospital gown) Consciousness: Alert Orientation: Person, Place, Date/Time Motor Activity: Other (No motor abnormalities noted) Speech: Slow Language: Adequate Fund of Knowledge: Inadequate Attention and Concentration: Adequate Memory: Impaired Mood: Appropriate Affect: Appropriate Thought Process & Associations: Intact, Goal directed, Linear Thought Content: Appropriate Hallucination Type: None Delusion Type: None Suicidal Ideation: No Suicidal Plan: No Suicidal Intention: No Homicidal Ideation: No Homicidal Plan: No Homicidal Intention: No Insight: Fair Judgment: Impulsive Discharge/Advance Care Plan - Results Vital Signs: Last Vital Signs Temp 98.8 F 04/06/18 05:46 Pulse 68 04/06/18 05:46 Resp 18 04/06/18 05:46 BP 131/61 04/06/18 05:46 Pulse Ox 99 04/06/18 05:46 Lab Results: Laboratory Results Hemoglobin A1c 5.8 % (4.3-6.0) 03/21/18 06:50 Triglycerides 123 mg/dL (42-150) 03/20/18 09:32 Cholesterol 161 mg/dL (120-200) 03/20/18 09:32 LDL Cholesterol, Calc 89 mg/dL (0-99) 03/20/18 09:32 HDL Cholesterol 47.1 mg/dL (40.0-60.0) 03/20/18 09:32 TSH 2.200 uIU/mL (0.358-3.740) 03/20/18 10:15 Free T4 1.34 ng/dL (0.76-1.46) 03/20/18 10:15 Urine Culture Comments Culture not ind 03/23/18 16:45 Summary of Procedures: none Imaging: ITS Impressions Chest X-Ray 03/20/18 10:10 CONCLUSION: No acute findings. Elevated right hemidiaphragm similar to December 2016. Pending Results: None - Medications Number of antipsychotic medications at discharge: 1 - Discharge Care Plan Goals to Promote Your Health: * To prevent worsening of your condition and complications * To maintain your health at the optimal level Directions to Meet Your Goals: Take your medications as prescribed Follow your dietary instruction Follow activity as directed Keep your appointments as scheduled Take your immunizations and boosters as scheduled If your symptoms worsen call your PCP, if no PCP go to Urgent Care Center or Emergency Room For 16/12 questions related to your inpatient stay or results of tests pending at discharge, please contact Dr. Arvin Cates MD at Smoking is Dangerous to Your Health. Avoid second hand smoking
[2018-04-06] MEDS: Mirtazapine 15 MG Tablet PO SCH (20:45)
[2018-04-07 06:03] VITALS: BP 110/57; PULSE 64; RESP 15; O2SAT 98
[2018-04-07] MEDS: LORazepam 0.5 MG Tablet PO SCH (08:06)
[2018-04-07] MEDS: Senna/Docusate Sodium 8.6/50 MG Tablet PO SCH (08:06)
[2018-04-07] MEDS: Metoprolol Tartrate 50 MG Tablet PO SCH (08:06)
--- NOTE | 2018-04-07 15:28 | P.PNPSY ---
Subjective Chief Complaint: psychosis Remarks: Patient seen for follow-up, chart reviewed. Discussion with nursing staff reported that patient was scheduled to return back home with but had difficulty with the vehicle was unable to pick patient up. Patient was found sitting hospital chair with her belongings at bedside stating that she is ready to go home. She reports feeling well denies any concerns at this time and plans to continue treatment and continuing outpatient mental health follow-up. Patient has been met with check writer and was asking if patient had been required to stay in the hospital for 2 weeks as was deemed by the addiction counselor but was explained that this was a timeframe which patient had for continued treatment but not initially required to stay for 2 weeks. He stated understanding and was encouraged to continue to provide support for patient and that she maintain adherence to treatment and outpatient follow-up. He was also advised to have patient return back to the ER in case of any psychiatric emergency which she agreed. Review of Systems All other systems reviewed negative except as stated in HPI Mental Status Examination Appearance: Appropriate (In hospital gown) Consciousness: Alert Orientation: Person, Place, Date/Time Motor Activity: Other (No motor abnormalities noted) Speech: Slow Language: Adequate Fund of Knowledge: Inadequate Attention and Concentration: Adequate Memory: Impaired Mood: Appropriate Affect: Appropriate Thought Process & Associations: Intact, Goal directed, Linear Thought Content: Appropriate Hallucination Type: None Delusion Type: None Suicidal Ideation: No Suicidal Plan: No Suicidal Intention: No Homicidal Ideation: No Homicidal Plan: No Homicidal Intention: No Insight: Fair Judgment: Impulsive Assessment and Plan - Assessment (1) Schizoaffective disorder, unspecified Code(s): F25.9 - Schizoaffective disorder, unspecified Status: Acute - Plan Plan: Patient will be discharged back home with and was unable to have left yesterday due to transportation issues. Patient to continue treatment plan as set up by treatment team. Patient continued to deny any SI, HI, AVH or delusions. Justification for Continued Inpatient Stay: Patient to be discharged back to her today.
== END 2018-04-07 09:30 | disposition home or self-care (01) ==
LOC: NEPJ 10:59 → NEDA 03-19 10:48 → H250 03-19 15:08 → H4EA 03-20 10:53 → HCPC 03-23 08:57 → H4EA 03-23 09:00
PROVIDERS: ADMIT Student in an Organized Health Care Education/Training Program; ATTEND Student in an Organized Health Care Education/Training Program